=== PATIENT | female | born 1970 | race Caucasian/White ===

== ENCOUNTER 2018-04-26 10:42 | Inpatient (IN) | payer SELFPAY ==
[2018-04-26] VITALS (17 sets, daily range): BP systolic 90–139; BP diastolic 57–85; PULSE 86–127; RESP 12–32; TEMP 99.8–100.6; O2SAT 88–100
[~2018-04-26] VITALS: Ht 162.6 cm; Wt 76.2 kg
[2018-04-26] MEDS ORDERED: ETOMIDATE 40 MG/20 ML VIAL ONE (10:45)
[2018-04-26] MEDS ORDERED: SUCCINYLCHOLINE CHLORIDE 200 MG/10 ML VIAL ONE (10:45)
[2018-04-26] MEDS ORDERED: ETOMIDATE 20 MG/10 ML VIAL IV PUSH ONE (11:00)
[2018-04-26] MEDS ORDERED: ROCURONIUM INJ 50 MG/5 ML VIAL IV ONE (11:00)
--- NOTE | 2018-04-26 11:12 | PD ---
HPI Chief Complaint: OD/ Ingestion Time Seen by Provider: 10:56 Travel History International Travel<30 days: No (unknown) Contact w/Intl Traveler<30days: No (unknown) History of Present Illness HPI 48yo F with unknown PMH was brought in by [facility] for possible overdose. Pt was in a hotel in [place] and pt did not check out so [facility] was called and found pt on the floor, mumbling and not responding appropriately. There were many drug paraphernalia on the floor. Pt was in respiratory distress and O2 sat was in the 70s on room air. Pt placed on 100% nonrebreather mask and saturating in the 80s. Pt is moving all extremities but not oriented or answering questions. Pt is tachypneic with diffuse coarse breath sounds in bilateral lungs. Pt was emergently intubated. Unable to obtain further history. PFSH Past Medical History Medical History: Unable to Obtain Diminished Hearing: No Tetanus Vaccination: Unknown ?: Unknown Past Surgical History Surgical History: Unable to Obtain Social History Tobacco Use: No Substance Use: Yes Allergies-Medications (Allergen,Severity, Reaction): Coded Allergies: No Allergy Information Available (Unverified , 04/26/18) Reported Meds & Prescriptions Reported Meds & Active Scripts Active Active Prescriptions or Reported Medications Unobtainable Review of Systems ROS Limitations: Clinical Condition Physical Exam Narrative GENERAL: 48yo F in severe distress. SKIN: Focused skin assessment warm/dry. HEAD: Atraumatic. Normocephalic. EYES: Pupils equal and round at 3mm bilaterally. ENT: No nasal bleeding or discharge. Mucous membranes pink and moist. NECK: Trachea midline. No JVD. CARDIOVASCULAR: Tachycardic in the 110s. No murmur appreciated. RESPIRATORY: + accessory muscle use. Coarse breath sounds bilaterally. GASTROINTESTINAL: Abdomen soft, non-tender, nondistended. Hepatic and splenic margins not palpable. MUSCULOSKELETAL: No obvious deformities. No clubbing. No cyanosis. No edema. NEUROLOGICAL: Opens eyes, moves all extremities but mumbling and not answer questions. GCS 12. Data Data Last Documented VS Vital Signs Date Time Temp Pulse Resp B/P (MAP) Pulse Ox O2 Delivery O2 Flow Rate FiO2 04/26/18 11:57 99.8 127 18 139/85 (103) 95 Ventilator 100 04/26/18 10:50 15.00 Orders Orders Succinylcholine Inj (Quelicin Inj) (04/26/18 10:45) Etomidate Inj (Amidate Inj) (04/26/18 10:45) Rocuronium Inj (Zemuron Inj) (04/26/18 11:00) Etomidate Inj (Amidate Inj) (04/26/18 11:00) Complete Blood Count With Diff (04/26/18 10:56) Comprehensive Metabolic Panel (04/26/18 10:56) Prothrombin Time / Inr (Pt) (04/26/18 10:56) Act Partial Throm Time (Ptt) (04/26/18 10:56) Osmolality,Serum (04/26/18 10:56) Urinalysis - C+S If Indicated (04/26/18 10:56) Chest, Single Ap (04/26/18 10:56) Ct Brain W/O Iv Contrast(Rout) (04/26/18 10:56) Drug Screen, Random Urine (04/26/18 10:56) Alcohol (Ethanol) (04/26/18 10:56) Salicylates (Aspirin) (04/26/18 10:56) Tylenol (Acetaminophen) (04/26/18 10:56) Ed Urine Pregnancytest Poc (04/26/18 10:56) Urinary Catheter Insert/Apply (04/26/18 10:56) Restraints Non-Violent ARACELIS.Q3H (04/26/18 10:56) Arterial Blood Gas (Abg) (04/26/18 ) Propofol 1000 Mg/100 Ml Inj (Diprivan 10 (04/26/18 11:00) ^ Infusion (04/26/18 11:00) Troponin I (04/26/18 11:04) Electrocardiogram (04/26/18 11:06) Electrocardiogram (04/26/18 10:47) Piperacil-Tazo 4.5 Gm Premix (Zosyn 4.5 (04/26/18 11:45) Sodium Chlor 0.9% 1000 Ml Inj (Ns 1000 M (04/26/18 11:45) Vancomycin Inj (Vancomycin Inj) (04/26/18 11:45) Blood Culture (04/26/18 11:41) Lactic Acid Sepsis Protocol (04/26/18 12:00) Admit Order (Ed Use Only) (04/26/18 12:01) Sodium Chlor 0.9% 1000 Ml Inj (Ns 1000 M (04/26/18 12:15) Labs Laboratory Tests Test 04/26/18 10:55 04/26/18 10:58 04/26/18 11:31 04/26/18 12:00 White Blood Count 16.9 TH/MM3 Red Blood Count 4.56 MIL/MM3 Hemoglobin 13.8 GM/DL Hematocrit 42.0 % Mean Corpuscular Volume 92.2 FL Mean Corpuscular Hemoglobin 30.3 PG Mean Corpuscular Hemoglobin Concent 32.8 % Red Cell Distribution Width 14.6 % Platelet Count 315 TH/MM3 Mean Platelet Volume 8.6 FL Neutrophils (%) (Auto) 93.8 % Lymphocytes (%) (Auto) 3.8 % Monocytes (%) (Auto) 2.3 % Eosinophils (%) (Auto) 0.0 % Basophils (%) (Auto) 0.1 % Neutrophils # (Auto) 15.9 TH/MM3 Lymphocytes # (Auto) 0.6 TH/MM3 Monocytes # (Auto) 0.4 TH/MM3 Eosinophils # (Auto) 0.0 TH/MM3 Basophils # (Auto) 0.0 TH/MM3 CBC Comment DIFF FINAL Differential Comment Prothrombin Time 10.3 SEC Prothromb Time International Ratio 1.0 RATIO Activated Partial Thromboplast Time 21.9 SEC Blood Urea Nitrogen 19 MG/DL Creatinine 1.47 MG/DL Random Glucose 177 MG/DL Total Protein 7.6 GM/DL Albumin 3.8 GM/DL Calcium Level 8.3 MG/DL Alkaline Phosphatase 189 U/L Aspartate Amino Transf (AST/SGOT) 68 U/L Alanine Aminotransferase (ALT/SGPT) 39 U/L Total Bilirubin 0.8 MG/DL Sodium Level 141 MEQ/L Potassium Level 3.8 MEQ/L Chloride Level 106 MEQ/L Carbon Dioxide Level 23.4 MEQ/L Anion Gap 12 MEQ/L Estimat Glomerular Filtration Rate 38 ML/MIN Serum Osmolality 304 MOSM/KG Troponin I 0.02 NG/ML Random Cortisol 60.0 MCG/DL Salicylates Level LESS THAN 1.7 MG/DL Acetaminophen Level LESS THAN 2.0 MCG/ML Ethyl Alcohol Level LESS THAN 3 MG/DL Urine Color YELLOW Urine Turbidity CLEAR Urine pH 6.0 Urine Specific [place] 1.021 Urine Protein TRACE mg/dL Urine Glucose (UA) 300 mg/dL Urine Ketones NEG mg/dL Urine Occult Blood SMALL Urine Nitrite NEG Urine Bilirubin NEG Urine Urobilinogen LESS THAN 2.0 MG/DL Urine Leukocyte Esterase NEG Urine RBC 1 /hpf Urine WBC 1 /hpf Urine Squamous Epithelial Cells 1 /hpf Urine Mucus FEW /lpf Microscopic Urinalysis Comment CULT NOT INDICATED Urine Opiates Screen NEG Urine Barbiturates Screen NEG Urine Amphetamines Screen POS Urine Benzodiazepines Screen NEG Urine Cocaine Screen NEG Urine Cannabinoids Screen NEG Blood Gas Puncture Site LT RADIAL Blood Gas Patient Temperature 98.6 Blood Gas HCO3 21 mmol/L Blood Gas Base Excess -6.6 mmol/L Blood Gas Oxygen Saturation 93 % Arterial Blood pH 7.16 Arterial Blood Partial Pressure CO2 61 mmHg Arterial Blood Partial Pressure O2 90 mmHG Arterial Blood Oxygen Content 18.0 Vol % Arterial Blood Carboxyhemoglobin 0.6 % Arterial Blood Methemoglobin 0.7 % Blood Gas Hemoglobin 13.8 G/DL Oxygen Delivery Device VENTILATOR Blood Gas Ventilator Setting Blood Gas Inspired Oxygen 100 % Lactic Acid Level 2.3 mmol/L MDM Medical Decision Making Medical Screen Exam Complete: Yes Emergency Medical Condition: Yes Interpretation(s) EKG: Sinus tachycardia at 114bpm. LAD. Incomplete LBBB. Differential Diagnosis Pulmonary edema vs. aspiration pneumonia vs. AMS secondary to drug use vs. ICH Narrative Course 48yo F was brought in respiratory distress after being found on hotel room floor with drug paraphernalia around her. Pt was saturating in the 70s on room air and 80s with 100% nonrebreather with coarse breath sounds bilaterally so she was emergently intubated in the ED. There was blood and pink frothy sputum seen in airway during intubation. Labs reviewed, leukocytosis at 16.9. H/H normal. BUN/creatinine elevated at 19/1.47. Serum osmolality mildly elevated at 304. Osmolal gap is 5.38 which is normal. AST elevated at 68, pt may be chronic alcoholic. Utox positive for amphetamine. Alcohol negative. Acetaminophen negative. CXR showed diffuse interstitial and airspace disease predominantly throughout right lung. ET and NG tube in good position. No pneumothorax. CT brain negative. ABG showed respiratory acidosis with pH of 7.161, pCO2 of 60.4. HCO3 20.8. Will increase RR. Pt given NS IVFx2 and empirically covered with vancomycin and zosyn. Pt has good peripheral IV access with 18 gauge in left AC and 20 gauge in right AC. Troponin pending. Discussed with floor steward/stewardess Dr. Hayden and accepted to her service. Critical Care Narrative Aggregate critical care time was 45 minutes. Time to perform other separately billable procedures was not included in the critical care time. My time did not include minutes spent treating any other patients simultaneously or on activities that did not directly contribute to the patient's treatment. The services I provided to this patient were to treat and/or prevent clinically significant deterioration that could result in: cardiovascular collapse or . I provided critical care services requiring my management, as noted below: Chart data review, documentation time, medication orders and management, vital sign assessments/reviewing monitor data, ordering and reviewing lab tests, ordering and interpreting/reviewing x-rays and diagnostic studies, care of the patient and discussion of the patient with the admitting physicians. Procedures Procedure Narrative The patient was put in optimal position for the procedure. Rapid sequence intubation was initiated by me using 20 milligrams of etomidate IV and 50 milligrams of rocuronium IV. The patient was intubated with a 7.5 cuffed endotracheal tube. Tube placement was confirmed by visualization of the tube and balloon passing through the cords, capnometry and subsequent chest x-ray. Breath sounds were equal and well aerated bilaterally postintubation. No breath sounds over stomach. Patient tolerated procedure well. Diagnosis Primary Impression: Acute respiratory failure with hypoxia and hypercapnia Admitting Information Admitting Physician Requests: Admit Scripts Unable to Obtain Active Prescriptions or Reported Meds Devorah Valera DO April 26, 2018 11:12
[2018-04-26 11:18] LABS: AUTOMATED NEUTROPHIL # 15.9 TH/MM3 (1.8-7.7); BASOPHIL % 0.1 % (0.0-2.0); HEMOGLOBIN 13.8 GM/DL (11.6-15.3); LYMPH % 3.8 % (9.0-44.0); LYMPHOCYTE # 0.6 TH/MM3 (1.0-4.8); MEAN CELL VOLUME 92.2 FL (80.0-100.0); MEAN CORPUSCULAR HEMOGLOBIN 30.3 PG (27.0-34.0); MEAN CORPUSCULAR HGB CONC 32.8 % (32.0-36.0); MEAN PLATELET VOLUME 8.6 FL (7.0-11.0); MONO % 2.3 % (0.0-8.0); MONOCYTE # 0.4 TH/MM3 (0-0.9); NEUT % 93.8 % (16.0-70.0); PLATELET COUNT 315 TH/MM3 (150-450); RED BLOOD COUNT 4.56 MIL/MM3 (4.00-5.30); RED CELL DISTRIBUTION WIDTH 14.6 % (11.6-17.2); WHITE BLOOD COUNT 16.9 TH/MM3 (4.0-11.0)
--- NOTE | 2018-04-26 11:24 | RADRPT ---
EXAM DATE: 04/26/2018 11:18 AM EDT AGE/SEX: 48 years / Female INDICATIONS: Shortness of breath and hypoxemia. CLINICAL DATA: This is the patient's initial encounter. Patient reports that signs and symptoms have been present for 1 day and indicates a pain score of Nonresponsive. MEDICAL/SURGICAL HISTORY: Non-responsive. Non-responsive. COMPARISON: No prior [place] exams available for comparison. FINDINGS: Patient is status post placement of an endotracheal tube and NG tube which appear to be in good posit ion. There is no pneumothorax. There is diffuse interstitial and airspace disease throughout the rig ht lung. Left lung is grossly clear. The bony structures are grossly intact. The heart size is upper limits of normal. No significant pleural effusions are demonstrated. CONCLUSION: 1. Diffuse interstitial and airspace disease is seen predominantly throughout the right lung. 2. The endotracheal tube and NG tube appear to be in good position. 3. No evidence of pneumothorax. Electronically signed by: Paco Mora MD 04/26/2018 11:22 AM EDT
[2018-04-26 11:30] LABS: PROTHROMBIN TIME - PATIENT 10.3 SEC (9.8-11.6)
[2018-04-26 11:34] LABS: ALBUMIN 3.8 GM/DL (3.4-5.0); ALT (GPT) 39 U/L (10-53); AST (GOT) 68 U/L (15-37); BICARBONATE 23.4 MEQ/L (21.0-32.0); BLOOD UREA NITROGEN 19 MG/DL (7-18); CALCIUM 8.3 MG/DL (8.5-10.1); CHLORIDE 106 MEQ/L (98-107); CREATININE 1.47 MG/DL (0.50-1.00); GLOMERULAR FILTRATION RATE 38 ML/MIN (>89); GLUCOSE,RANDOM 177 MG/DL (74-106); SODIUM (NA) 141 MEQ/L (136-145)
[2018-04-26 11:36] LABS: ALKALINE PHOSPHATASE 189 U/L (45-117); TOTAL BILIRUBIN ADULT 0.8 MG/DL (0.2-1.0); TOTAL PROTEIN 7.6 GM/DL (6.4-8.2)
[2018-04-26 11:39] LABS: ACETAMINOPHEN LESS THAN 2.0 MCG/ML (10.0-30.0)
[2018-04-26] MEDS: PROPOFOL 1000 MG/100 ML INJ 100 ML IV PRN ×2 (11:42→18:09)
[2018-04-26] MEDS ORDERED: PIPERACIL-TAZO 4.5 GM PREMIX 100 ML IV ONE (11:45)
[2018-04-26] MEDS ORDERED: SODIUM CHLOR 0.9% 1000 ML INJ 1,000 ML IV ONE ×2 (11:45→12:15)
[2018-04-26] MEDS ORDERED: VANCOMYCIN INJ 1,050 MG in SODIUM CHLOR 0.9% 250 ML INJ 250 ML IV ONE (11:45)
--- NOTE | 2018-04-26 11:47 | RADRPT ---
EXAM DATE: 04/26/2018 11:34 AM EDT AGE/SEX: 48 years / Female INDICATIONS: Found in hotel room, possible overdose. CLINICAL DATA: This is the patient's initial encounter. Patient reports that signs and symptoms have been present for 1 day and indicates a pain score of 0/10. MEDICAL/SURGICAL HISTORY: Non-responsive. Non-responsive. RADIATION DOSE: 56.35 CTDI (mGy) COMPARISON: No prior [facility] exams available for comparison. TECHNIQUE: CT of the head without contrast. Using automated exposure control and adjustment of the mA and/or kV according to patient size, radiation dose was kept as low as reasonably achievable to ob tain optimal diagnostic quality images. FINDINGS: Cerebrum: The ventricles are normal for age. No evidence of midline shift, mass lesion, hemorrhage or acute infarction. No extraaxial fluid collections are seen. Posterior Fossa: The cerebellum and brainstem are intact. The 4th ventricle is midline. The cerebe llopontine angle is unremarkable. Extracranial: The visualized portion of the orbits is intact. Skull: The calvaria is intact. No evidence of skull fracture. CONCLUSION: 1. Unremarkable CT scan of the brain. Electronically signed by: Paco Mora MD 04/26/2018 11:45 AM EDT
[2018-04-26 11:55] LABS: BILIRUBIN, URINE NEG (NEG); BLOOD, URINE SMALL (NEG); GLUCOSE,URINE 300 mg/dL (NEG); KETONE, URINE NEG (NEG); MUCUS URINE FEW /lpf (OCC); NITRITE,URINE NEG (NEG); SQUAMOUS EPITHELIAL CELL URINE 1 /hpf (0-5); URINE COLOR YELLOW (YELLW/STRAW); URINE LEUKOCYTE ESTERASE NEG (NEG)
[2018-04-26] MEDS ORDERED: MAGNESIUM OXIDE 400 MG TAB PO PRN (12:00)
[2018-04-26] MEDS ORDERED: NURSING INFORMATION XX SCH (12:00)
[2018-04-26] MEDS ORDERED: SODIUM PHOSPHATE INJ 30 MMOL in SODIUM CHLOR 0.9% 250 ML INJ 240 ML IV PRN (12:00)
[2018-04-26] MEDS: PIPERACIL-TAZO 4.5 GM PREMIX 100 ML IV SCH ×3 (12:00→23:42)
[2018-04-26] MEDS ORDERED: POTASSIUM CHLOR 40 MEQ PREMIX 100 ML IV PRN ×2 (12:00)
[2018-04-26] MEDS ORDERED: ACETAMINOPHEN 325 MG TAB PO PRN (12:00)
[2018-04-26] MEDS ORDERED: MAGNESIUM SULFATE INJ 2 GM in SODIUM CHLORIDE 0.9% INJ 96 ML IV PRN (12:00)
[2018-04-26] MEDS ORDERED: PROPOFOL 1000 MG/100 ML INJ 100 ML IV PRN (12:00)
[2018-04-26] MEDS ORDERED: CHLORHEXIDINE GLUCONATE 2 % 1 PACK (2 CLOTHS) TOP PRN (12:00)
[2018-04-26] MEDS ORDERED: POTASSIUM PHOSPHATE INJ 30 MMOL in SODIUM CHLOR 0.9% 250 ML INJ 250 ML IV PRN (12:00)
[2018-04-26] MEDS ORDERED: LACTULOSE SYRUP 20 GM/30 ML CUP PO PRN (12:00)
[2018-04-26] MEDS ORDERED: BISACODYL 10 MG SUPP RECTAL PRN (12:00)
[2018-04-26] MEDS ORDERED: SODIUM CHLORIDE 0.9% FLUSH 10 ML FLUSH IV FLUSH PRN (12:00)
[2018-04-26] MEDS ORDERED: SENNOSIDES 8.6 MG TAB PO PRN (12:00)
[2018-04-26] MEDS ORDERED: POTASSIUM PHOSPHATE MONOBASIC 500 MG TAB PO/TUBE PRN (12:00)
[2018-04-26] MEDS ORDERED: POTASSIUM PHOSPHATE MONOBASIC 500 MG TAB PO PRN (12:00)
[2018-04-26] MEDS ORDERED: MAGNESIUM SULFATE INJ 4 GM in SODIUM CHLORIDE 0.9% INJ 92 ML IV PRN (12:00)
[2018-04-26] MEDS ORDERED: MAGNESIUM HYDROXIDE SUSP 30 ML CUP PO PRN (12:00)
[2018-04-26 12:34] LABS: LACTIC ACID SEPSIS PROTOCOL 2.3 mmol/L (0.4-2.0)
[2018-04-26] MEDS: AZITHROMYCIN INJ 500 MG in SODIUM CHLOR 0.9% 250 ML INJ 250 ML IV SCH (12:39)
[2018-04-26] MEDS: SODIUM CHLOR 0.9% 1000 ML INJ 1,000 ML IV SCH ×2 (12:41→20:42)
[2018-04-26] MEDS: HEPARIN SODIUM - SQ 10,000 UNITS/ML VIAL SQ SCH ×2 (12:41→23:41)
[2018-04-26] MEDS: ARTIFICIAL TEARS OPTH SOLN 15 ML BTL EACH EYE SCH ×2 (13:00→18:00)
[2018-04-26 14:38] LABS: PHOSPHORUS 1.3 MG/DL (2.5-4.9)
[2018-04-26] MEDS: RESP: ALBUTEROL 2.5 MG/IPRATROPIUM 0.5 MG NEB (SCH) INH ×2 (15:26→20:52)
--- NOTE | 2018-04-26 16:00 | HHI.HP ---
HPI Service Critical Care Medicine Primary Care Physician Unknown Admission Diagnosis Acute hypoxic, hypercapnic respiratory failure Diagnosis: Travel History International Travel<30 Days: No Contact w/Intl Traveler <30 Da: No Traveled to Known Affected Are: No History of Present Illness HPI This is a 48yo female with unknown PMH that was transferred to [facility] ED for possible overdose. Per report the patient was in a hotel and pt was scheduled to check out of the hotel, and upon evaluation [facility] was called . The patient was found pt on the floor, mumbling and not responding appropriately. Per report there was drug paraphernalia on the floor in the hotel around the patient. The patient was noted to be in respiratory distress and O2 sat was in the 70s on room air. Pt placed on 100% nonrebreather mask and the O2 saturation increased to the 80s. In the ED , the patient was moving all extremities but was not oriented or answering questions. Pt was tachypneic with diffuse coarse breath sounds in bilateral lungs. Pt was emergently intubated. Imaging and laboratory studies reveal urine toxicity positive for amphetamines unable to obtain further history. Critical care medicine was consulted Allergies-Medications (Allergen,Severity, Reaction): Coded Allergies: No Allergy Information Available (Unverified , 04/26/18) Reported Meds & Prescriptions Reported Meds & Active Scripts Active Active Prescriptions or Reported Medications Unobtainable Review of Systems ROS Limitations: Clinical Condition, Intubated Past Family Social History Allergies: Coded Allergies: No Allergy Information Available (Unverified , 04/26/18) Past Medical History Unable to obtain secondary to clinical condition Past Surgical History Unable to obtain secondary to clinical condition Reported Medications Unable to obtain secondary to clinical condition/unknown Active Ordered Medications see MAR Family History Unable to obtain secondary to clinical condition Social History Positive for amphetamine use, unable to obtain social history secondary to clinical condition Physical Exam Vital Signs Vital Signs Date Time Temp Pulse Resp B/P (MAP) Pulse Ox O2 Delivery O2 Flow Rate FiO2 04/26/18 15:35 92 04/26/18 15:28 04/26/18 14:22 100 60 04/26/18 14:00 96 24 103/70 (81) 99 Ventilator 04/26/18 13:23 96 29 90/60 (70) 98 Ventilator 60 04/26/18 12:51 102 31 108/65 (79) 97 Ventilator 60 04/26/18 12:37 60 5/26/18 12:08 120 125/77 (93) 04/26/18 11:57 99.8 127 18 139/85 (103) 95 Ventilator 100 04/26/18 11:29 92 100 04/26/18 10:59 100 12 120/70 (87) 96 Ventilator 04/26/18 10:50 100 04/26/18 10:50 92 100 04/26/18 10:50 33 87 Non-Rebreather 15.00 04/26/18 10:43 126 32 139/75 (96) 88 Physical Exam GENERAL: This is a well-developed well-nourished female currently intubated and sedated SKIN: Warm and dry. HEAD: Atraumatic. Normocephalic. EYES: Pupils equal and round. No scleral icterus. No injection or drainage. ENT: No nasal bleeding or discharge. Mucous membranes pink and moist. NECK: Trachea midline. No JVD. CARDIOVASCULAR: Normal rate, regular rhythm. RESPIRATORY: No accessory muscle use. Coarse breath sounds right greater than left. Breath sounds equal bilaterally. GASTROINTESTINAL: Abdomen soft, non-tender, nondistended. No guarding. MUSCULOSKELETAL: Extremities without clubbing, cyanosis, or edema. No obvious deformities. NEUROLOGICAL: GCS 3 T. Currently on propofol infusion . No gross focal/sensory deficits. Spontaneous movement of all 4 extremities. Laboratory Laboratory Tests Test 04/26/18 10:55 04/26/18 10:58 04/26/18 11:31 04/26/18 12:00 White Blood Count 16.9 Red Blood Count 4.56 Hemoglobin 13.8 Hematocrit 42.0 Mean Corpuscular Volume 92.2 Mean Corpuscular Hemoglobin 30.3 Mean Corpuscular Hemoglobin Concent 32.8 Red Cell Distribution Width 14.6 Platelet Count 315 Mean Platelet Volume 8.6 Neutrophils (%) (Auto) 93.8 Lymphocytes (%) (Auto) 3.8 Monocytes (%) (Auto) 2.3 Eosinophils (%) (Auto) 0.0 Basophils (%) (Auto) 0.1 Neutrophils # (Auto) 15.9 Lymphocytes # (Auto) 0.6 Monocytes # (Auto) 0.4 Eosinophils # (Auto) 0.0 Basophils # (Auto) 0.0 CBC Comment DIFF FINAL Differential Comment Prothrombin Time 10.3 Prothromb Time International Ratio 1.0 Activated Partial Thromboplast Time 21.9 Blood Urea Nitrogen 19 Creatinine 1.47 Random Glucose 177 Total Protein 7.6 Albumin 3.8 Calcium Level 8.3 Alkaline Phosphatase 189 Aspartate Amino Transf (AST/SGOT) 68 Alanine Aminotransferase (ALT/SGPT) 39 Total Bilirubin 0.8 Sodium Level 141 Potassium Level 3.8 Chloride Level 106 Carbon Dioxide Level 23.4 Anion Gap 12 Estimat Glomerular Filtration Rate 38 Serum Osmolality 304 Troponin I 0.02 Salicylates Level LESS THAN 1.7 Acetaminophen Level LESS THAN 2.0 Ethyl Alcohol Level LESS THAN 3 Urine Color YELLOW Urine Turbidity CLEAR Urine pH 6.0 Urine Specific [place] 1.021 Urine Protein TRACE Urine Glucose (UA) 300 Urine Ketones NEG Urine Occult Blood SMALL Urine Nitrite NEG Urine Bilirubin NEG Urine Urobilinogen LESS THAN 2.0 Urine Leukocyte Esterase NEG Urine RBC 1 Urine WBC 1 Urine Squamous Epithelial Cells 1 Urine Mucus FEW Microscopic Urinalysis Comment CULT NOT INDICATED Urine Opiates Screen NEG Urine Barbiturates Screen NEG Urine Amphetamines Screen POS Urine Benzodiazepines Screen NEG Urine Cocaine Screen NEG Urine Cannabinoids Screen NEG Blood Gas Puncture Site LT RADIAL Blood Gas Patient Temperature 98.6 Blood Gas HCO3 21 Blood Gas Base Excess -6.6 Blood Gas Oxygen Saturation 93 Arterial Blood pH 7.16 Arterial Blood Partial Pressure CO2 61 Arterial Blood Partial Pressure O2 90 Arterial Blood Oxygen Content 18.0 Arterial Blood Carboxyhemoglobin 0.6 Arterial Blood Methemoglobin 0.7 Blood Gas Hemoglobin 13.8 Oxygen Delivery Device VENTILATOR Blood Gas Ventilator Setting Blood Gas Inspired Oxygen 100 Lactic Acid Level 2.3 Test 04/26/18 13:57 04/26/18 15:02 Phosphorus Level 1.3 Ammonia 35 Total Creatine Kinase 1459 Creatine Kinase MB 17.8 Creatine Kinase MB % 1.2 Lactic Acid Level 2.3 Date/Time Source Procedure Growth Status 04/26/18 11:50 Blood Peripheral Aerobic Blood Culture Pending Received 04/26/18 11:50 Blood Peripheral Anaerobic Blood Culture Pending Received Result Diagram: 04/26/18 1055 04/26/18 1055 Imaging Last Impressions Head CT 04/26/18 1056 Signed Impressions: CONCLUSION: 1. Unremarkable CT scan of the brain. Chest X-Ray 04/26/18 1056 Signed Impressions: CONCLUSION: 1. Diffuse interstitial and airspace disease is seen predominantly throughout the right lung. 2. The endotracheal tube and NG tube appear to be in good position. 3. No evidence of pneumothorax. Septic Shock Reassessment Septic shock perfusion: reassessment completed Caprini VTE Risk Assessment Caprini VTE Risk Assessment: Mod/High Risk (score >= 2) Caprini Risk Assessment Model Point Value = 1 Point Value = 2 Point Value = 3 Point Value = 5 Age 41-60 Minor surgery BMI > 25 kg/m2 Swollen legs Varicose veins or History of unexplained or recurrent spontaneous Oral contraceptives or hormone replacement Sepsis (< 1 month) Serious lung disease, including pneumonia (< 1 month) Abnormal pulmonary function Acute myocardial infarction Congestive heart failure (< 1 month) History of inflammatory bowel disease Medical patient at bed rest Age 61-74 Arthroscopic surgery Major open surgery (> 45 min) Laparoscopic surgery (> 45 min) Malignancy Confined to bed (> 72 hours) Immobilizing plaster cast Central venous access Age >= 75 History of VTE Family history of VTE Factor V Leiden Prothrombin [id number] Lupus anticoagulant Anticardiolipin antibodies Elevated serum homocysteine Heparin-induced thrombocytopenia Other congenital or acquired thrombophilia Stroke (< 1 month) Elective arthroplasty Hip, pelvis, or leg fracture Acute spinal cord injury (< 1 month) Prophylaxis Regimen Total Risk Factor Score Risk Level Prophylaxis Regimen 0-1 Low Early ambulation 2 Moderate Order ONE of the following: *Sequential Compression Device (SCD) *Heparin 5000 units SQ BID 3-4 Higher Order ONE of the following medications: *Heparin 5000 units SQ TID *Enoxaparin/Lovenox 40 mg SQ daily (WT < 150 kg, CrCl > 30 mL/min) *Enoxaparin/Lovenox 30 mg SQ daily (WT < 150 kg, CrCl > 10-29 mL/min) *Enoxaparin/Lovenox 30 mg SQ BID (WT < 150 kg, CrCl > 30 mL/min) AND/OR *Sequential Compression Device (SCD) 5 or more Highest Order ONE of the following medications: *Heparin 5000 units SQ TID (Preferred with Epidurals) *Enoxaparin/Lovenox 40 mg SQ daily (WT < 150 kg, CrCl > 30 mL/min) *Enoxaparin/Lovenox 30 mg SQ daily (WT < 150 kg, CrCl > 10-29 mL/min) *Enoxaparin/Lovenox 30 mg SQ BID (WT < 150 kg, CrCl > 30 mL/min) AND *Sequential Compression Device (SCD) Assessment and Plan Problem List: (1) Rhabdomyolysis ICD Code: M62.82 - Rhabdomyolysis Status: Acute (2) DAVIE (acute kidney injury) ICD Code: N17.9 - Acute kidney failure, unspecified Status: Acute (3) Hyperammonemia ICD Code: E72.20 - Disorder of urea cycle metabolism, unspecified Status: Acute (4) Substance abuse ICD Code: F19.10 - Other psychoactive substance abuse, uncomplicated Status: Acute (5) Acute respiratory failure with hypoxia and hypercapnia ICD Code: J96.01 - Acute respiratory failure with hypoxia; J96.02 - Acute respiratory failure with hypercapnia Status: Acute Assessment and Plan Assessment This is a 48-year-old female found down with altered mental status, unable to protect airway and hypercapnic and hypoxemic respiratory failure. Patient currently with rhabdomyolysis, leukocytosis hyperammonemia. The patient is critically ill admit to ICU. Plan by systems: Neurologic: Encephalopathy Substance use disorder 04/26-CT brain negative Propofol infusion to maintain ventilator synchrony, will add fentanyl Daily sedation vacation Monitor for signs of withdrawal Obtain EEG Daily sedation vacation Obtain TSH level Obtain cortisol level Respiratory: Acute hypoxic and hypercapnic respiratory failure Probable aspiration Maintain O2 saturation greater than 92% 04/26-intubated for airway protection Chest x-ray Diffuse interstitial airspace disease-predominantly right lobe wean FiO2 to 50%. Repeat ABG Ventilator bundle Duo nebs every 6 hours scheduled and every 2 hours as needed Begin CPAP trials Cardiovascular: Sinus tachycardia Initial troponin 0 0.02, continue to monitor Maintain MAP greater than 65mmHg Obtain echo rule out endocarditis Renal: Maintain [place] -- Strict I/Os FEN/GI: Rhabdomyolysis AK I Hyperammonemia Increase normal saline to 125 cc/an hour. The patient received 2 L normal saline in the ED. Trend CK MD, and creatinine kinase Creatinine 1.4, continue to trend Lactulose 30ml/day Trend ammonia level Heme/ID: Leukocytosis Obtain blood , sputum cultures Monitor CBC Continue azithromycin and Zosyn Endocrine: Glucose monitoring per ICU protocol, low-dose regimen -- SSI Prophylaxis: GI Prophylaxis Famotidine twice daily DVT Prophylaxis -- SCDs Heparin every 12 hours Lines: Peripheral IVs 2. Central line if indicated Dispo: my billing statement This patient remains critically ill with one or more organ systems which are or may become a threat to life. I have spent in excess of 53 minutes discontinuously in the care and management of this patient. This time is exclusive of procedures, and includes, but is not limited to, evaluation of the patient, review of the medical record, discussions with family, consultants, nursing staff, or respiratory therapy, and documentation in the medical record. Code Status Full Discussed Condition With Dr. Moraima lakhani at bedside Taty Hayden MD April 26, 2018 16:00
[2018-04-26] MEDS: LACTULOSE SYRUP 20 GM/30 ML CUP PO SCH (16:13)
[2018-04-26] MEDS ORDERED: fentaNYL DRIP 250 ML IV PRN (16:30)
[2018-04-26] MEDS: SODIUM CHLORIDE 0.9% FLUSH 10 ML FLUSH IV FLUSH SCH (20:42)
[2018-04-26] MEDS: DOCUSATE SODIUM 50 MG/SENNA 8.6 MG TAB PO SCH (20:42)
[2018-04-26] MEDS: CHLORHEXIDINE 0.12% (ORAL KIT) 15 ML CUP MT SCH (20:42)
[2018-04-26] MEDS: FAMOTIDINE 20 MG/2 ML VIAL IV PUSH SCH (20:42)
[2018-04-26] MEDS ORDERED: FAMOTIDINE 20 MG/2 ML VIAL IV PUSH SCH (21:00)
[2018-04-27] VITALS (17 sets, daily range): BP systolic 80–107; BP diastolic 52–69; PULSE 62–104; RESP 18–34; TEMP 97.8–99; O2SAT 95–100
[2018-04-27] MEDS ORDERED: SODIUM CHLOR 0.9% 1000 ML INJ 3,000 ML IV STA (02:15)
[2018-04-27] MEDS: DEXMEDETOMIDINE 200 MCG in NS 48 ML IV PRN ×2 (02:35→07:45)
[2018-04-27] MEDS: CHLORHEXIDINE GLUCONATE 2 % 1 PACK (2 CLOTHS) TOP SCH (03:14)
[2018-04-27] MEDS: RESP: ALBUTEROL 2.5 MG/IPRATROPIUM 0.5 MG NEB (SCH) INH ×4 (03:58→22:13)
[2018-04-27 04:18] LABS: AUTOMATED NEUTROPHIL # 5.6 TH/MM3 (1.8-7.7); BASOPHIL % 0.1 % (0.0-2.0); EOSINOPHIL % 0.1 % (0.0-4.0); HEMATOCRIT 29.5 % (35.0-46.0); HEMOGLOBIN 10.1 GM/DL (11.6-15.3); LYMPH % 17.8 % (9.0-44.0); LYMPHOCYTE # 1.3 TH/MM3 (1.0-4.8); MEAN CELL VOLUME 92.1 FL (80.0-100.0); MEAN CORPUSCULAR HEMOGLOBIN 31.4 PG (27.0-34.0); MEAN CORPUSCULAR HGB CONC 34.1 % (32.0-36.0); MEAN PLATELET VOLUME 8.7 FL (7.0-11.0); MONO % 4.1 % (0.0-8.0); MONOCYTE # 0.3 TH/MM3 (0-0.9); NEUT % 77.9 % (16.0-70.0); PLATELET COUNT 121 TH/MM3 (150-450); RED BLOOD COUNT 3.21 MIL/MM3 (4.00-5.30); RED CELL DISTRIBUTION WIDTH 14.6 % (11.6-17.2); WHITE BLOOD COUNT 7.2 TH/MM3 (4.0-11.0)
[2018-04-27] MEDS: PIPERACIL-TAZO 4.5 GM PREMIX 100 ML IV SCH ×3 (04:18→18:00)
[2018-04-27 04:45] LABS: INTERNATIONAL NORMALIZED RATIO 1.2 RATIO; PROTHROMBIN TIME - PATIENT 12.2 SEC (9.8-11.6)
[2018-04-27 05:18] LABS: ALBUMIN 2.3 GM/DL (3.4-5.0); BICARBONATE 21.3 MEQ/L (21.0-32.0); CALCIUM 6.4 MG/DL (8.5-10.1); CALCIUM-PROTEIN CORRECTED 7.5 MG/DL (8.5-10.1); CREATININE 1.05 MG/DL (0.50-1.00); MAGNESIUM 1.6 MG/DL (1.5-2.5); PHOSPHORUS 2.8 MG/DL (2.5-4.9); TOTAL BILIRUBIN ADULT 1.8 MG/DL (0.2-1.0); TOTAL PROTEIN 4.9 GM/DL (6.4-8.2); TROPONIN I 0.05 NG/ML (0.02-0.05)
[2018-04-27] MEDS: SODIUM CHLOR 0.9% 1000 ML INJ 1,000 ML IV SCH ×2 (06:04→14:53)
--- NOTE | 2018-04-27 06:21 | RADRPT ---
EXAM DATE: 04/27/2018 6:18 AM EDT AGE/SEX: 48 years / Female INDICATIONS: Shortness of breath, possible pulmonary disease. CLINICAL DATA: This is the patient's subsequent encounter. Patient reports that signs and symptoms h ave been present for 2 days and indicates a pain score of Nonresponsive. MEDICAL/SURGICAL HISTORY: Non-responsive. Non-responsive. COMPARISON: [facility] [place], CHEST SINGLE AP, 04/26/2018. . FINDINGS: Right greater than left airspace opacities are modestly improved in the interim. No pleural effusion seen. No pneumothorax. Heart size stable, upper limits of normal. Endotracheal tube tip is approximately 2.4 cm above the sue. Nasogastric tube courses into the sto mach. CONCLUSION: Slightly improved bilateral airspace opacities. Electronically signed by: Pawan Atkins MD 04/27/2018 6:20 AM EDT
[2018-04-27 07:21] LABS: BANDS 27 % (0-6); BASOPHILS 1 % (0-2); LYMPHOCYTES 12 % (9-44); MONOCYTES 4 % (0-8); POLYS (SEG NEUTROPHILS) 56 % (16-70)
[2018-04-27 07:22] LABS: DOHLE BODIES PRESENT (NONE SEEN)
[2018-04-27 07:23] LABS: OVALOCYTES 1+ (NORMAL)
[2018-04-27] MEDS: CHLORHEXIDINE 0.12% (ORAL KIT) 15 ML CUP MT SCH ×2 (08:00→20:00)
[2018-04-27] MEDS: FAMOTIDINE 20 MG/2 ML VIAL IV PUSH SCH ×2 (08:30→21:19)
[2018-04-27] MEDS: LACTULOSE SYRUP 20 GM/30 ML CUP PO SCH (08:34)
[2018-04-27] MEDS: ARTIFICIAL TEARS OPTH SOLN 15 ML BTL EACH EYE SCH ×3 (09:00→18:00)
[2018-04-27] MEDS: DOCUSATE SODIUM 50 MG/SENNA 8.6 MG TAB PO SCH ×2 (09:00→21:00)
[2018-04-27] MEDS: SODIUM CHLORIDE 0.9% FLUSH 10 ML FLUSH IV FLUSH SCH (09:00)
--- NOTE | 2018-04-27 09:35 | HHI.CCPN ---
Subjective Remarks/Hospital Course This is a 48yo female with unknown PMH that was transferred to [facility] ED for possible overdose. Per report the patient was in a hotel and pt was scheduled to check out of the hotel, and upon evaluation EVAC was called . The patient was found pt on the floor, mumbling and not responding appropriately. Per report there was drug paraphernalia on the floor in the hotel around the patient. The patient was noted to be in respiratory distress and O2 sat was in the 70s on room air. Pt placed on 100% nonrebreather mask and the O2 saturation increased to the 80s. In the ED , the patient was moving all extremities but was not oriented or answering questions. Pt was tachypneic with diffuse coarse breath sounds in bilateral lungs. Pt was emergently intubated. Imaging and laboratory studies reveal urine toxicity positive for amphetamines unable to obtain further history. Critical care medicine was consulted Subjective: 04/27: No acute events overnight. Leukocytosis resolved. Patient continues on antibiotics. EEG obtained. patient alert awake oriented following commands this a.m.. Currently on CPAP trials greater than 2 hours plan for SBT and possible extubation this a.m. Objective Vital Signs Date Time Temp Pulse Resp B/P (MAP) Pulse Ox O2 Delivery O2 Flow Rate FiO2 04/27/18 08:14 100 40 04/27/18 08:00 68 04/27/18 08:00 97.8 18 80/53 (62) 04/26/18 14:00 Ventilator 04/26/18 10:50 15.00 Intake and Output 04/27/18 04/27/18 04/28/18 08:00 16:00 00:00 Intake Total 2200 ml Output Total 600 ml Balance 1600 ml Result Diagram: 04/27/18 0400 04/27/18 0400 Other Results Laboratory Tests Test 04/26/18 11:31 04/26/18 16:25 Blood Gas Puncture Site LT RADIAL RT RADIAL Blood Gas Patient Temperature 98.6 98.6 Blood Gas HCO3 21 mmol/L (22-26) 20 mmol/L (22-26) Blood Gas Base Excess -6.6 mmol/L (-2-2) -4.6 mmol/L (-2-2) Blood Gas Oxygen Saturation 93 % (90-100) 97 % (90-100) Arterial Blood pH 7.16 (7.380-7.420) 7.38 (7.380-7.420) Arterial Blood Partial Pressure CO2 61 mmHg (38-42) 34 mmHg (38-42) Arterial Blood Partial Pressure O2 90 mmHG (61-120) 112 mmHg (61-120) Arterial Blood Oxygen Content 18.0 Vol % (12.0-20.0) 15.2 Vol % (12.0-20.0) Arterial Blood Carboxyhemoglobin 0.6 % (0-4) 0.7 % (0-4) Arterial Blood Methemoglobin 0.7 % (0-2) 0.6 % (0-2) Blood Gas Hemoglobin 13.8 G/DL (12.0-16.0) 11.0 G/DL (12.0-16.0) Oxygen Delivery Device VENTILATOR VENTILATOR Blood Gas Ventilator Setting PRVC/AC 18/600 Blood Gas Inspired Oxygen 100 % 40 % Imaging Last Impressions Chest X-Ray 04/27/18 0000 Signed Impressions: CONCLUSION: Slightly improved bilateral airspace opacities. Head CT 04/26/18 105 Signed Impressions: CONCLUSION: 1. Unremarkable CT scan of the brain. Last Impressions Head CT 04/26/18 105 Signed Impressions: CONCLUSION: 1. Unremarkable CT scan of the brain. Chest X-Ray 04/26/18 105 Signed Impressions: CONCLUSION: 1. Diffuse interstitial and airspace disease is seen predominantly throughout the right lung. 2. The endotracheal tube and NG tube appear to be in good position. 3. No evidence of pneumothorax. Objective Remarks GENERAL: This is a well-developed well-nourished female intubated, following commands, response SKIN: Warm and dry. HEAD: Atraumatic. Normocephalic. EYES: Pupils equal and round. No scleral icterus. No injection or drainage. ENT: No nasal bleeding or discharge. Mucous membranes pink and moist. NECK: Trachea midline. No JVD. CARDIOVASCULAR: Normal rate, regular rhythm. RESPIRATORY: No accessory muscle use. Mild expiratory wheeze bilateral bases. Breath sounds equal bilaterally. GASTROINTESTINAL: Abdomen soft, non-tender, nondistended. No guarding. MUSCULOSKELETAL: Extremities without clubbing, cyanosis, or edema. No obvious deformities. NEUROLOGICAL: GCS11T. Currently on Precedex infusion . No gross focal/sensory deficits. Following commands x 4 extremities. A/P Problem List: (1) Rhabdomyolysis ICD Code: M62.82 - Rhabdomyolysis Status: Acute (2) DAVIE (acute kidney injury) ICD Code: N17.9 - Acute kidney failure, unspecified Status: Acute (3) Hyperammonemia ICD Code: E72.20 - Disorder of urea cycle metabolism, unspecified Status: Acute (4) Substance abuse ICD Code: F19.10 - Other psychoactive substance abuse, uncomplicated Status: Acute (5) Acute respiratory failure with hypoxia and hypercapnia ICD Code: J96.01 - Acute respiratory failure with hypoxia; J96.02 - Acute respiratory failure with hypercapnia Status: Acute Assessment and Plan Assessment Plan by systems: Neurologic: Encephalopathy Substance use disorder 04/26-CT brain-negative Precedex infusion to maintain ventilator synchrony, and anticipation of ventilator weaning process. Will follow fentanyl discontinue Daily sedation vacation Monitor for signs of withdrawal 04/27 EEG-results pending Daily sedation vacation TSH level-0.7 WNL cortisol level-60.0 Respiratory: Acute hypoxic and hypercapnic respiratory failure Probable aspiration Maintain O2 saturation greater than 92% 04/26-intubated for airway protection CPAP trials this a.m., initiate SBT 04/27 chest [id number] improved bilateral airspace opacities Ventilator bundle Duo nebs every 6 hours scheduled and every 2 hours as needed Begin CPAP trials Cardiovascular: Sinus tachycardia-resolved Initial troponin 0 0.02, continue to monitor Maintain MAP greater than 65mmHg Obtain echo rule out endocarditis Renal: Maintain Banegas -- Strict I/Os FEN/GI: Rhabdomyolysis AK I Hyperammonemia Increase normal saline to 125 cc/an hour. The patient received 2 L normal saline in the ED. Trend CK MB, and creatinine kinase, now downtrending Creatinine 1.4, continue to trend Lactulose 30ml/day Trend ammonia level Heme/ID: Leukocytosis Bandemia F/U blood , sputum cultures Monitor CBC Continue azithromycin and Zosyn Bands 27% Endocrine: Glucose monitoring per ICU protocol, low-dose regimen -- SSI Prophylaxis: GI Prophylaxis Famotidine twice daily DVT Prophylaxis -- SCDs Heparin every 12 hours Lines: Peripheral IVs 2. Central line if indicated Dispo: my billing statement This patient remains critically ill with one or more organ systems which are or may become a threat to life. I have spent in excess of 39 minutes discontinuously in the care and management of this patient. This time is exclusive of procedures, and includes, but is not limited to, evaluation of the patient, review of the medical record, discussions with family, consultants, nursing staff, or respiratory therapy, and documentation in the medical record. Physician Taty Zamudio MD April 27, 2018 09:35
--- NOTE | 2018-04-27 10:24 | MG ---
cc: Alvarez Self MD [facility] [id number]. INDICATION: Intubated. Hyperventilation not performed. CT normal. Found on floor of a hotel, possible overdose. DESCRIPTION: Diffuse alpha, beta and theta waves are seen. The patient appears to be in some stage II sleep early on, which is synchronous and symmetric. Hyperventilation is not performed. Photic stimulation is performed at the end of the recording, significant posterior driving. No epileptiform or seizure activity seen. IMPRESSION: Normal stage II sleep electroencephalogram. No evidence for focal or diffuse abnormality. Alvarez Self MD DJM/TL , 09:53 AM , 10:22 AM
--- NOTE | 2018-04-27 12:17 | ECHRPT ---
Indication: SEPSIS CONCLUSIONS The left ventricular systolic function is severely reduced with an estimated ejection fraction in th e range of 30-35%. Normal left ventricular size. Wall thickness is normal. No regional wall motion abnormalities are present. Trace mitral valve regurgitation. Aortic valve sclerosis is present. There is trace tricuspid valve regurgitation. The estimated pulmonary arterial pressure is 26 mmHg. BP: 82 / 52 HR: 62 Rhythm: Sinus MEASUREMENTS (Male / Female) Normal Values Technical Quality:Fair 2D ECHO LV Diastolic Diameter PLAX 4.6 cm 4.2 - 5.9 / 3.9 - 5.3 cm LV Systolic Diameter PLAX 4.1 cm IVS Diastolic Thickness 1.1 cm 0.6 - 1.0 / 0.6 - 0.9 cm LVPW Diastolic Thickness 1.1 cm 0.6 - 1.0 / 0.6 - 0.9 cm LV Relative Wall Thickness 0.5 LVOT Diameter 1.7 cm LA Systolic Diameter LX 4.0 cm 3.0 - 4.0 / 2.7 - 3.8 cm LV Ejection Fraction MOD 4C 34.9 % LV Cardiac Index MOD 4C 2007.2 cm/minm LV Ejection Fraction 4C AL 38.0 % LV Cardiac Index 4C AL 2274.4 cm/minm M-MODE Aortic Root Diameter MM 2.0 cm LA Systolic Diameter MM 4.0 cm LA Ao Ratio MM 2.0 AV Cusp Separation MM 1.9 cm DOPPLER AV Peak Velocity 114.0 cm/s AV Peak Gradient 5.2 mmHg LVOT Peak Velocity 80.9 cm/s LVOT Peak Gradient 2.6 mmHg AV Area Cont Eq pk 1.6 cm MV Area PHT 5.8 cm Mitral E Point Velocity 107.0 cm/s Mitral A Point Velocity 37.0 cm/s Mitral E to A Ratio 2.9 LV E' Lateral Velocity 8.3 cm/s Mitral E to LV E' Lateral Ratio 12.9 LV E' Septal Velocity 6.2 cm/s Mitral E to LV E' Septal Ratio 17.1 TR Peak Velocity 200.0 cm/s TR Peak Gradient 16.0 mmHg Right Atrial Pressure 10.0 mmHg Pulmonary Artery Systolic Pressu 26.0 mmHg Right Ventricular Systolic Press 26.0 mmHg PV Peak Velocity 70.6 cm/s PV Peak Gradient 2.0 mmHg FINDINGS LEFT VENTRICLE The left ventricular systolic function is severely reduced with an estimated ejection fraction in th e range of 30-35%. Normal left ventricular size. Wall thickness is normal. No regional wall motion abnormalities are present. RIGHT VENTRICLE Normal right ventricular size and systolic function. LEFT ATRIUM The left atrial size is normal. RIGHT ATRIUM The right atrial size is normal. ATRIAL SEPTUM Normal atrial septal thickness without atrial level shunting by limited color doppler interrogation. AORTA The aortic root and proximal ascending aorta are normal in size on limited imaging. MITRAL VALVE Structurally normal mitral valve. Trace mitral valve regurgitation. AORTIC VALVE Trileaflet aortic valve. Aortic valve sclerosis is present. TRICUSPID VALVE Structurally normal tricuspid valve. There is trace tricuspid valve regurgitation. The estimated pulmonary arterial pressure is 26 mmHg. PULMONARY VALVE No pulmonary valve regurgitation or stenosis. VESSELS The inferior vena cava is normal in size. PERICARDIUM No pericardial effusion. David Cannon MD, FACC (Electronically Signed) Final Date:27 Apr 2018 12:16
[2018-04-27] MEDS: HEPARIN SODIUM - SQ 10,000 UNITS/ML VIAL SQ SCH (12:43)
--- NOTE | 2018-04-27 12:44 | EKG ---
Date Performed: 04/26/2018 Time Performed: 10:47:26 PTAGE: 48 years EKG: SINUS TACHYCARDIA NONSPECIFIC T-WAVE ABNORMALITY ABNORMAL RHYTHM ECG NO PREVIOUS TRACING DOCTOR: El Pantoja Interpretating Date/Time 04/27/2018 12:42:18
--- NOTE | 2018-04-27 12:45 | EKG ---
Date Performed: 04/26/2018 Time Performed: 11:06:35 PTAGE: 48 years EKG: SINUS TACHYCARDIA WITH OCCASIONAL PACs BORDERLINE ATRIAL ABNORMALITY POOR INITIAL ANTERIOR FORCES WHICH MAY BE NORMAL VARIANT BORDERLINE LEFT AXIS DEVIATION NONSPECIFIC T-WAVE CHANGE ABNORMAL ECG Compared to PREVIOUS TRACING , PACs are new, otherwise no change. PREVIOUS TRACIN04/26/2018 10.47 DOCTOR: El Pantoja Interpretating Date/Time 04/27/2018 12:45:06
[2018-04-27 13:26] LABS: HEMOGLOBIN A1C 5.4 % (4.3-6.0)
[2018-04-27] MEDS: AZITHROMYCIN INJ 500 MG in SODIUM CHLOR 0.9% 250 ML INJ 250 ML IV SCH (15:00)
[2018-04-28] VITALS (33 sets, daily range): BP systolic 83–168; BP diastolic 57–118; PULSE 89–133; RESP 16–64; TEMP 98–99.5; O2SAT 92–100
[2018-04-28] MEDS: HEPARIN SODIUM - SQ 10,000 UNITS/ML VIAL SQ SCH ×2 (00:29→12:55)
[2018-04-28] MEDS: PIPERACIL-TAZO 4.5 GM PREMIX 100 ML IV SCH ×4 (00:29→16:26)
[2018-04-28 04:22] LABS: AUTOMATED NEUTROPHIL # 6.5 TH/MM3 (1.8-7.7); BASOPHIL % 0.3 % (0.0-2.0); EOSINOPHIL % 0.3 % (0.0-4.0); HEMATOCRIT 28.2 % (35.0-46.0); HEMOGLOBIN 9.6 GM/DL (11.6-15.3); LYMPH % 9.9 % (9.0-44.0); LYMPHOCYTE # 0.8 TH/MM3 (1.0-4.8); MEAN CELL VOLUME 91.8 FL (80.0-100.0); MEAN CORPUSCULAR HEMOGLOBIN 31.2 PG (27.0-34.0); MEAN CORPUSCULAR HGB CONC 33.9 % (32.0-36.0); MEAN PLATELET VOLUME 8.8 FL (7.0-11.0); MONO % 4.1 % (0.0-8.0); MONOCYTE # 0.3 TH/MM3 (0-0.9); NEUT % 85.4 % (16.0-70.0); PLATELET COUNT 118 TH/MM3 (150-450); RED BLOOD COUNT 3.07 MIL/MM3 (4.00-5.30); RED CELL DISTRIBUTION WIDTH 14.8 % (11.6-17.2); WHITE BLOOD COUNT 7.6 TH/MM3 (4.0-11.0)
[2018-04-28] MEDS: RESP: ALBUTEROL 2.5 MG/IPRATROPIUM 0.5 MG NEB (SCH) INH ×4 (04:45→20:46)
[2018-04-28 04:49] LABS: BICARBONATE 22.6 MEQ/L (21.0-32.0); CALCIUM 7.2 MG/DL (8.5-10.1); CREATININE 0.81 MG/DL (0.50-1.00)
[2018-04-28] MEDS: SODIUM CHLOR 0.9% 1000 ML INJ 1,000 ML IV SCH (05:13)
[2018-04-28 05:50] LABS: CALCIUM-PROTEIN CORRECTED 8.1 MG/DL (8.5-10.1); TOTAL PROTEIN 5.4 GM/DL (6.4-8.2)
--- NOTE | 2018-04-28 06:24 | RADRPT ---
EXAM DATE: 04/28/2018 6:11 AM EDT AGE/SEX: 48 years / Female INDICATIONS: Shortness of breath, possible pulmonary disease. CLINICAL DATA: This is the patient's subsequent encounter. Patient reports that signs and symptoms h ave been present for 3 days and indicates a pain score of Nonresponsive. MEDICAL/SURGICAL HISTORY: Non-responsive. Non-responsive. COMPARISON: [facility] [place], CHEST SINGLE AP, 04/27/2018. . FINDINGS: There is worsening bilateral parenchymal process most likely worsening pulmonary edema. Slight cardio megaly has not changed. Previously seen ET tube and NG tube have been removed. CONCLUSION: Worsening pulmonary edema. Electronically signed by: Adonay Culver MD 04/28/2018 6:23 AM EDT
[2018-04-28] MEDS: CHLORHEXIDINE 0.12% (ORAL KIT) 15 ML CUP MT SCH ×2 (08:00→19:36)
[2018-04-28] MEDS: DOCUSATE SODIUM 50 MG/SENNA 8.6 MG TAB PO SCH ×2 (08:25→19:36)
[2018-04-28] MEDS: LACTULOSE SYRUP 20 GM/30 ML CUP PO SCH (08:25)
[2018-04-28] MEDS: FAMOTIDINE 20 MG/2 ML VIAL IV PUSH SCH ×2 (08:25→20:05)
[2018-04-28] MEDS: SODIUM CHLORIDE 0.9% FLUSH 10 ML FLUSH IV FLUSH SCH ×3 (08:26→19:36)
[2018-04-28] MEDS ORDERED: FUROSEMIDE 40 MG/4 ML VIAL IV PUSH ONE (08:45)
[2018-04-28] MEDS ORDERED: CALCIUM GLUCONATE INJ 2 GM in SODIUM CHLORIDE 0.9% INJ 100 ML IV ONE (08:45)
--- NOTE | 2018-04-28 08:57 | HHI.CCPN ---
Subjective Remarks/Hospital Course This is a 48yo female with unknown PMH that was transferred to [facility] ED for possible overdose. Per report the patient was in a hotel and pt was scheduled to check out of the hotel, and upon evaluation EVAC was called . The patient was found pt on the floor, mumbling and not responding appropriately. Per report there was drug paraphernalia on the floor in the hotel around the patient. The patient was noted to be in respiratory distress and O2 sat was in the 70s on room air. Pt placed on 100% nonrebreather mask and the O2 saturation increased to the 80s. In the ED , the patient was moving all extremities but was not oriented or answering questions. Pt was tachypneic with diffuse coarse breath sounds in bilateral lungs. Pt was emergently intubated. Imaging and laboratory studies reveal urine toxicity positive for amphetamines unable to obtain further history. Critical care medicine was consulted Subjective: 04/27: No acute events overnight. Leukocytosis resolved. Patient continues on antibiotics. EEG obtained. patient alert awake oriented following commands this a.m.. Currently on CPAP trials greater than 2 hours plan for SBT and possible extubation this a.m. 04/28: No acute events overnight . The patient was successfully extubated yesterday afternoon. The patient was placed on a clear liquid diet will advance to regular diet . Discussion with family patient has had multiple attempts at suicide. Psychiatry consulted, await recommendations. Objective Vital Signs Date Time Temp Pulse Resp B/P (MAP) Pulse Ox O2 Delivery O2 Flow Rate FiO2 04/28/18 06:00 99 04/28/18 04:00 98.4 16 106/65 (79) 96 04/27/18 22:13 Nasal Cannula 3.00 04/27/18 12:00 40 Intake and Output 04/28/18 04/28/18 04/29/18 08:00 16:00 00:00 Intake Total 1707 ml Output Total 650 ml Balance 1057 ml Result Diagram: 04/28/18 0355 04/28/18 0355 Imaging Last Impressions Chest X-Ray 04/28/18 0600 Signed Impressions: CONCLUSION: Worsening pulmonary edema. Head CT 04/26/18 1056 Signed Impressions: CONCLUSION: 1. Unremarkable CT scan of the brain. Last Impressions Chest X-Ray 04/27/18 0000 Signed Impressions: CONCLUSION: Slightly improved bilateral airspace opacities. Head CT 04/26/181055 Signed Impressions: CONCLUSION: 1. Unremarkable CT scan of the brain. Last Impressions Head CT 04/26/181055 Signed Impressions: CONCLUSION: 1. Unremarkable CT scan of the brain. Chest X-Ray 04/26/181055 Signed Impressions: CONCLUSION: 1. Diffuse interstitial and airspace disease is seen predominantly throughout the right lung. 2. The endotracheal tube and NG tube appear to be in good position. 3. No evidence of pneumothorax. Objective Remarks GENERAL: This is a well-developed well-nourished female alert and oriented responding appropriately SKIN: Warm and dry. HEAD: Atraumatic. Normocephalic. EYES: Pupils equal and round. No scleral icterus. No injection or drainage. ENT: No nasal bleeding or discharge. Mucous membranes pink and moist. NECK: Trachea midline. No JVD. CARDIOVASCULAR: Normal rate, regular rhythm. RESPIRATORY: No accessory muscle use. Breath sounds equal bilaterally. GASTROINTESTINAL: Abdomen soft, non-tender, nondistended. No guarding. MUSCULOSKELETAL: Extremities without clubbing, cyanosis, or edema. No obvious deformities. NEUROLOGICAL: GCS15. No gross focal/sensory deficits. Following commands x 4 extremities. A/P Problem List: (1) Rhabdomyolysis ICD Code: M62.82 - Rhabdomyolysis Status: Acute (2) DAVIE (acute kidney injury) ICD Code: N17.9 - Acute kidney failure, unspecified Status: Acute (3) Hyperammonemia ICD Code: E72.20 - Disorder of urea cycle metabolism, unspecified Status: Acute (4) Substance abuse ICD Code: F19.10 - Other psychoactive substance abuse, uncomplicated Status: Acute (5) Acute respiratory failure with hypoxia and hypercapnia ICD Code: J96.01 - Acute respiratory failure with hypoxia; J96.02 - Acute respiratory failure with hypercapnia Status: Acute Assessment and Plan Assessment Plan by systems: Neurologic: Encephalopathy Substance use disorder Agitation/anxiety 04/26-CT brain-negative Monitor for signs of withdrawal Ativan 1 mg every 4 hours as needed for anxiety and agitation 04/27 EEG-results pending Obtain psychiatry consult TSH level-0.7 WNL cortisol level-60.0 Respiratory: Acute hypoxic and hypercapnic respiratory failure Probable aspiration Maintain O2 saturation greater than 92% 04/26-intubated for airway protection 04/27-extubated 04/28 pulmonary edema-Lasix 40 mg IV 1 dose Duo nebs every 6 hours scheduled and every 2 hours as needed Cardiovascular: Sinus tachycardia-resolved Cardiomyopathy Initial troponin 0 0.02, continue to monitor Maintain MAP greater than 65mmHg 04/27 echo -EF 3035%, trace TR, no RWMA Renal: Maintain Banegas -- Strict I/Os FEN/GI: Rhabdomyolysis AK I Hyperammonemia 04/28-IV fluids discontinued Basic regular diet initiated Trend CK MB, and creatinine kinase, now downtrending Creatinine 1.4, continue to trend Lactulose 30ml/day Trend ammonia level Heme/ID: Leukocytosis Bandemia F/U blood , sputum cultures Monitor CBC Continue azithromycin and Zosyn Bands 27% Endocrine: Glucose monitoring per ICU protocol, low-dose regimen -- SSI Prophylaxis: GI Prophylaxis Famotidine twice daily DVT Prophylaxis -- SCDs Heparin SQ every 12 hours Lines: Peripheral IVs 2. Central line if indicated Dispo: Level 2 [facility]. [facility] Physician Taty Zamudio MD April 28, 2018 08:57
[2018-04-28] MEDS: ARTIFICIAL TEARS OPTH SOLN 15 ML BTL EACH EYE SCH ×3 (09:00→18:00)
[2018-04-28] MEDS: LORazepam 2 MG/ML VIAL IV PUSH PRN ×8 (09:11→22:11)
[2018-04-28] MEDS: POTASSIUM CHLORIDE 25 MEQ EFFERVESCENT TAB PO PRN (09:11)
[2018-04-28] MEDS ORDERED: LORazepam 2 MG/ML VIAL IV PUSH PRN (10:45)
[2018-04-28] MEDS ORDERED: LORazepam 1 MG TAB PO PRN (10:45)
[2018-04-28] MEDS ORDERED: FLUMAZENIL 0.5 MG/5 ML VIAL IV PUSH PRN (10:45)
--- NOTE | 2018-04-28 11:05 | PD.PSY.CON ---
Provisional Diagnosis Admission Date April 26, 2018 at 12:02 [place] I. 1. Adjustment disorder with mixed disturbance of emotions and conduct Rule out some degree of underlying delirium 2. Amphetamine abuse [place] II. Deferred History of Present Illness Service Psychiatry Consult Requested By Dr. Hayden Reason for Consult Attempted suicide Primary Care Physician Unknown HPI Ms. Mckeon is a 48-year-old female of uncertain past psychiatric history who presented to the emergency department initially on 04/26 by EVAC after she was found with altered mental status at a hotel surrounded by drug paraphernalia. She has been admitted to the [facility] for further management of her altered mental status. Reviewing the electronic medical record, I note this is patient's first visit to [place]. Patient seen and examined with nurse. Chart reviewed. Case discussed with nursing staff and with Dr. Hayden. Dr. Hayden reports that patient's was on the unit yesterday and relayed that he had concerns that presenting AMS was related to suicidal overdose. Dr. Hayden further reports that patient admitted to overdose. Nurse reports patient's behavior has been oppositional and negativistic, but there are no reports of aggression or assaultiveness. On my examination today, the patient presents as emotionally dysregulated. Affect is quite labile. She speaks clearly at one moment and mumbles incoherently at another. In context, this rapid change in communication style seems behavioral and volitional, although this cannot be concluded with certainty. In any event , patient is a fairly poor historian. She does admit to overdose on OTC hypnotics, but she cannot say why she took these. She is noncommittal regarding SI or HI now. She denies any audiovisual hallucinations. Psychiatric interview is limited as patient is a poor historian. Past psychiatric history: Diagnosis unclear. Unclear if patient is currently under care of psychiatrist. She denies a history of psychiatric admissions. When asked about a history of suicide attempts she says "not really" and does not provide any further details when asked. Family history: Patient reports that her mother may have some sort of mental illness. Chemical dependency history: Patient admits to recent abuse of methamphetamine. Social history: Patient is homeless. She is . She tells me that she has no children but told the nurse earlier that she had 6 children. History is quite limited as patient is a poor historian. Patient does provide 2 numbers for possible collateral sources: Hua () [phone]. I called this number and there was no answer, nor was I given an opportunity to leave a voicemail. Ed (relation unclear) [phone]. This was a wrong number. Review of Systems ROS Limitations: Uncooperative, Poor Historian Except as stated in HPI: all other systems reviewed are Neg Past Family Social History Coded Allergies: No Allergy Information Available (Unverified , 04/26/18) Past Medical History See EMR Unable to Obtain Active Prescriptions or Reported Meds Current Medications Medications (Trade) Dose Ordered Sig/Alfa Route Start Time Stop Time Status Last Admin (NS Flush) 2 ml UNSCH PRN IV FLUSH 04/26/18 12:00 (NS Flush) 2 ml BID IV FLUSH 04/26/18 21:00 04/28/18 09:12 (Tylenol) 650 mg Q6H PRN PO 04/26/18 12:00 (Tears Naturale Opth Soln) 1 drop TID EACH EYE 04/26/18 13:00 (Duoneb Neb) 1 ampule Q6HR NEB INH 04/26/18 16:00 04/28/18 04:45 (Duoneb Neb) 1 ampule Q2HR NEB PRN INH 04/26/18 12:00 (Heparin Inj) 5,000 units Q12H SQ 04/26/18 12:00 04/28/18 00:29 ([facility] [place] Nursing Information) 1 Q361D XX 04/26/18 12:00 (Chlorhexidine 2% Cloth) 3 pack Taper DAILY@04 TOP 04/27/18 04:00 04/23/19 03:59 04/27/18 03:14 (Chlorhexidine 2% Cloth) 3 pack UNSCH PRN TOP 04/26/18 12:00 (Evelin-Colace) 1 tab BID PO 04/26/18 21:00 04/28/18 08:25 (Milk Of Magnesia Liq) 30 ml Q12H PRN PO 04/26/18 12:00 (Senokot) 17.2 mg Q12H PRN PO 04/26/18 12:00 (Dulcolax Supp) 10 mg DAILY PRN RECTAL 04/26/18 12:00 (Lactulose Liq) 30 ml DAILY PRN PO 04/26/18 12:00 Piperacillin Sod/ Tazobactam Sod 100 ml @ 200 mls/hr Q6H IV 04/26/18 12:00 04/28/18 06:36 Azithromycin 500 mg/Sodium Chloride 250 ml @ 250 mls/hr Q24H IV 04/26/18 12:00 04/27/18 15:00 Potassium Chloride 100 ml @ 50 mls/hr Q2H PRN IV 04/26/18 12:00 Potassium Chloride 100 ml @ 50 mls/hr Q2H PRN IV 04/26/18 12:00 (K-Lyte Cl Eff) 50 meq UNSCH PRN PO 04/26/18 12:00 04/28/18 09:11 Potassium Chloride 100 ml @ 25 mls/hr UNSCH PRN IV 04/26/18 12:00 Potassium Chloride 100 ml @ 50 mls/hr Q2H PRN IV 04/26/18 12:00 Magnesium Sulfate 4 gm/Sodium Chloride 100 ml @ 50 mls/hr UNSCH PRN IV 04/26/18 12:00 (Mag-Ox) 800 mg UNSCH PRN PO 04/26/18 12:00 Magnesium Sulfate 2 gm/Sodium Chloride 100 ml @ 50 mls/hr UNSCH PRN IV 04/26/18 12:00 (K-Phos) 2,000 mg Q4H PRN PO 04/26/18 12:00 Sodium Phosphate 30 mmol/Sodium Chloride 250 ml @ 42 mls/hr UNSCH PRN IV 04/26/18 12:00 04/26/18 16:34 (K-Phos) 2,000 mg UNSCH PRN PO/TUBE 04/26/18 12:00 Potassium Phosphate 30 mmol/ Sodium Chloride 260 ml @ 42 mls/hr UNSCH PRN IV 04/26/18 12:00 (Peridex 0.12% Liq) 15 ml BID@08,20 MT 04/26/18 20:00 04/26/18 20:42 (Pepcid Inj) 10 mg Q12HR IV PUSH 04/26/18 21:00 04/28/18 08:25 (Lactulose Liq) 30 ml DAILY PO 04/26/18 16:00 04/28/18 08:25 (Ativan Inj) 1 mg Q4H PRN IV PUSH 04/28/18 09:00 04/28/18 09:11 (NS Flush) 2 ml BID IV FLUSH 04/28/18 21:00 Multivitamins 10 ml/Folic Acid 1 mg/Sodium Chloride 510.2 ml @ 125 mls/hr Q24H IV 04/28/18 12:00 05/03/18 11:59 Thiamine HCl 100 mg/Sodium Chloride 101 ml @ 100 mls/hr Q24H IV 04/28/18 12:00 05/01/18 11:59 (Romazicon Inj) 0.2 mg Q1M PRN IV PUSH 04/28/18 10:45 (Ativan) 1 mg Q4H PRN PO 04/28/18 10:45 (Ativan Inj) 1 mg Q4H PRN IV PUSH 04/28/18 10:45 (Ativan) 2 mg Q2H PRN PO 04/28/18 10:45 (Ativan Inj) 2 mg Q2H PRN IV PUSH 04/28/18 10:45 (Ativan Inj) 2 mg Q1H PRN IV PUSH 04/28/18 10:45 (Ativan Inj) 2 mg Q15M PRN IV PUSH 04/28/18 10:45 Patient's Strengths (min. 2) In a monitored setting. Retains some verbal fluency. Physical Exam Physical exam completed by primary team. On my examination today, the patient appears to be in no acute physical distress. No motor abnormalities noted. No signs of intoxication or withdrawal noted. Labs and vitals reviewed: Vital Signs Vital Signs Date Time Temp Pulse Resp B/P (MAP) Pulse Ox O2 Delivery O2 Flow Rate FiO2 04/28/18 10:40 97 3.00 04/28/18 06:00 99 04/28/18 04:00 98.4 16 106/65 (79) 04/27/18 22:13 Nasal Cannula 04/27/18 12:00 40 I/O 04/28/18 04/28/18 04/29/18 08:00 16:00 00:00 Intake Total 1707 ml Output Total 650 ml Balance 1057 ml Lab Results Test 04/28/18 03:55 White Blood Count 7.6 TH/MM3 Red Blood Count 3.07 MIL/MM3 Hemoglobin 9.6 GM/DL Hematocrit 28.2 % Mean Corpuscular Volume 91.8 FL Mean Corpuscular Hemoglobin 31.2 PG Mean Corpuscular Hemoglobin Concent 33.9 % Red Cell Distribution Width 14.8 % Platelet Count 118 TH/MM3 Mean Platelet Volume 8.8 FL Neutrophils (%) (Auto) 85.4 % Lymphocytes (%) (Auto) 9.9 % Monocytes (%) (Auto) 4.1 % Eosinophils (%) (Auto) 0.3 % Basophils (%) (Auto) 0.3 % Neutrophils # (Auto) 6.5 TH/MM3 Lymphocytes # (Auto) 0.8 TH/MM3 Monocytes # (Auto) 0.3 TH/MM3 Eosinophils # (Auto) 0.0 TH/MM3 Basophils # (Auto) 0.0 TH/MM3 CBC Comment DIFF FINAL Differential Comment Blood Urea Nitrogen 11 MG/DL Creatinine 0.81 MG/DL Random Glucose 81 MG/DL Total Protein 5.4 GM/DL Calcium Level 7.2 MG/DL Sodium Level 143 MEQ/L Potassium Level 3.4 MEQ/L Chloride Level 112 MEQ/L Carbon Dioxide Level 22.6 MEQ/L Anion Gap 8 MEQ/L Estimat Glomerular Filtration Rate 75 ML/MIN Protein Corrected Calcium 8.1 MG/DL Ammonia 16 MCMOL/L Total Creatine Kinase 552 U/L Creatine Kinase MB 2.7 NG/ML Creatine Kinase MB % 0.5 % Date/Time Source Procedure Growth Status 04/26/18 11:50 Blood Peripheral Aerobic Blood Culture - Preliminary NO GROWTH IN 1 DAY Resulted 04/26/18 11:50 Blood Peripheral Anaerobic Blood Culture - Preliminary NO GROWTH IN 1 DAY Resulted 04/26/18 16:40 Sputum Endotracheal Gram Stain - Final Complete 04/26/18 16:40 Sputum Endotracheal Sputum Culture - Final NO GROWTH IN 48 HOURS. Complete Last Impressions Chest X-Ray 04/28/18 0600 Signed Impressions: CONCLUSION: Worsening pulmonary edema. Head CT 04/26/18 1056 Signed Impressions: CONCLUSION: 1. Unremarkable CT scan of the brain. Discussed chest x-ray findings of worsening pulmonary edema with Dr. Hayden. She reports that she has diuresed the patient and does not have concerns for patient's respiratory status. Mental Status Examination Appearance: Disheveled Consciousness: Alert Orientation: Person (At least. Patient uncooperative with my attempts at mental status testing.) Motor Activity: Other (Motor exam as above) Speech: Other (Alternates between inappropriately loud and mumbling) Language: Adequate Fund of Knowledge: Inadequate Attention and Concentration: Easily Distracted Memory: Impaired Mood: Other (Dysphoric) Affect: Irritable, Labile Thought Process & Associations: Tangential Thought Content: Appropriate Hallucination Type: None Delusion Type: None Insight: Poor Judgment: Poor Mental Status Exam Remarks Patient noncommittal regarding SI/HI. Assessment & Plan Problem List: (1) Adjustment disorder with mixed disturbance of emotions and conduct ICD Codes: F43.25 - Adjustment disorder with mixed disturbance of emotions and conduct (2) Amphetamine abuse ICD Codes: F15.10 - Other stimulant abuse, uncomplicated Assessment & Plan 48-year-old female with unclear past psychiatric history who is presently admitted to the [facility] following episode of altered mental status. Patient admits to ingestion of [id number] hypnotics, intent unclear. Primary team attending reports to me that patient's presented to the unit and had concern for suicidal overdose. Collateral otherwise is wanting. Patient is presently fairly emotionally dysregulated and a poor historian. Looking at the totality of the case, I think it is most prudent at this juncture to initiate a [place] act with plans for transfer to inpatient psychiatric unit once medically clear or to medical psychiatric unit once appropriate for that unit. I have placed BA on chart. I would continue to monitor the patient closely while in the [facility] and would send to the regular nursing floor with a sitter for safety. Defer initiation of psychotropics to inpatient psychiatric team. Case d/w Dr. Hayden and RN. I have also apprised psych cupola charger of possible admission. Thank you very much for this consultation. Please call or page [phone] during daylight hours with questions. Alvarez Valenzuela MD April 28, 2018 11:05
[2018-04-28] MEDS: MULTIVITAMIN INJ 10 ML, FOLIC ACID INJ 1 MG in SODIUM CHLORID 0.9% 500 ML INJ 500 ML IV SCH (11:20)
[2018-04-28] MEDS: THIAMINE INJ 100 MG in SODIUM CHLORIDE 0.9% INJ 100 ML IV SCH (11:21)
[2018-04-28] MEDS: AZITHROMYCIN INJ 500 MG in SODIUM CHLOR 0.9% 250 ML INJ 250 ML IV SCH (12:56)
--- NOTE | 2018-04-28 13:25 | MG ---
cc: Alvarez Self MD EEG #[id number] INDICATION: Found on floor of a hotel. Lactulose, antibiotics. DESCRIPTION: Recording shows diffuse alpha rhythms. The patient is in stage II sleep throughout the recording. Photic stimulation was performed without significant posterior driving. No hemisphere asymmetries are noted. No epileptiform or seizure activity is seen. IMPRESSION: Normal stage II sleep electroencephalogram. No evidence of a focal or diffuse abnormality. Alvarez Self MD DJM/TL , 01:15 PM , 01:24 PM
[2018-04-28] MEDS: LORazepam 2 MG TAB PO PRN ×2 (15:13→17:11)
[2018-04-28] MEDS: POTASSIUM CHLOR 20 MEQ PREMIX 100 ML IV PRN ×2 (20:05→20:06)
[2018-04-29] VITALS (20 sets, daily range): BP systolic 121–152; BP diastolic 76–104; PULSE 90–121; RESP 35–58; TEMP 98.5–99.7; O2SAT 95–100
[2018-04-29] MEDS: PIPERACIL-TAZO 4.5 GM PREMIX 100 ML IV SCH ×3 (00:13→10:37)
[2018-04-29] MEDS: HEPARIN SODIUM - SQ 10,000 UNITS/ML VIAL SQ SCH ×2 (00:13→10:39)
[2018-04-29] MEDS: LORazepam 2 MG/ML VIAL IV PUSH PRN ×9 (00:46→17:13)
[2018-04-29] MEDS: CHLORHEXIDINE GLUCONATE 2 % 1 PACK (2 CLOTHS) TOP SCH ×2 (03:50→21:00)
[2018-04-29 03:58] LABS: AUTOMATED NEUTROPHIL # 8.6 TH/MM3 (1.8-7.7); BASOPHIL % 0.3 % (0.0-2.0); EOSINOPHIL % 0.3 % (0.0-4.0); HEMATOCRIT 31.3 % (35.0-46.0); HEMOGLOBIN 10.7 GM/DL (11.6-15.3); LYMPH % 8.5 % (9.0-44.0); LYMPHOCYTE # 0.8 TH/MM3 (1.0-4.8); MEAN CELL VOLUME 91.4 FL (80.0-100.0); MEAN CORPUSCULAR HEMOGLOBIN 31.3 PG (27.0-34.0); MEAN CORPUSCULAR HGB CONC 34.2 % (32.0-36.0); MONO % 4.2 % (0.0-8.0); MONOCYTE # 0.4 TH/MM3 (0-0.9); NEUT % 86.7 % (16.0-70.0); PLATELET COUNT 186 TH/MM3 (150-450); RED BLOOD COUNT 3.43 MIL/MM3 (4.00-5.30); RED CELL DISTRIBUTION WIDTH 14.6 % (11.6-17.2); WHITE BLOOD COUNT 9.9 TH/MM3 (4.0-11.0)
[2018-04-29] MEDS: RESP: ALBUTEROL 2.5 MG/IPRATROPIUM 0.5 MG NEB (SCH) INH ×4 (04:00→22:01)
[2018-04-29 04:31] LABS: BICARBONATE 25.9 MEQ/L (21.0-32.0); CALCIUM 8.5 MG/DL (8.5-10.1); CREATININE 0.75 MG/DL (0.50-1.00)
[2018-04-29] MEDS: RESP: ALBUTEROL 2.5 MG/IPRATROPIUM 0.5 MG NEB (PRN) INH (05:06)
[2018-04-29] MEDS: CHLORHEXIDINE 0.12% (ORAL KIT) 15 ML CUP MT SCH ×2 (08:00→19:22)
[2018-04-29] MEDS: DOCUSATE SODIUM 50 MG/SENNA 8.6 MG TAB PO SCH ×2 (09:00→19:22)
[2018-04-29] MEDS: ARTIFICIAL TEARS OPTH SOLN 15 ML BTL EACH EYE SCH ×3 (09:00→18:00)
[2018-04-29] MEDS: LACTULOSE SYRUP 20 GM/30 ML CUP PO SCH (09:00)
[2018-04-29] MEDS: SODIUM CHLORIDE 0.9% FLUSH 10 ML FLUSH IV FLUSH SCH ×4 (09:52→19:22)
[2018-04-29] MEDS: FAMOTIDINE 20 MG/2 ML VIAL IV PUSH SCH ×2 (09:53→20:17)
[2018-04-29] MEDS: AZITHROMYCIN INJ 500 MG in SODIUM CHLOR 0.9% 250 ML INJ 250 ML IV SCH (10:37)
[2018-04-29] MEDS: MULTIVITAMIN INJ 10 ML, FOLIC ACID INJ 1 MG in SODIUM CHLORID 0.9% 500 ML INJ 500 ML IV SCH (10:38)
[2018-04-29] MEDS: THIAMINE INJ 100 MG in SODIUM CHLORIDE 0.9% INJ 100 ML IV SCH (12:14)
[2018-04-29] MEDS ORDERED: SODIUM BICARBONATE 8.4% INJ 100 MEQ in DEXTROSE 5% IN WATE 1000ML INJ 1,000 ML IV SCH ×2 (16:00)
--- NOTE | 2018-04-29 16:12 | HHI.PR ---
Subjective Remarks This is a 48yo female with unknown PMH that was transferred to [facility] ED for possible overdose. Per report the patient was in a hotel and pt was scheduled to check out of the hotel, and upon evaluation EVAC was called . The patient was found pt on the floor, mumbling and not responding appropriately. Per report there was drug paraphernalia on the floor in the hotel around the patient. The patient was noted to be in respiratory distress and O2 sat was in the 70s on room air. Pt placed on 100% nonrebreather mask and the O2 saturation increased to the 80s. In the ED , the patient was moving all extremities but was not oriented or answering questions. Pt was tachypneic with diffuse coarse breath sounds in bilateral lungs. Pt was emergently intubated. Imaging and laboratory studies reveal urine toxicity positive for amphetamines unable to obtain further history. Critical care medicine was consulted Subjective: 04/27: No acute events overnight. Leukocytosis resolved. Patient continues on antibiotics. EEG obtained. patient alert awake oriented following commands this a.m.. Currently on CPAP trials greater than 2 hours plan for SBT and possible extubation this a.m. 04/28: No acute events overnight . The patient was successfully extubated yesterday afternoon. The patient was placed on a clear liquid diet will advance to regular diet . Discussion with family patient has had multiple attempts at suicide. Psychiatry consulted, await recommendations. 04/29. Patient wakes up for exam, appears to tell me to get out of the room. Denies any pain. Nursing reports that patient has been violent, has tried to kick the nurse. Objective Vital Signs Date Time Temp Pulse Resp B/P (MAP) Pulse Ox O2 Delivery O2 Flow Rate FiO2 04/29/18 12:00 115 51 147/93 (111) 95 04/29/18 12:00 115 04/29/18 11:00 101 04/29/18 10:00 96 04/29/18 09:00 90 04/29/18 08:00 98.7 90 41 121/76 (91) 100 04/29/18 08:00 90 04/29/18 07:00 100 Nasal Cannula 3.00 04/29/18 07:00 91 04/29/18 06:00 107 04/29/18 05:06 100 Nasal Cannula 3.00 04/29/18 04:00 99.7 108 37 152/104 (120) 95 04/29/18 04:00 108 04/29/18 02:00 108 04/29/18 00:00 94 04/29/18 00:00 99.0 94 35 144/85 (104) 99 04/28/18 22:00 123 04/28/18 20:46 100 Nasal Cannula 3.00 04/28/18 20:00 99.5 89 41 123/70 (87) 100 04/28/18 20:00 89 04/28/18 19:13 97 Nasal Cannula 3.00 04/28/18 17:06 125 04/28/18 17:00 128 04/28/18 16:52 99 04/28/18 16:30 115 I/O 04/28/18 04/28/18 04/28/18 04/29/18 04/29/18 04/29/18 07:00 15:00 23:00 07:00 15:00 23:00 Intake Total 1707 ml 200 ml 1020 ml 450 ml Output Total 650 ml 3200 ml Balance 1057 ml 200 ml -2180 ml 450 ml Intake Oral 250 ml 420 ml 50 ml IV Total 1457 ml 200 ml 600 ml 400 ml Output Urine Total 650 ml 3200 ml # Voids 5 # Bowel Movements 2 Result Diagram: 04/29/18 03404/29/18341 Objective Remarks GENERAL: Patient lying in bed in restraints. Appears comfortable. Sleeping, arousable for exam. SKIN: Warm and dry. HEAD: Normocephalic. EYES: No scleral icterus. No injection or drainage. NECK: Supple, trachea midline. No JVD. CARDIOVASCULAR: Regular rate and rhythm without murmurs, gallops, or rubs. RESPIRATORY: Breath sounds equal bilaterally. No accessory muscle use. GASTROINTESTINAL: Abdomen soft, non-tender, nondistended. MUSCULOSKELETAL: No cyanosis, or edema. BACK: Nontender without obvious deformity. No CVA tenderness. A/P Assessment and Plan Plan by systems: Neurologic: //Encephalopathy //Substance use disorder //Agitation/anxiety 04/26-CT brain-negative Monitor for signs of withdrawal Ativan 1 mg every 4 hours as needed for anxiety and agitation 04/27 EEG-stage II sleep normal. Obtain psychiatry consult TSH level-0.7 WNL cortisol level-60.0 = Continue CIWA protocol. Psychiatry following. appreciate assistance. Respiratory: //Acute hypoxic and hypercapnic respiratory failure //Probable aspiration //Maintain O2 saturation greater than 92% 04/26-intubated for airway protection 04/27-extubated 04/28 pulmonary edema-Lasix 40 mg IV 1 dose Duo nebs every 6 hours scheduled and every 2 hours as needed = 04/28 with bilateral pulmonary infiltrates.. ABG reviewed, appears acceptable , however patient breathing 40 times a minute. Will check BNP. Check d-dimer. Cardiovascular: //Sinus tachycardia. //Cardiomyopathy Initial troponin 0 0.02, continue to monitor Maintain MAP greater than 65mmHg 04/27 echo -EF 30-35%, trace TR, no RWMA = Consult cardiology. Renal: //Kalemia. Replaced and monitor FEN/GI: //Rhabdomyolysis ///AK I //Hyperammonemia Basic regular diet initiated Trend CK MB, and creatinine kinase, now downtrending Creatinine 1.4, continue to trend = Ammonia mildly elevated on admission. Lactulose 30ml/day =Start bicarb for rhabdomyolysis. Pending BNP Heme/ID: //Leukocytosis //Bandemia F/U blood , sputum cultures Monitor CBC Continue azithromycin and Zosyn = Status is improved. Still with bilateral infiltrates. Likely had aspiration event in the hotel room. Continue antibiotics for aspiration. //Prophylaxis: //GI Prophylaxis=Famotidine twice daily //DVT Prophylaxis:-- SCDs, Heparin SQ every 12 hours Discharge Planning Pending improvement. Patient is self-pay. Appreciate case management assistance. Jairo Philippe MD April 29, 2018 16:12
[2018-04-29] MEDS: POTASSIUM CHLOR 10 MEQ PREMIX 100 ML IV SCH ×2 (18:59→20:17)
[2018-04-29] MEDS: LORazepam 2 MG TAB PO PRN (21:28)
[2018-04-29 21:49] LABS: BILIRUBIN, URINE NEG (NEG); BLOOD, URINE NEG (NEG); GLUCOSE,URINE NEG (NEG); KETONE, URINE 40 mg/dL (NEG); MUCUS URINE FEW /lpf (OCC); NITRITE,URINE NEG (NEG); SQUAMOUS EPITHELIAL CELL URINE 1 /hpf (0-5); URINE COLOR YELLOW (YELLW/STRAW); URINE LEUKOCYTE ESTERASE NEG (NEG)
[2018-04-29] MEDS ORDERED: IOHEXOL 350 MG/ML 10 ML VIAL (for RAD DIAG) IVCONTRAST ONE (22:35)
--- NOTE | 2018-04-29 22:46 | RADRPT ---
EXAM DATE: 04/29/2018 10:39 PM EDT AGE/SEX: 48 years / Female INDICATIONS: Shortness of breath. CLINICAL DATA: This is the patient's initial encounter. Patient reports that signs and symptoms have been present for 3 days and indicates a pain score of Nonresponsive. MEDICAL/SURGICAL HISTORY: None. None. RADIATION DOSE: 10.20 CTDI (mGy) COMPARISON: No prior [place] exams available for comparison. TECHNIQUE: Volumetric scanning was performed using a multi-row detector CT scanner during bolus infu marva of 75 ml Omnipaque 350 (iohexol) nonionic water-soluble contrast as a single exam dose. The anya a was post processed with a variety of visualization algorithms including full volume maximum intensi ty projection and sliding thin slab reformation. Using automated exposure control and adjustment of the mA and/or kV according to patient size, radiation dose was kept as low as reasonably achievable t o obtain optimal diagnostic quality images. FINDINGS: Pulmonary Arteries: No filling defects are seen in the pulmonary arteries out to the subsegmental ve ssels. The left and right pulmonary arteries are normal in diameter. Lung: There is diffuse scattered pulmonary infiltrates throughout both lung garcia. Effusion: Small bilateral effusions. Mediastinum: No evidence of mediastinal or hilar adenopathy. Heart size is mildly enlarged. Other: The axilla is unremarkable. CONCLUSION: 1. No evidence of pulmonary embolism. 2. Diffuse scattered bilateral pulmonary infiltrates. 3. Small bilateral effusions. 4. Cardiomegaly. Electronically signed by: Paco Mora MD 04/29/2018 10:45 PM EDT
[2018-04-30] VITALS (14 sets, daily range): BP systolic 117–190; BP diastolic 64–98; PULSE 79–119; RESP 30–40; TEMP 97.4–98.9; O2SAT 95–100
[2018-04-30] MEDS: PIPERACIL-TAZO 4.5 GM PREMIX 100 ML IV SCH ×5 (00:34→18:42)
[2018-04-30] MEDS: HEPARIN SODIUM - SQ 10,000 UNITS/ML VIAL SQ SCH ×2 (00:34→15:18)
--- NOTE | 2018-04-30 00:55 | MB ---
cc: Veto Mendez DO DATE: 04/29/2018 REASON FOR CONSULTATION: Cardiomyopathy. HISTORY OF PRESENT ILLNESS: Cheryl Mckeon is a 48-year-old female who presented to [facility] Emergency Room for possible overdose. The patient is an unreliable historian, as she is currently not talking and does not appear that she has talked to anyone much. She is also not oriented. Per the report, the patient was in a hotel and was scheduled to check out of the hotel and upon evaluation, EVAC was called. She was found on the floor mumbling and not responding appropriately. Apparently, there was drug paraphernalia on the floor in the hotel around the patient. The patient was in respiratory distress and intubated. Since then, she has been extubated and is currently in 4-point restraints. PAST MEDICAL HISTORY: Unable to obtain due to the patient's current state. PAST SURGICAL HISTORY: Unable to obtain due to the patient's state. ALLERGIES: UNABLE TO OBTAIN DUE TO THE PATIENT'S CURRENT STATE. MEDICATIONS: Unable to obtain secondary to the patient's current state. FAMILY HISTORY: Unable to obtain due to the patient's current state. SOCIAL HISTORY: Unable to obtain due to the patient's current state. She was positive for amphetamines on drug screen. REVIEW OF SYSTEMS: Unable to obtain due to the patient's current state. PHYSICAL EXAMINATION: VITAL SIGNS: Temperature 98.7, heart rate 114, blood pressure 145/100, respirations 35, pulse oximetry 99% on 3 liters. GENERAL: The patient is lying in bed in restraints. She appears overall comfortable, in no acute distress. She is not oriented. When asked questions, she mumbles answers at the most, but in general, nothing is obtained. HEENT: Pupils are equal and round. Head is normocephalic. NECK: Supple. No JVD at 45 degrees. No carotid bruits heard bilaterally. Carotid upstroke is brisk in nature. HEART: Regular rate and rhythm. Positive first and second heart sounds, without any murmurs, gallops or rubs. LUNGS: Clear to auscultation bilaterally, although the patient is not cooperative with exam. ABDOMEN: Soft, nontender, nondistended. No organomegaly noted. EXTREMITIES: Show no clubbing, cyanosis or edema. Femoral pulses intact bilaterally. NEUROLOGIC: The patient appears to be moving all 4 extremities. SKIN: Warm, dry and intact. OSTEOPATHIC: No kyphoscoliosis, lordosis or paraspinal tender points. LABORATORY DATA: Hemoglobin 10.7, hematocrit 31.3, platelets 186. Potassium 3.4, BUN 7, creatinine 0.75. Troponin negative x 2. BNP 956. Electrocardiogram (04/26/2018 at 11:06), sinus tachycardia, occasional PAC, poor R-wave progression, nonspecific ST-T wave changes. IMPRESSION: 1. Amphetamine use/overdose. 2. Acute respiratory failure requiring intubation, with subsequent extubation. 3. Encephalopathy secondary to drug abuse. 4. Sinus tachycardia. 5. Cardiomyopathy with an ejection fraction of 30-35% from unknown cause. 6. Acute kidney injury, resolved. RECOMMENDATIONS: 1. Ms. Mckeon presented as amphetamine use, with acute respiratory failure, requiring intubation. 2. An echocardiogram was done showing an ejection fraction of 30-35%, with no wall motion abnormalities. At this time, this is most likely due to her amphetamine use. 3. She is not a candidate for an ischemic evaluation due to her overall presentation, as well as amphetamine use. Would plan to continue to treat her medically. 4. Most likely would not place her on beta ele therapy due to her amphetamine use and concern for overall total alpha stimulation. 5. We will consider placing her on WILBERT inhibitor therapy for cardiomyopathy. 6. Her biggest amphetamine cessation. Thank you for allowing me to see Cheryl Mckeon. If you have any questions, please do not hesitate to call. DO ELIZABETH Narvaez/NIKKI , 12:15 AM , 12:54 AM
[2018-04-30] MEDS: LORazepam 2 MG/ML VIAL IV PUSH PRN ×2 (01:44→02:23)
[2018-04-30] MEDS: RESP: ALBUTEROL 2.5 MG/IPRATROPIUM 0.5 MG NEB (SCH) INH ×2 (04:34→08:02)
[2018-04-30 05:29] LABS: BASOPHIL % 0.5 % (0.0-2.0); EOSINOPHIL # 0.1 TH/MM3 (0-0.4); EOSINOPHIL % 2.1 % (0.0-4.0); HEMATOCRIT 28.5 % (35.0-46.0); HEMOGLOBIN 9.7 GM/DL (11.6-15.3); LYMPHOCYTE # 0.9 TH/MM3 (1.0-4.8); MEAN CELL VOLUME 91.2 FL (80.0-100.0); MEAN CORPUSCULAR HEMOGLOBIN 31.1 PG (27.0-34.0); MEAN CORPUSCULAR HGB CONC 34.1 % (32.0-36.0); MEAN PLATELET VOLUME 8.8 FL (7.0-11.0); MONO % 6.8 % (0.0-8.0); MONOCYTE # 0.4 TH/MM3 (0-0.9); NEUT % 74.6 % (16.0-70.0); PLATELET COUNT 196 TH/MM3 (150-450); RED BLOOD COUNT 3.12 MIL/MM3 (4.00-5.30); RED CELL DISTRIBUTION WIDTH 14.6 % (11.6-17.2); WHITE BLOOD COUNT 5.4 TH/MM3 (4.0-11.0)
[2018-04-30 05:56] LABS: ALBUMIN 2.2 GM/DL (3.4-5.0); BICARBONATE 28.5 MEQ/L (21.0-32.0); CALCIUM 8.7 MG/DL (8.5-10.1); CREATININE 0.63 MG/DL (0.50-1.00); DIRECT BILIRUBIN ADULT 0.9 MG/DL (0.0-0.2); INDIRECT BILIRUBIN 0.5 MG/DL (0.0-0.8); MAGNESIUM 2.2 MG/DL (1.5-2.5); PHOSPHORUS 1.7 MG/DL (2.5-4.9); TOTAL BILIRUBIN ADULT 1.4 MG/DL (0.2-1.0); TOTAL PROTEIN 6.1 GM/DL (6.4-8.2)
[2018-04-30] MEDS ORDERED: POTASSIUM PHOSPHATE INJ 15 MMOL in SODIUM CHLORIDE 0.9% INJ 150 ML IV ONE (07:15)
[2018-04-30] MEDS: CHLORHEXIDINE 0.12% (ORAL KIT) 15 ML CUP MT SCH ×2 (08:00→20:00)
[2018-04-30] MEDS: ARTIFICIAL TEARS OPTH SOLN 15 ML BTL EACH EYE SCH ×2 (09:00→18:00)
[2018-04-30] MEDS: LACTULOSE SYRUP 20 GM/30 ML CUP PO SCH (09:57)
[2018-04-30] MEDS: FAMOTIDINE 20 MG/2 ML VIAL IV PUSH SCH ×2 (09:58→19:57)
[2018-04-30] MEDS: SODIUM CHLORIDE 0.9% FLUSH 10 ML FLUSH IV FLUSH SCH ×4 (09:58→20:14)
[2018-04-30] MEDS: DOCUSATE SODIUM 50 MG/SENNA 8.6 MG TAB PO SCH ×2 (09:58→19:41)
--- NOTE | 2018-04-30 14:26 | RADRPT ---
EXAM DATE: 04/30/2018 2:18 PM EDT AGE/SEX: 48 years / Female INDICATIONS: Right arm swelling. CLINICAL DATA: This is the patient's initial encounter. Patient reports that signs and symptoms have been present for 1 day and indicates a pain score of Nonresponsive. MEDICAL/SURGICAL HISTORY: . Substance use. Unable to obtain further. . Unable to obtain. COMPARISON: No prior [facility] exams available for comparison. FINDINGS: This study is suboptimal due to patient motion. There is spontaneous flow documented in the brachial, basilic, cephalic, axillary, and subclavian vei ns. The vessels are compressible and augmentation response is documented. No filling defects are se en. The flow is phasic with respiration. Direction of flow in the jugular vein is caudal. CONCLUSION: 1. No evidence of deep venous thrombosis. 2. Mildly suboptimal exam. Electronically signed by: Marcus Mckeon MD 04/30/2018 2:25 PM EDT
[2018-04-30] MEDS: MULTIVITAMIN INJ 10 ML, FOLIC ACID INJ 1 MG in SODIUM CHLORID 0.9% 500 ML INJ 500 ML IV SCH (15:17)
[2018-04-30] MEDS: THIAMINE INJ 100 MG in SODIUM CHLORIDE 0.9% INJ 100 ML IV SCH (15:17)
[2018-04-30] MEDS: AZITHROMYCIN INJ 500 MG in SODIUM CHLOR 0.9% 250 ML INJ 250 ML IV SCH (15:18)
--- NOTE | 2018-04-30 15:20 | PD.CARD.PN ---
Subjective Subjective Remarks No events overnight Still in restraints More talkative today and answering questions No chest pain/SOB Objective Medications Current Medications Medications (Trade) Dose Ordered Sig/Alfa Route Start Time Stop Time Status Last Admin (NS Flush) 2 ml UNSCH PRN IV FLUSH 04/26/18 12:00 (NS Flush) 2 ml BID IV FLUSH 04/26/18 21:00 04/30/18 09:58 (Tylenol) 650 mg Q6H PRN PO 04/26/18 12:00 (Tears Naturale Opth Soln) 1 drop TID EACH EYE 04/26/18 13:00 04/29/18 18:00 (Duoneb Neb) 1 ampule Q6HR NEB INH 04/26/18 16:00 04/30/18 08:02 (Duoneb Neb) 1 ampule Q2HR NEB PRN INH 04/26/18 12:00 04/29/18 05:06 (Heparin Inj) 5,000 units Q12H SQ 04/26/18 12:00 04/30/18 00:34 ([facility] Nursing Information) 1 Q361D XX 04/26/18 12:00 (Chlorhexidine 2% Cloth) 3 pack Taper DAILY@04 TOP 04/27/18 04:00 04/23/19 03:59 04/29/18 21:00 (Chlorhexidine 2% Cloth) 3 pack UNSCH PRN TOP 04/26/18 12:00 (Evelin-Colace) 1 tab BID PO 04/26/18 21:00 04/30/18 09:58 (Milk Of Magnesia Liq) 30 ml Q12H PRN PO 04/26/18 12:00 (Senokot) 17.2 mg Q12H PRN PO 04/26/18 12:00 (Dulcolax Supp) 10 mg DAILY PRN RECTAL 04/26/18 12:00 (Lactulose Liq) 30 ml DAILY PRN PO 04/26/18 12:00 Piperacillin Sod/ Tazobactam Sod 100 ml @ 200 mls/hr Q6H IV 04/26/18 12:00 04/30/18 04:44 Azithromycin 500 mg/Sodium Chloride 250 ml @ 250 mls/hr Q24H IV 04/26/18 12:00 04/29/18 10:37 Potassium Chloride 100 ml @ 50 mls/hr Q2H PRN IV 04/26/18 12:00 Potassium Chloride 100 ml @ 50 mls/hr Q2H PRN IV 04/26/18 12:00 (K-Lyte Cl Eff) 50 meq UNSCH PRN PO 04/26/18 12:00 04/28/18 09:11 Potassium Chloride 100 ml @ 25 mls/hr UNSCH PRN IV 04/26/18 12:00 Potassium Chloride 100 ml @ 50 mls/hr Q2H PRN IV 04/26/18 12:00 04/28/18 20:06 Magnesium Sulfate 4 gm/Sodium Chloride 100 ml @ 50 mls/hr UNSCH PRN IV 04/26/18 12:00 (Mag-Ox) 800 mg UNSCH PRN PO 04/26/18 12:00 Magnesium Sulfate 2 gm/Sodium Chloride 100 ml @ 50 mls/hr UNSCH PRN IV 04/26/18 12:00 (K-Phos) 2,000 mg Q4H PRN PO 04/26/18 12:00 Sodium Phosphate 30 mmol/Sodium Chloride 250 ml @ 42 mls/hr UNSCH PRN IV 04/26/18 12:00 04/26/18 16:34 (K-Phos) 2,000 mg UNSCH PRN PO/TUBE 04/26/18 12:00 Potassium Phosphate 30 mmol/ Sodium Chloride 260 ml @ 42 mls/hr UNSCH PRN IV 04/26/18 12:00 04/30/18 10:00 (Peridex 0.12% Liq) 15 ml BID@08,20 MT 04/26/18 20:00 04/26/18 20:42 (Lactulose Liq) 30 ml DAILY PO 04/26/18 16:00 04/30/18 09:57 (Ativan Inj) 1 mg Q4H PRN IV PUSH 04/28/18 09:00 04/30/18 02:23 (NS Flush) 2 ml BID IV FLUSH 04/28/18 21:00 04/30/18 09:59 Multivitamins 10 ml/Folic Acid 1 mg/Sodium Chloride 510.2 ml @ 125 mls/hr Q24H IV 04/28/18 12:00 05/03/18 11:59 04/29/18 10:38 Thiamine HCl 100 mg/Sodium Chloride 101 ml @ 100 mls/hr Q24H IV 04/28/18 12:00 05/01/18 11:59 04/29/18 12:14 (Romazicon Inj) 0.2 mg Q1M PRN IV PUSH 04/28/18 10:45 (Ativan) 1 mg Q4H PRN PO 04/28/18 10:45 (Ativan Inj) 1 mg Q4H PRN IV PUSH 04/28/18 10:45 (Ativan) 2 mg Q2H PRN PO 04/28/18 10:45 04/29/18 21:28 (Ativan Inj) 2 mg Q2H PRN IV PUSH 04/28/18 10:45 04/30/18 01:44 (Ativan Inj) 2 mg Q1H PRN IV PUSH 04/28/18 10:45 04/29/18 10:39 (Ativan Inj) 2 mg Q15M PRN IV PUSH 04/28/18 10:45 04/29/18 12:33 (Pepcid Inj) 20 mg Q12HR IV PUSH 04/30/18 21:00 Vital Signs / I&O Vital Signs Date Time Temp Pulse Resp B/P (MAP) Pulse Ox O2 Delivery O2 Flow Rate FiO2 04/30/18 08:01 100 Nasal Cannula 2.50 04/30/18 08:00 79 04/30/18 07:00 100 Nasal Cannula 3.00 04/30/18 06:00 79 04/30/18 04:00 81 04/30/18 04:00 98.2 81 40 149/67 (94) 100 04/30/18 02:00 89 04/30/18 00:00 97.4 103 36 149/64 (92) 100 04/30/18 00:00 103 04/29/18 22:03 100 Nasal Cannula 3.00 04/29/18 22:00 108 04/29/18 20:00 120 04/29/18 20:00 98.5 120 49 151/97 (115) 97 04/29/18 19:00 96 Nasal Cannula 3.00 04/29/18 18:00 112 04/29/18 17:00 94 04/29/18 16:00 98.7 114 58 145/100 (115) 99 04/29/18 16:00 114 I/O 5/29/04/29/18 04/29/18 04/30/18 04/30/18 04/30/18 07:00 15:00 23:00 07:00 15:00 23:00 Intake Total 450 ml 961.2 ml 475 ml 200 ml Output Total 2500 ml Balance 450 ml 961.2 ml 475 ml -2300 ml Intake Oral 50 ml IV Total 400 ml 961.2 ml 475 ml 200 ml Output Urine Total 2500 ml # Voids 5 2 1 Physical Exam GENERAL: NAD, resting comfortably SKIN: Warm and dry. HEAD: Atraumatic. Normocephalic. EYES: Pupils equal and round. No scleral icterus. No injection or drainage. ENT: No nasal bleeding or discharge. Mucous membranes pink and moist. NECK: Trachea midline. No JVD. CARDIOVASCULAR: Regular rate and rhythm. RESPIRATORY: No accessory muscle use. Clear to auscultation. Breath sounds equal bilaterally. GASTROINTESTINAL: Abdomen soft, non-tender, nondistended. Hepatic and splenic margins not palpable. MUSCULOSKELETAL: Extremities without clubbing, cyanosis, or edema. No obvious deformities. NEUROLOGICAL: Awake and alert. No obvious cranial nerve deficits. Motor grossly within normal limits. Five out of 5 muscle strength in the arms and legs. Normal speech. PSYCHIATRIC: Appropriate mood and affect; insight and judgment normal. Laboratory Laboratory Tests Test 04/29/18 17:23 04/29/18 20:35 04/30/18 04:50 D-Dimer Quantitative (PE/DVT) 7.09 MG/L FEU Urine Color YELLOW Urine Turbidity CLEAR Urine pH 6.0 Urine Specific [place] 1.016 Urine Protein 30 mg/dL Urine Glucose (UA) NEG mg/dL Urine Ketones 40 mg/dL Urine Occult Blood NEG Urine Nitrite NEG Urine Bilirubin NEG Urine Urobilinogen 4.0 MG/DL Urine Leukocyte Esterase NEG Urine RBC 1 /hpf Urine WBC 1 /hpf Urine Squamous Epithelial Cells 1 /hpf Urine Mucus FEW /lpf Microscopic Urinalysis Comment CULT NOT INDICATED White Blood Count 5.4 TH/MM3 Red Blood Count 3.12 MIL/MM3 Hemoglobin 9.7 GM/DL Hematocrit 28.5 % Mean Corpuscular Volume 91.2 FL Mean Corpuscular Hemoglobin 31.1 PG Mean Corpuscular Hemoglobin Concent 34.1 % Red Cell Distribution Width 14.6 % Platelet Count 196 TH/MM3 Mean Platelet Volume 8.8 FL Neutrophils (%) (Auto) 74.6 % Lymphocytes (%) (Auto) 16.0 % Monocytes (%) (Auto) 6.8 % Eosinophils (%) (Auto) 2.1 % Basophils (%) (Auto) 0.5 % Neutrophils # (Auto) 4.0 TH/MM3 Lymphocytes # (Auto) 0.9 TH/MM3 Monocytes # (Auto) 0.4 TH/MM3 Eosinophils # (Auto) 0.1 TH/MM3 Basophils # (Auto) 0.0 TH/MM3 CBC Comment DIFF FINAL Differential Comment Blood Urea Nitrogen 8 MG/DL Creatinine 0.63 MG/DL Random Glucose 70 MG/DL Total Protein 6.1 GM/DL Albumin 2.2 GM/DL Calcium Level 8.7 MG/DL Phosphorus Level 1.7 MG/DL Magnesium Level 2.2 MG/DL Alkaline Phosphatase 175 U/L Aspartate Amino Transf (AST/SGOT) 31 U/L Alanine Aminotransferase (ALT/SGPT) 35 U/L Total Bilirubin 1.4 MG/DL Direct Bilirubin 0.9 MG/DL Sodium Level 144 MEQ/L Potassium Level 3.2 MEQ/L Chloride Level 108 MEQ/L Carbon Dioxide Level 28.5 MEQ/L Anion Gap 8 MEQ/L Estimat Glomerular Filtration Rate 101 ML/MIN Indirect Bilirubin 0.5 MG/DL Total Creatine Kinase 173 U/L Imaging Last 24 hours Impressions Upper Extremity Ultrasound 04/30/18 0000 Signed Impressions: CONCLUSION: 1. No evidence of deep venous thrombosis. 2. Mildly suboptimal exam. Assessment and Plan Problem List: (1) HTN (hypertension) ICD Codes: I10 - Essential (primary) hypertension (2) Cardiomyopathy ICD Codes: I42.9 - Cardiomyopathy, unspecified (3) Amphetamine abuse ICD Codes: F15.10 - Other stimulant abuse, uncomplicated (4) Adjustment disorder with mixed disturbance of emotions and conduct ICD Codes: F43.25 - Adjustment disorder with mixed disturbance of emotions and conduct (5) DAVIE (acute kidney injury) ICD Codes: N17.9 - Acute kidney failure, unspecified Status: Acute (6) Rhabdomyolysis ICD Codes: M62.82 - Rhabdomyolysis Status: Acute (7) Substance abuse ICD Codes: F19.10 - Other psychoactive substance abuse, uncomplicated Status: Acute (8) Acute respiratory failure with hypoxia and hypercapnia ICD Codes: J96.01 - Acute respiratory failure with hypoxia; J96.02 - Acute respiratory failure with hypercapnia Status: Acute Assessment and Plan 1) Amphetamine use/overdose Cessation 2) Acute respiratory failure s/p extubation 3) Cardiomyopathy, EF 30-35% Overall not a candidate for ischemic evaluation Con't medical management No BB due to amphetamine abuse Start on WILBERT-I Most likely due to amphetamine use 4) HTN Most likely due to withdrawal/encephalopathy Veto Mendez DO April 30, 2018 15:20
--- NOTE | 2018-04-30 19:17 | HHI.PR ---
Subjective Remarks This is a 48yo female with unknown PMH that was transferred to [facility] ED for possible overdose. Per report the patient was in a hotel and pt was scheduled to check out of the hotel, and upon evaluation EVAC was called . The patient was found pt on the floor, mumbling and not responding appropriately. Per report there was drug paraphernalia on the floor in the hotel around the patient. The patient was noted to be in respiratory distress and O2 sat was in the 70s on room air. Pt placed on 100% nonrebreather mask and the O2 saturation increased to the 80s. In the ED , the patient was moving all extremities but was not oriented or answering questions. Pt was tachypneic with diffuse coarse breath sounds in bilateral lungs. Pt was emergently intubated. Imaging and laboratory studies reveal urine toxicity positive for amphetamines unable to obtain further history. Critical care medicine was consulted Subjective: 04/27: No acute events overnight. Leukocytosis resolved. Patient continues on antibiotics. EEG obtained. patient alert awake oriented following commands this a.m.. Currently on CPAP trials greater than 2 hours plan for SBT and possible extubation this a.m. 04/28: No acute events overnight . The patient was successfully extubated yesterday afternoon. The patient was placed on a clear liquid diet will advance to regular diet . Discussion with family patient has had multiple attempts at suicide. Psychiatry consulted, await recommendations. 04/29. Patient wakes up for exam, appears to tell me to get out of the room. Denies any pain. Nursing reports that patient has been violent, has tried to kick the nurse. 04/30. Patient more alert today. patient reports pain all over. Denies any chest pain or shortness of breath. some mild swelling in right arm noted by nursing. Objective Vital Signs Date Time Temp Pulse Resp B/P (MAP) Pulse Ox O2 Delivery O2 Flow Rate FiO2 04/30/18 08:01 100 Nasal Cannula 2.50 04/30/18 08:00 79 04/30/18 07:00 100 Nasal Cannula 3.00 04/30/18 06:00 79 04/30/18 04:00 81 04/30/18 04:00 98.2 81 40 149/67 (94) 100 04/30/18 02:00 89 04/30/18 00:00 97.4 103 36 149/64 (92) 100 04/30/18 00:00 103 04/29/18 22:03 100 Nasal Cannula 3.00 04/29/18 22:00 108 04/29/18 20:00 120 04/29/18 20:00 98.5 120 49 151/97 (115) 97 I/O 04/29/18 04/29/18 04/29/18 04/30/18 04/30/18 04/30/18 07:00 15:00 23:00 07:00 15:00 23:00 Intake Total 450 ml 961.2 ml 475 ml 200 ml Output Total 2500 ml Balance 450 ml 961.2 ml 475 ml -2300 ml Intake Oral 50 ml IV Total 400 ml 961.2 ml 475 ml 200 ml Output Urine Total 2500 ml # Voids 5 2 1 Result Diagram: 04/30/18 0450 04/30/18 0450 Objective Remarks GENERAL: Patient lying in bed in restraints. Appears comfortable. awake, alert. Still disoriented. SKIN: Warm and dry. HEAD: Normocephalic. EYES: No scleral icterus. No injection or drainage. NECK: Supple, trachea midline. No JVD. CARDIOVASCULAR: Regular rate and rhythm without murmurs, gallops, or rubs. RESPIRATORY: Breath sounds equal bilaterally. No accessory muscle use. GASTROINTESTINAL: Abdomen soft, non-tender, nondistended. MUSCULOSKELETAL: No cyanosis, or edema. BACK: Nontender without obvious deformity. No CVA tenderness. A/P Assessment and Plan Plan by systems: Neurologic: //Encephalopathy //Substance use disorder //Agitation/anxiety 04/26-CT brain-negative Monitor for signs of withdrawal Ativan 1 mg every 4 hours as needed for anxiety and agitation 04/27 EEG-stage II sleep normal. Obtain psychiatry consult TSH level-0.7 WNL cortisol level-60.0 = Continue [facility] protocol. Psychiatry following. appreciate assistance. Respiratory: //Acute hypoxic and hypercapnic respiratory failure //Probable aspiration //Maintain O2 saturation greater than 92% 04/26-intubated for airway protection 04/27-extubated 04/28 pulmonary edema-Lasix 40 mg IV 1 dose Duo nebs every 6 hours scheduled and every 2 hours as needed = 04/28 with bilateral pulmonary infiltrates.. ABG reviewed, appears acceptable , however patient breathing 40 times a minute. Will check BNP. Check d-dimer. =04/30. No signs of pulmonary embolism. Cardiovascular: //Sinus tachycardia. //Cardiomyopathy Initial troponin 0 0.02, continue to monitor Maintain MAP greater than 65mmHg 04/27 echo -EF 30-35%, trace TR, no RWMA = Consult cardiology.appreciate cardiology assistance. Renal: //hypokalemia. Replaced and monitor //hypophosphatemia. Replace and monitor. FEN/GI: //Rhabdomyolysis ///AK I //Hyperammonemia Basic regular diet initiated Trend CK MB, and creatinine kinase, now downtrending Creatinine 1.4, continue to trend = Ammonia mildly elevated on admission. Lactulose 30ml/day =Start bicarb for rhabdomyolysis. Pending BNP Heme/ID: //Leukocytosis //Bandemia F/U blood , sputum cultures Monitor CBC Continue azithromycin and Zosyn =04/30 Status is improved. Still with bilateral infiltrates. Likely had aspiration event in the hotel room. Continue antibiotics for aspiration. //Prophylaxis: //GI Prophylaxis=Famotidine twice daily //DVT Prophylaxis:-- SCDs, Heparin SQ every 12 hours Discharge Planning slow improvement. Patient is self-pay. Appreciate case management assistance. Jairo Philippe MD April 30, 2018 19:17
[2018-05-01] VITALS (21 sets, daily range): BP systolic 132–149; BP diastolic 66–101; PULSE 79–117; RESP 19–61; TEMP 97.7–98.6; O2SAT 94–100
[2018-05-01] MEDS: PIPERACIL-TAZO 4.5 GM PREMIX 100 ML IV SCH ×4 (00:20→18:16)
[2018-05-01] MEDS: HEPARIN SODIUM - SQ 10,000 UNITS/ML VIAL SQ SCH ×2 (00:20→13:34)
[2018-05-01] MEDS: CHLORHEXIDINE GLUCONATE 2 % 1 PACK (2 CLOTHS) TOP SCH (03:36)
[2018-05-01 07:23] LABS: AUTOMATED NEUTROPHIL # 3.6 TH/MM3 (1.8-7.7); BASOPHIL % 0.5 % (0.0-2.0); EOSINOPHIL # 0.1 TH/MM3 (0-0.4); EOSINOPHIL % 2.2 % (0.0-4.0); HEMATOCRIT 30.4 % (35.0-46.0); HEMOGLOBIN 10.2 GM/DL (11.6-15.3); LYMPH % 16.1 % (9.0-44.0); LYMPHOCYTE # 0.8 TH/MM3 (1.0-4.8); MEAN CELL VOLUME 90.5 FL (80.0-100.0); MEAN CORPUSCULAR HEMOGLOBIN 30.3 PG (27.0-34.0); MEAN CORPUSCULAR HGB CONC 33.5 % (32.0-36.0); MEAN PLATELET VOLUME 8.6 FL (7.0-11.0); MONO % 9.3 % (0.0-8.0); MONOCYTE # 0.5 TH/MM3 (0-0.9); NEUT % 71.9 % (16.0-70.0); PLATELET COUNT 208 TH/MM3 (150-450); RED BLOOD COUNT 3.36 MIL/MM3 (4.00-5.30); RED CELL DISTRIBUTION WIDTH 14.4 % (11.6-17.2)
[2018-05-01 07:42] LABS: BICARBONATE 27.5 MEQ/L (21.0-32.0); CALCIUM 8.6 MG/DL (8.5-10.1); CREATININE 0.52 MG/DL (0.50-1.00); DIRECT BILIRUBIN ADULT 0.7 MG/DL (0.0-0.2); INDIRECT BILIRUBIN 0.5 MG/DL (0.0-0.8); PHOSPHORUS 2.3 MG/DL (2.5-4.9); TOTAL BILIRUBIN ADULT 1.2 MG/DL (0.2-1.0)
[2018-05-01] MEDS: CHLORHEXIDINE 0.12% (ORAL KIT) 15 ML CUP MT SCH ×2 (08:00→19:24)
[2018-05-01] MEDS: LACTULOSE SYRUP 20 GM/30 ML CUP PO SCH (09:00)
[2018-05-01] MEDS: DOCUSATE SODIUM 50 MG/SENNA 8.6 MG TAB PO SCH ×2 (09:00→19:29)
[2018-05-01] MEDS: ARTIFICIAL TEARS OPTH SOLN 15 ML BTL EACH EYE SCH ×3 (09:00→18:00)
[2018-05-01] MEDS: FAMOTIDINE 20 MG/2 ML VIAL IV PUSH SCH ×2 (09:29→19:26)
[2018-05-01] MEDS: POTASSIUM CHLOR 20 MEQ PREMIX 100 ML IV PRN ×4 (09:29→18:16)
[2018-05-01] MEDS: SODIUM CHLORIDE 0.9% FLUSH 10 ML FLUSH IV FLUSH SCH ×4 (09:30→19:29)
--- NOTE | 2018-05-01 11:48 | RADRPT ---
EXAM DATE: 05/01/2018 10:51 AM EDT AGE/SEX: 48 years / Female INDICATIONS: Increased lab values. CLINICAL DATA: This is the patient's initial encounter. Patient reports that signs and symptoms have been present for 1 day and indicates a pain score of Nonresponsive. MEDICAL/SURGICAL HISTORY: . Unknown. . Unknown. COMPARISON: No prior [place] exams available for comparison. MEASUREMENTS (cm x cm x cm): Liver:__ 18.2 cm length Common Bile Duct:__ 6mm Right Kidney:__ 10.8 x 5.2 x 4.6 cm FINDINGS: Liver: Normal echotexture without focal lesion or ductal dilatation. Portal Vein: Hepatopedal flow seen in portal vein. Common Duct: No intralumincal mass or stone visualized. Gallbladder: Surgically Absent. Pancreas: The visualized portions are within normal limits Right Kidney: No mass or hydronephrosis Other: Bilateral pleural effusions. CONCLUSION: 1. Liver borderline prominent. 2. Bilateral pleural effusions. 3. Status post cholecystectomy. Electronically signed by: Ricardo Bennett MD 05/01/2018 11:46 AM EDT
[2018-05-01] MEDS ORDERED: POTASSIUM PHOSPHATE INJ 15 MMOL in SODIUM CHLORIDE 0.9% INJ 150 ML IV ONE (12:30)
[2018-05-01] MEDS ORDERED: POTASSIUM CHLORIDE 10 MEQ CONTROLLED RELEASE TAB PO ONE (12:30)
--- NOTE | 2018-05-01 13:16 | PD.CARD.PN ---
Subjective Subjective Remarks No events overnight Still in restraints More talkative today and answering questions, comfortable and calm No chest pain/SOB Objective Medications Current Medications Medications (Trade) Dose Ordered Sig/Alfa Route Start Time Stop Time Status Last Admin (NS Flush) 2 ml UNSCH PRN IV FLUSH 04/26/18 12:00 (NS Flush) 2 ml BID IV FLUSH 04/26/18 21:00 05/01/18 09:30 (Tylenol) 650 mg Q6H PRN PO 04/26/18 12:00 (Tears Naturale Opth Soln) 1 drop TID EACH EYE 04/26/18 13:00 04/29/18 18:00 (Duoneb Neb) 1 ampule Q2HR NEB PRN INH 04/26/18 12:00 04/29/18 05:06 (Heparin Inj) 5,000 units Q12H SQ 04/26/18 12:00 05/01/18 00:20 ([facility] Nursing Information) 1 Q361D XX 04/26/18 12:00 04/26/18 12:00 (Chlorhexidine 2% Cloth) 3 pack Taper DAILY@04 TOP 04/27/18 04:00 04/23/19 03:59 05/01/18 03:36 (Chlorhexidine 2% Cloth) 3 pack UNSCH PRN TOP 04/26/18 12:00 (Evelin-Colace) 1 tab BID PO 04/26/18 21:00 04/30/18 09:58 (Milk Of Magnesia Liq) 30 ml Q12H PRN PO 04/26/18 12:00 (Senokot) 17.2 mg Q12H PRN PO 04/26/18 12:00 (Dulcolax Supp) 10 mg DAILY PRN RECTAL 04/26/18 12:00 (Lactulose Liq) 30 ml DAILY PRN PO 04/26/18 12:00 Piperacillin Sod/ Tazobactam Sod 100 ml @ 200 mls/hr Q6H IV 04/26/18 12:00 05/01/18 05:29 Azithromycin 500 mg/Sodium Chloride 250 ml @ 250 mls/hr Q24H IV 04/26/18 12:00 04/30/18 15:18 Potassium Chloride 100 ml @ 50 mls/hr Q2H PRN IV 04/26/18 12:00 Potassium Chloride 100 ml @ 50 mls/hr Q2H PRN IV 04/26/18 12:00 05/01/18 11:39 (K-Lyte Cl Eff) 50 meq UNSCH PRN PO 04/26/18 12:00 04/28/18 09:11 Potassium Chloride 100 ml @ 25 mls/hr UNSCH PRN IV 04/26/18 12:00 Potassium Chloride 100 ml @ 50 mls/hr Q2H PRN IV 04/26/18 12:00 04/28/18 20:06 Magnesium Sulfate 4 gm/Sodium Chloride 100 ml @ 50 mls/hr UNSCH PRN IV 04/26/18 12:00 (Mag-Ox) 800 mg UNSCH PRN PO 04/26/18 12:00 Magnesium Sulfate 2 gm/Sodium Chloride 100 ml @ 50 mls/hr UNSCH PRN IV 04/26/18 12:00 (K-Phos) 2,000 mg Q4H PRN PO 04/26/18 12:00 Sodium Phosphate 30 mmol/Sodium Chloride 250 ml @ 42 mls/hr UNSCH PRN IV 04/26/18 12:00 04/26/18 16:34 (K-Phos) 2,000 mg UNSCH PRN PO/TUBE 04/26/18 12:00 Potassium Phosphate 30 mmol/ Sodium Chloride 260 ml @ 42 mls/hr UNSCH PRN IV 04/26/18 12:00 04/30/18 10:00 (Peridex 0.12% Liq) 15 ml BID@08,20 MT 04/26/18 20:00 04/30/18 20:00 (Lactulose Liq) 30 ml DAILY PO 04/26/18 16:00 04/30/18 09:57 (Ativan Inj) 1 mg Q4H PRN IV PUSH 04/28/18 09:00 04/30/18 02:23 (NS Flush) 2 ml BID IV FLUSH 04/28/18 21:00 05/01/18 09:30 Multivitamins 10 ml/Folic Acid 1 mg/Sodium Chloride 510.2 ml @ 125 mls/hr Q24H IV 04/28/18 12:00 05/03/18 11:59 04/30/18 15:17 (Romazicon Inj) 0.2 mg Q1M PRN IV PUSH 04/28/18 10:45 (Ativan) 1 mg Q4H PRN PO 04/28/18 10:45 (Ativan Inj) 1 mg Q4H PRN IV PUSH 04/28/18 10:45 (Ativan) 2 mg Q2H PRN PO 04/28/18 10:45 04/29/18 21:28 (Ativan Inj) 2 mg Q2H PRN IV PUSH 04/28/18 10:45 04/30/18 01:44 (Ativan Inj) 2 mg Q1H PRN IV PUSH 04/28/18 10:45 04/29/18 10:39 (Ativan Inj) 2 mg Q15M PRN IV PUSH 04/28/18 10:45 04/29/18 12:33 (Pepcid Inj) 20 mg Q12HR IV PUSH 04/30/18 21:00 05/01/18 09:29 Potassium Phosphate 15 mmol/ Sodium Chloride 155 ml @ 38.75 mls/ hr ONCE ONCE IV 05/01/18 12:30 05/01/18 16:29 Vital Signs / I&O Vital Signs Date Time Temp Pulse Resp B/P (MAP) Pulse Ox O2 Delivery O2 Flow Rate FiO2 05/01/18 09:08 98 Nasal Cannula 2.00 05/01/18 06:00 82 05/01/18 04:16 95 Nasal Cannula 2.00 05/01/18 04:00 79 05/01/18 04:00 98.2 79 40 132/81 (98) 95 05/01/18 02:00 101 05/01/18 00:00 97.7 84 42 134/66 (88) 98 05/01/18 00:00 84 04/30/18 23:58 99 Nasal Cannula 2.00 04/30/18 20:00 119 04/30/18 19:37 95 Nasal Cannula 2.00 04/30/18 19:00 99 Nasal Cannula 2.00 04/30/18 18:00 95 04/30/18 16:00 113 04/30/18 16:00 98.5 113 30 117/98 (104) 98 04/30/18 14:00 90 I/O 04/30/18 04/30/18 04/30/18 05/01/18 05/01/18 05/01/18 07:00 15:00 23:00 07:00 15:00 23:00 Intake Total 200 ml 601 ml 260 ml Output Total 2500 ml 1800 ml 1750 ml Balance -2300 ml -1199 ml -1490 ml Intake Oral 500 ml 60 ml IV Total 200 ml 101 ml 200 ml Output Urine Total 2500 ml 1800 ml 1750 ml # Voids 1 # Bowel Movements 1 0 Physical Exam GENERAL: NAD, resting comfortably SKIN: Warm and dry. HEAD: Atraumatic. Normocephalic. EYES: Pupils equal and round. No scleral icterus. No injection or drainage. ENT: No nasal bleeding or discharge. Mucous membranes pink and moist. NECK: Trachea midline. No JVD. CARDIOVASCULAR: Regular rate and rhythm. RESPIRATORY: No accessory muscle use. Clear to auscultation. Breath sounds equal bilaterally. GASTROINTESTINAL: Abdomen soft, non-tender, nondistended. Hepatic and splenic margins not palpable. MUSCULOSKELETAL: Extremities without clubbing, cyanosis, or edema. No obvious deformities. NEUROLOGICAL: Awake and alert. No obvious cranial nerve deficits. Motor grossly within normal limits. Five out of 5 muscle strength in the arms and legs. Normal speech. PSYCHIATRIC: Appropriate mood and affect; insight and judgment normal. Laboratory Laboratory Tests Test 04/30/18 20:30 05/01/18 05:41 Hepatitis A IgM Antibody NONREACTIVE Hepatitis B Surface Antigen NONREACTIVE Hepatitis B Core IgM Antibody NONREACTIVE Hepatitis C IgG Antibody NONREACTIVE White Blood Count 5.0 TH/MM3 Red Blood Count 3.36 MIL/MM3 Hemoglobin 10.2 GM/DL Hematocrit 30.4 % Mean Corpuscular Volume 90.5 FL Mean Corpuscular Hemoglobin 30.3 PG Mean Corpuscular Hemoglobin Concent 33.5 % Red Cell Distribution Width 14.4 % Platelet Count 208 TH/MM3 Mean Platelet Volume 8.6 FL Neutrophils (%) (Auto) 71.9 % Lymphocytes (%) (Auto) 16.1 % Monocytes (%) (Auto) 9.3 % Eosinophils (%) (Auto) 2.2 % Basophils (%) (Auto) 0.5 % Neutrophils # (Auto) 3.6 TH/MM3 Lymphocytes # (Auto) 0.8 TH/MM3 Monocytes # (Auto) 0.5 TH/MM3 Eosinophils # (Auto) 0.1 TH/MM3 Basophils # (Auto) 0.0 TH/MM3 CBC Comment DIFF FINAL Differential Comment Blood Urea Nitrogen 7 MG/DL Creatinine 0.52 MG/DL Random Glucose 58 MG/DL Total Protein 6.0 GM/DL Albumin 2.0 GM/DL Calcium Level 8.6 MG/DL Phosphorus Level 2.3 MG/DL Magnesium Level 2.0 MG/DL Alkaline Phosphatase 185 U/L Aspartate Amino Transf (AST/SGOT) 22 U/L Alanine Aminotransferase (ALT/SGPT) 29 U/L Total Bilirubin 1.2 MG/DL Direct Bilirubin 0.7 MG/DL Sodium Level 143 MEQ/L Potassium Level 2.9 MEQ/L Chloride Level 104 MEQ/L Carbon Dioxide Level 27.5 MEQ/L Anion Gap 12 MEQ/L Estimat Glomerular Filtration Rate 126 ML/MIN Indirect Bilirubin 0.5 MG/DL Imaging Last 24 hours Impressions Liver Ultrasound 05/01/18 0000 Signed Impressions: CONCLUSION: 1. Liver borderline prominent. 2. Bilateral pleural effusions. 3. Status post cholecystectomy. Assessment and Plan Problem List: (1) HTN (hypertension) ICD Codes: I10 - Essential (primary) hypertension (2) Cardiomyopathy ICD Codes: I42.9 - Cardiomyopathy, unspecified (3) Amphetamine abuse ICD Codes: F15.10 - Other stimulant abuse, uncomplicated (4) Adjustment disorder with mixed disturbance of emotions and conduct ICD Codes: F43.25 - Adjustment disorder with mixed disturbance of emotions and conduct (5) DAVIE (acute kidney injury) ICD Codes: N17.9 - Acute kidney failure, unspecified Status: Acute (6) Rhabdomyolysis ICD Codes: M62.82 - Rhabdomyolysis Status: Acute (7) Substance abuse ICD Codes: F19.10 - Other psychoactive substance abuse, uncomplicated Status: Acute (8) Acute respiratory failure with hypoxia and hypercapnia ICD Codes: J96.01 - Acute respiratory failure with hypoxia; J96.02 - Acute respiratory failure with hypercapnia Status: Acute Assessment and Plan 1) Amphetamine use/overdose Cessation 2) Acute respiratory failure s/p extubation 3) Cardiomyopathy, EF 30-35% Overall not a candidate for ischemic evaluation Con't medical management No BB due to amphetamine abuse WILBERT-I Most likely due to amphetamine use Diuresing well 4) HTN Most likely due to withdrawal/encephalopathy Better on WILBERT-I Veto Mendez DO May 01, 2018 13:16
[2018-05-01] MEDS: AZITHROMYCIN INJ 500 MG in SODIUM CHLOR 0.9% 250 ML INJ 250 ML IV SCH (13:33)
[2018-05-01] MEDS: MULTIVITAMIN INJ 10 ML, FOLIC ACID INJ 1 MG in SODIUM CHLORID 0.9% 500 ML INJ 500 ML IV SCH (13:33)
--- NOTE | 2018-05-01 14:32 | HHI.PR ---
Subjective Remarks This is a 48yo female with unknown PMH that was transferred to [facility] ED for possible overdose. Per report the patient was in a hotel and pt was scheduled to check out of the hotel, and upon evaluation EVAC was called . The patient was found pt on the floor, mumbling and not responding appropriately. Per report there was drug paraphernalia on the floor in the hotel around the patient. The patient was noted to be in respiratory distress and O2 sat was in the 70s on room air. Pt placed on 100% nonrebreather mask and the O2 saturation increased to the 80s. In the ED , the patient was moving all extremities but was not oriented or answering questions. Pt was tachypneic with diffuse coarse breath sounds in bilateral lungs. Pt was emergently intubated. Imaging and laboratory studies reveal urine toxicity positive for amphetamines unable to obtain further history. Critical care medicine was consulted Subjective: 04/27: No acute events overnight. Leukocytosis resolved. Patient continues on antibiotics. EEG obtained. patient alert awake oriented following commands this a.m.. Currently on CPAP trials greater than 2 hours plan for SBT and possible extubation this a.m. 04/28: No acute events overnight . The patient was successfully extubated yesterday afternoon. The patient was placed on a clear liquid diet will advance to regular diet . Discussion with family patient has had multiple attempts at suicide. Psychiatry consulted, await recommendations. 04/29. Patient wakes up for exam, appears to tell me to get out of the room. Denies any pain. Nursing reports that patient has been violent, has tried to kick the nurse. 04/30. Patient more alert today. patient reports pain all over. Denies any chest pain or shortness of breath. some mild swelling in right arm noted by nursing. 05/01. Patient more alert than yesterday. He reports pain has resolved. Denies any chest pain or shortness of breath. She says that she took 3 boxes of Sudafed, as well as a bottle of sleeping pills [id number] in an attempt to commit suicide. Objective Vital Signs Date Time Temp Pulse Resp B/P (MAP) Pulse Ox O2 Delivery O2 Flow Rate FiO2 05/01/18 09:08 98 Nasal Cannula 2.00 05/01/18 06:00 82 05/01/18 04:16 95 Nasal Cannula 2.00 05/01/18 04:00 79 05/01/18 04:00 98.2 79 40 132/81 (98) 95 05/01/18 02:00 101 05/01/18 00:00 97.7 84 42 134/66 (88) 98 05/01/18 00:00 84 04/30/18 23:58 99 Nasal Cannula 2.00 04/30/18 20:00 119 04/30/18 19:37 95 Nasal Cannula 2.00 04/30/18 19:00 99 Nasal Cannula 2.00 04/30/18 18:00 95 04/30/18 16:00 113 04/30/18 16:00 98.5 113 30 117/98 (104) 98 I/O 04/30/18 04/30/18 04/30/18 05/01/18 05/01/18 05/01/18 06:59 14:59 22:59 06:59 14:59 22:59 Intake Total 200 ml 601 ml 260 ml Output Total 2500 ml 1800 ml 1750 ml Balance -2300 ml -1199 ml -1490 ml Intake Oral 500 ml 60 ml IV Total 200 ml 101 ml 200 ml Output Urine Total 2500 ml 1800 ml 1750 ml # Voids 1 # Bowel Movements 1 0 Result Diagram: 05/01/18 0541 05/01/18 0541 Objective Remarks GENERAL: Patient lying in bed in restraints. Appears comfortable. awake, alert. Oriented to year, not to place, seems generally confused, however improving. SKIN: Warm and dry. HEAD: Normocephalic. EYES: No scleral icterus. No injection or drainage. NECK: Supple, trachea midline. No JVD. CARDIOVASCULAR: Regular rate and rhythm without murmurs, gallops, or rubs. RESPIRATORY: Breath sounds equal bilaterally. No accessory muscle use. GASTROINTESTINAL: Abdomen soft, non-tender, nondistended. MUSCULOSKELETAL: No cyanosis, or edema. BACK: Nontender without obvious deformity. No CVA tenderness. A/P Assessment and Plan Plan by systems: Neurologic: //Encephalopathy //Substance use disorder //Agitation/anxiety //Suicide attempt -overdose on his Sudafed and sleeping tablets 04/26-CT brain-negative Monitor for signs of withdrawal Ativan 1 mg every 4 hours as needed for anxiety and agitation 04/27 EEG-stage II sleep normal. Obtain psychiatry consult TSH level-0.7 WNL cortisol level-60.0 = Continue [facility] protocol. Psychiatry following. appreciate assistance. = -31. Improving. Advanced to regular diet. Patient says she overdosed on Sudafed and sleeping tablets Respiratory: //Acute hypoxic and hypercapnic respiratory failure //Probable aspiration //Maintain O2 saturation greater than 92% 04/26-intubated for airway protection 04/27-extubated 04/28 pulmonary edema-Lasix 40 mg IV 1 dose Duo nebs every 6 hours scheduled and every 2 hours as needed = 04/28 with bilateral pulmonary infiltrates.. ABG reviewed, appears acceptable , however patient breathing 40 times a minute. Will check BNP. Check d-dimer. =04/30. No signs of pulmonary embolism. Cardiovascular: //Sinus tachycardia. //Cardiomyopathy Initial troponin 0 0.02, continue to monitor Maintain MAP greater than 65mmHg 04/27 echo -EF 30-35%, trace TR, no RWMA = Discussed with cardiology. Appreciate assistance. Monitor fluid status closely. Renal: //hypokalemia. Replaced and monitor //hypophosphatemia. Replace and monitor. FEN/GI: //Rhabdomyolysis ///AK I //Hyperammonemia Basic regular diet initiated Trend CK MB, and creatinine kinase, now downtrending Creatinine 1.4, continue to trend = Ammonia mildly elevated on admission. Lactulose 30ml/day Improved Heme/ID: //Leukocytosis //Bandemia F/U blood , sputum cultures Monitor CBC Continue azithromycin and Zosyn = Improving. Continue antibiotics for aspiration. //Prophylaxis: //GI Prophylaxis=Famotidine twice daily //DVT Prophylaxis:-- SCDs, Heparin SQ every 12 hours Discharge Planning slow improvement. Still on Rondon act for suicide attempt Patient is self-pay. Appreciate case management assistance. Jairo Philippe MD May 01, 2018 14:31
--- NOTE | 2018-05-01 14:34 | HHI.PYPN ---
Subjective Remarks I have seen and examined this patient for reevaluation today in the ICU. The patient is a little bit sedated and is sleepy, but cooperative. She says that she feels much better today. Patient reports that she made a mistake by overdosing, was overwhelmed and high in drugs, not thinking right. The patient states that she wants to leave the hospital as soon as possible she does not want to be admitted in psychiatry. She says that her father is very sick and she has 6 kids that she has to take her of, he says that her kids are with a very good friend. At this moment the patient denies depression, denies suicidal and homicidal ideation, she denies visual and auditory hallucinations. Patient states that she has no previous psychiatric history, other than a suicidal attempt in the past. I try to get collateral information from Hua ( ) [phone] and also Ed, who is a friend, , both neither of them answered the phone. Mental Status Examination Appearance: Disheveled Consciousness: Alert Orientation: Person (At least. Patient uncooperative with my attempts at mental status testing.) Motor Activity: Other (Motor exam as above) Speech: Other (Alternates between inappropriately loud and mumbling) Language: Adequate Fund of Knowledge: Inadequate Attention and Concentration: Easily Distracted Memory: Impaired Mood: Other (Dysphoric) Affect: Irritable, Labile Thought Process & Associations: Tangential Thought Content: Appropriate Hallucination Type: None Delusion Type: None Suicidal Ideation: No Suicidal Plan: No Suicidal Intention: No Homicidal Ideation: No Homicidal Plan: No Homicidal Intention: No Insight: Poor Judgment: Poor Results Labs Test 04/30/18 20:30 05/01/18 05:41 Hepatitis A IgM Antibody NONREACTIVE Hepatitis B Surface Antigen NONREACTIVE Hepatitis B Core IgM Antibody NONREACTIVE Hepatitis C IgG Antibody NONREACTIVE White Blood Count 5.0 TH/MM3 Red Blood Count 3.36 MIL/MM3 Hemoglobin 10.2 GM/DL Hematocrit 30.4 % Mean Corpuscular Volume 90.5 FL Mean Corpuscular Hemoglobin 30.3 PG Mean Corpuscular Hemoglobin Concent 33.5 % Red Cell Distribution Width 14.4 % Platelet Count 208 TH/MM3 Mean Platelet Volume 8.6 FL Neutrophils (%) (Auto) 71.9 % Lymphocytes (%) (Auto) 16.1 % Monocytes (%) (Auto) 9.3 % Eosinophils (%) (Auto) 2.2 % Basophils (%) (Auto) 0.5 % Neutrophils # (Auto) 3.6 TH/MM3 Lymphocytes # (Auto) 0.8 TH/MM3 Monocytes # (Auto) 0.5 TH/MM3 Eosinophils # (Auto) 0.1 TH/MM3 Basophils # (Auto) 0.0 TH/MM3 CBC Comment DIFF FINAL Differential Comment Blood Urea Nitrogen 7 MG/DL Creatinine 0.52 MG/DL Random Glucose 58 MG/DL Total Protein 6.0 GM/DL Albumin 2.0 GM/DL Calcium Level 8.6 MG/DL Phosphorus Level 2.3 MG/DL Magnesium Level 2.0 MG/DL Alkaline Phosphatase 185 U/L Aspartate Amino Transf (AST/SGOT) 22 U/L Alanine Aminotransferase (ALT/SGPT) 29 U/L Total Bilirubin 1.2 MG/DL Direct Bilirubin 0.7 MG/DL Sodium Level 143 MEQ/L Potassium Level 2.9 MEQ/L Chloride Level 104 MEQ/L Carbon Dioxide Level 27.5 MEQ/L Anion Gap 12 MEQ/L Estimat Glomerular Filtration Rate 126 ML/MIN Indirect Bilirubin 0.5 MG/DL Date/Time Source Procedure Growth Status 04/26/18 11:50 Blood Peripheral Aerobic Blood Culture - Final NO GROWTH IN 5 DAYS Complete 04/26/18 11:50 Blood Peripheral Anaerobic Blood Culture - Final NO GROWTH IN 5 DAYS Complete 04/26/18 16:40 Sputum Endotracheal Gram Stain - Final Complete 04/26/18 16:40 Sputum Endotracheal Sputum Culture - Final NO GROWTH IN 48 HOURS. Complete Vitals/IOs Vital Signs Date Time Temp Pulse Resp B/P (MAP) Pulse Ox O2 Delivery O2 Flow Rate FiO2 05/01/18 09:08 98 Nasal Cannula 2.00 05/01/18 06:00 82 05/01/18 04:00 98.2 40 132/81 (98) 04/27/18 12:00 40 Intake and Output 05/01/18 05/01/18 05/02/18 08:00 16:00 00:00 Intake Total 260 ml Output Total 1750 ml Balance -1490 ml Assessment & Plan Problem List: (1) Adjustment disorder with mixed disturbance of emotions and conduct ICD Codes: F43.25 - Adjustment disorder with mixed disturbance of emotions and conduct Assessment & Plan: Today the patient seems to be superficially minimizing symptoms of depression and recent suicidal attempt. Patient also made some contradictory statements regarding her father and her kids. No collateral information could be reached. Patient will continue on the Rondon act him for psychiatric admission for stabilization and safety. No psychotropics recommended at the moment. I will follow-up. (2) Amphetamine abuse ICD Codes: F15.10 - Other stimulant abuse, uncomplicated Assessment & Plan Estimated LOS: days Justification for Cont. Inpt. Patient would be admitted in psychiatry once medically stable. Arturo Black MD May 01, 2018 14:34
[2018-05-02] VITALS (20 sets, daily range): BP systolic 119–138; BP diastolic 74–89; PULSE 78–104; RESP 30–45; TEMP 98.1–98.5; O2SAT 91–100
[2018-05-02] MEDS: PIPERACIL-TAZO 4.5 GM PREMIX 100 ML IV SCH ×4 (00:23→18:00)
[2018-05-02] MEDS: HEPARIN SODIUM - SQ 10,000 UNITS/ML VIAL SQ SCH ×2 (00:24→11:58)
[2018-05-02] MEDS: CHLORHEXIDINE GLUCONATE 2 % 1 PACK (2 CLOTHS) TOP SCH (04:00)
[2018-05-02] MEDS: CHLORHEXIDINE 0.12% (ORAL KIT) 15 ML CUP MT SCH ×2 (08:00→19:40)
[2018-05-02 08:02] LABS: AUTOMATED NEUTROPHIL # 4.1 TH/MM3 (1.8-7.7); BASOPHIL % 0.7 % (0.0-2.0); EOSINOPHIL # 0.1 TH/MM3 (0-0.4); EOSINOPHIL % 1.3 % (0.0-4.0); HEMOGLOBIN 10.9 GM/DL (11.6-15.3); LYMPH % 16.4 % (9.0-44.0); LYMPHOCYTE # 0.9 TH/MM3 (1.0-4.8); MEAN CELL VOLUME 88.6 FL (80.0-100.0); MEAN CORPUSCULAR HEMOGLOBIN 30.1 PG (27.0-34.0); MEAN PLATELET VOLUME 8.5 FL (7.0-11.0); MONO % 9.3 % (0.0-8.0); MONOCYTE # 0.5 TH/MM3 (0-0.9); NEUT % 72.3 % (16.0-70.0); PLATELET COUNT 242 TH/MM3 (150-450); RED BLOOD COUNT 3.61 MIL/MM3 (4.00-5.30); RED CELL DISTRIBUTION WIDTH 14.1 % (11.6-17.2); WHITE BLOOD COUNT 5.6 TH/MM3 (4.0-11.0)
[2018-05-02 08:35] LABS: ALBUMIN 2.1 GM/DL (3.4-5.0); BICARBONATE 27.8 MEQ/L (21.0-32.0); CREATININE 0.66 MG/DL (0.50-1.00); MAGNESIUM 1.8 MG/DL (1.5-2.5); PHOSPHORUS 2.2 MG/DL (2.5-4.9)
[2018-05-02] MEDS: SODIUM CHLORIDE 0.9% FLUSH 10 ML FLUSH IV FLUSH SCH ×4 (09:00→19:34)
[2018-05-02] MEDS: ARTIFICIAL TEARS OPTH SOLN 15 ML BTL EACH EYE SCH ×3 (09:00→18:00)
[2018-05-02] MEDS: DOCUSATE SODIUM 50 MG/SENNA 8.6 MG TAB PO SCH ×2 (09:00→19:40)
[2018-05-02] MEDS: LACTULOSE SYRUP 20 GM/30 ML CUP PO SCH (09:00)
[2018-05-02] MEDS: FAMOTIDINE 20 MG/2 ML VIAL IV PUSH SCH ×2 (09:22→19:34)
[2018-05-02] MEDS: POTASSIUM CHLOR 20 MEQ PREMIX 100 ML IV PRN (09:22)
[2018-05-02] MEDS: RESP: ALBUTEROL 2.5 MG/IPRATROPIUM 0.5 MG NEB (PRN) INH ×2 (10:49→20:02)
[2018-05-02] MEDS: POTASSIUM CHLORIDE 25 MEQ EFFERVESCENT TAB PO PRN (11:03)
[2018-05-02] MEDS ORDERED: POTASSIUM CHLOR 20 MEQ PREMIX 100 ML IV ONE (11:30)
[2018-05-02] MEDS ORDERED: POTASSIUM CHLORIDE 25 MEQ EFFERVESCENT TAB PO ONE (11:30)
--- NOTE | 2018-05-02 11:35 | PD.CARD.PN ---
Subjective Subjective Remarks NSVT episode this morning, patient asymptomatic No chest pain/SOB Objective Medications Current Medications Medications (Trade) Dose Ordered Sig/Alfa Route Start Time Stop Time Status Last Admin (NS Flush) 2 ml UNSCH PRN IV FLUSH 04/26/18 12:00 (NS Flush) 2 ml BID IV FLUSH 04/26/18 21:00 05/02/18 09:22 (Tylenol) 650 mg Q6H PRN PO 04/26/18 12:00 05/02/18 02:39 (Tears Naturale Opth Soln) 1 drop TID EACH EYE 04/26/18 13:00 04/29/18 18:00 (Duoneb Neb) 1 ampule Q2HR NEB PRN INH 04/26/18 12:00 05/02/18 10:49 (Heparin Inj) 5,000 units Q12H SQ 04/26/18 12:00 05/02/18 00:24 ([facility] Nursing Information) 1 Q361D XX 04/26/18 12:00 04/26/18 12:00 (Chlorhexidine 2% Cloth) Taper DAILY@04 TOP 04/27/18 04:00 04/23/19 03:59 05/02/18 04:00 (Chlorhexidine 2% Cloth) 3 pack UNSCH PRN TOP 04/26/18 12:00 (Evelin-Colace) 1 tab BID PO 04/26/18 21:00 04/30/18 09:58 (Milk Of Magnesia Liq) 30 ml Q12H PRN PO 04/26/18 12:00 (Senokot) 17.2 mg Q12H PRN PO 04/26/18 12:00 (Dulcolax Supp) 10 mg DAILY PRN RECTAL 04/26/18 12:00 (Lactulose Liq) 30 ml DAILY PRN PO 04/26/18 12:00 Piperacillin Sod/ Tazobactam Sod 100 ml @ 200 mls/hr Q6H IV 04/26/18 12:00 05/02/18 05:31 Azithromycin 500 mg/Sodium Chloride 250 ml @ 250 mls/hr Q24H IV 04/26/18 12:00 05/01/18 13:33 Potassium Chloride 100 ml @ 50 mls/hr Q2H PRN IV 04/26/18 12:00 Potassium Chloride 100 ml @ 50 mls/hr Q2H PRN IV 04/26/18 12:00 05/02/18 09:22 (K-Lyte Cl Eff) 50 meq UNSCH PRN PO 04/26/18 12:00 05/02/18 11:03 Potassium Chloride 100 ml @ 25 mls/hr UNSCH PRN IV 04/26/18 12:00 Potassium Chloride 100 ml @ 50 mls/hr Q2H PRN IV 04/26/18 12:00 04/28/18 20:06 Magnesium Sulfate 4 gm/Sodium Chloride 100 ml @ 50 mls/hr UNSCH PRN IV 04/26/18 12:00 (Mag-Ox) 800 mg UNSCH PRN PO 04/26/18 12:00 Magnesium Sulfate 2 gm/Sodium Chloride 100 ml @ 50 mls/hr UNSCH PRN IV 04/26/18 12:00 (K-Phos) 2,000 mg Q4H PRN PO 04/26/18 12:00 05/02/18 11:03 Sodium Phosphate 30 mmol/Sodium Chloride 250 ml @ 42 mls/hr UNSCH PRN IV 04/26/18 12:00 04/26/18 16:34 (K-Phos) 2,000 mg UNSCH PRN PO/TUBE 04/26/18 12:00 Potassium Phosphate 30 mmol/ Sodium Chloride 260 ml @ 42 mls/hr UNSCH PRN IV 04/26/18 12:00 04/30/18 10:00 (Peridex 0.12% Liq) 15 ml BID@08,20 MT 04/26/18 20:00 04/30/18 20:00 (Lactulose Liq) 30 ml DAILY PO 04/26/18 16:00 04/30/18 09:57 (Ativan Inj) 1 mg Q4H PRN IV PUSH 04/28/18 09:00 04/30/18 02:23 (NS Flush) 2 ml BID IV FLUSH 04/28/18 21:00 05/01/18 09:30 Multivitamins 10 ml/Folic Acid 1 mg/Sodium Chloride 510.2 ml @ 125 mls/hr Q24H IV 04/28/18 12:00 05/03/18 11:59 05/01/18 13:33 (Romazicon Inj) 0.2 mg Q1M PRN IV PUSH 04/28/18 10:45 (Ativan) 1 mg Q4H PRN PO 04/28/18 10:45 (Ativan Inj) 1 mg Q4H PRN IV PUSH 04/28/18 10:45 (Ativan) 2 mg Q2H PRN PO 04/28/18 10:45 04/29/18 21:28 (Ativan Inj) 2 mg Q2H PRN IV PUSH 04/28/18 10:45 04/30/18 01:44 (Ativan Inj) 2 mg Q1H PRN IV PUSH 04/28/18 10:45 04/29/18 10:39 (Ativan Inj) 2 mg Q15M PRN IV PUSH 04/28/18 10:45 04/29/18 12:33 (Pepcid Inj) 20 mg Q12HR IV PUSH 04/30/18 21:00 05/02/18 09:22 Potassium Chloride 100 ml @ 50 mls/hr ONCE ONCE IV 05/02/18 11:30 05/02/18 13:29 Vital Signs / I&O Vital Signs Date Time Temp Pulse Resp B/P (MAP) Pulse Ox O2 Delivery O2 Flow Rate FiO2 05/02/18 11:00 101 45 138/81 (100) 98 05/02/18 11:00 101 05/02/18 10:00 86 37 134/85 (101) 99 05/02/18 10:00 86 05/02/18 09:00 88 05/02/18 09:00 88 37 136/88 (104) 97 05/02/18 08:00 98.1 82 38 98 05/02/18 08:00 82 05/02/18 07:55 100 Nasal Cannula 2.00 05/02/18 07:00 89 36 132/74 (93) 98 05/02/18 07:00 89 05/02/18 07:00 95 Nasal Cannula 2.00 05/02/18 06:00 86 05/02/18 04:00 85 05/02/18 04:00 98.1 85 30 98 05/02/18 03:39 20 05/02/18 03:00 96 Nasal Cannula 2.00 05/02/18 02:00 98 05/02/18 00:00 86 05/02/18 00:00 98.1 86 43 131/78 (95) 97 05/01/18 22:00 103 05/01/18 20:00 117 05/01/18 20:00 98.6 117 49 139/101 (114) 99 05/01/18 19:00 95 Room Air 21 05/01/18 18:00 108 05/01/18 18:00 98.0 108 61 146/100 (115) 97 05/01/18 17:00 108 19 139/78 (98) 100 05/01/18 17:00 108 05/01/18 16:00 107 37 149/96 (113) 94 05/01/18 16:00 107 05/01/18 15:00 108 05/01/18 14:00 92 05/01/18 13:00 89 05/01/18 12:01 96 05/01/18 12:00 91 I/O 05/01/18 05/01/18 05/01/18 05/02/18 05/02/18 05/02/18 07:00 15:00 23:00 07:00 15:00 23:00 Intake Total 260 ml 600 ml 560 ml Output Total 1750 ml 2800 ml 2350 ml Balance -1490 ml -2200 ml -1790 ml Intake Oral 60 ml 400 ml 360 ml IV Total 200 ml 200 ml 200 ml Output Urine Total 1750 ml 2800 ml 2350 ml # Bowel Movements 0 1 2 Physical Exam GENERAL: NAD, resting comfortably SKIN: Warm and dry. HEAD: Atraumatic. Normocephalic. EYES: Pupils equal and round. No scleral icterus. No injection or drainage. ENT: No nasal bleeding or discharge. Mucous membranes pink and moist. NECK: Trachea midline. No JVD. CARDIOVASCULAR: Regular rate and rhythm. RESPIRATORY: No accessory muscle use. Clear to auscultation. Breath sounds equal bilaterally. GASTROINTESTINAL: Abdomen soft, non-tender, nondistended. Hepatic and splenic margins not palpable. MUSCULOSKELETAL: Extremities without clubbing, cyanosis, or edema. No obvious deformities. NEUROLOGICAL: Awake and alert. No obvious cranial nerve deficits. Motor grossly within normal limits. Five out of 5 muscle strength in the arms and legs. Normal speech. PSYCHIATRIC: Appropriate mood and affect; insight and judgment normal. Laboratory Laboratory Tests Test 05/02/18 06:50 White Blood Count 5.6 TH/MM3 Red Blood Count 3.61 MIL/MM3 Hemoglobin 10.9 GM/DL Hematocrit 32.0 % Mean Corpuscular Volume 88.6 FL Mean Corpuscular Hemoglobin 30.1 PG Mean Corpuscular Hemoglobin Concent 34.0 % Red Cell Distribution Width 14.1 % Platelet Count 242 TH/MM3 Mean Platelet Volume 8.5 FL Neutrophils (%) (Auto) 72.3 % Lymphocytes (%) (Auto) 16.4 % Monocytes (%) (Auto) 9.3 % Eosinophils (%) (Auto) 1.3 % Basophils (%) (Auto) 0.7 % Neutrophils # (Auto) 4.1 TH/MM3 Lymphocytes # (Auto) 0.9 TH/MM3 Monocytes # (Auto) 0.5 TH/MM3 Eosinophils # (Auto) 0.1 TH/MM3 Basophils # (Auto) 0.0 TH/MM3 CBC Comment DIFF FINAL Differential Comment Blood Urea Nitrogen 6 MG/DL Creatinine 0.66 MG/DL Random Glucose 151 MG/DL Albumin 2.1 GM/DL Calcium Level 9.0 MG/DL Phosphorus Level 2.2 MG/DL Magnesium Level 1.8 MG/DL Sodium Level 139 MEQ/L Potassium Level 2.9 MEQ/L Chloride Level 101 MEQ/L Carbon Dioxide Level 27.8 MEQ/L Anion Gap 10 MEQ/L Estimat Glomerular Filtration Rate 96 ML/MIN Assessment and Plan Problem List: (1) HTN (hypertension) ICD Codes: I10 - Essential (primary) hypertension (2) Cardiomyopathy ICD Codes: I42.9 - Cardiomyopathy, unspecified (3) Amphetamine abuse ICD Codes: F15.10 - Other stimulant abuse, uncomplicated (4) Adjustment disorder with mixed disturbance of emotions and conduct ICD Codes: F43.25 - Adjustment disorder with mixed disturbance of emotions and conduct (5) DAVIE (acute kidney injury) ICD Codes: N17.9 - Acute kidney failure, unspecified Status: Acute (6) Rhabdomyolysis ICD Codes: M62.82 - Rhabdomyolysis Status: Acute (7) Substance abuse ICD Codes: F19.10 - Other psychoactive substance abuse, uncomplicated Status: Acute (8) Acute respiratory failure with hypoxia and hypercapnia ICD Codes: J96.01 - Acute respiratory failure with hypoxia; J96.02 - Acute respiratory failure with hypercapnia Status: Acute Assessment and Plan 1) Amphetamine use/overdose Cessation 2) Acute respiratory failure s/p extubation 3) Cardiomyopathy, EF 30-35% Overall not a candidate for ischemic evaluation Most likely due to amphetamine use Con't medical management Started on Coreg due to Cardiomyopathy and NSVT, for alpha/beta blockade WILBERT-I 4) HTN Most likely due to withdrawal/encephalopathy Better on WILBERT-I 5) NSVT Most likely electrolyte induced Replace K+ but need Mag with it Will add BB therapy with Coreg for alpha/beta blockade Veto Mendez DO May 02, 2018 11:35
[2018-05-02] MEDS: MAGNESIUM SULFATE 1 GM PREMIX 100 ML IV SCH ×2 (11:45→12:41)
[2018-05-02] MEDS: AZITHROMYCIN INJ 500 MG in SODIUM CHLOR 0.9% 250 ML INJ 250 ML IV SCH (12:41)
--- NOTE | 2018-05-02 12:54 | HHI.PR ---
Subjective Remarks Nursing denies any deterioration since last night except for a tachyarrhythmia that self resolved. Patient herself has no new complaints. Denies any chest pain or shortness of breath. Objective Vital Signs Date Time Temp Pulse Resp B/P (MAP) Pulse Ox O2 Delivery O2 Flow Rate FiO2 05/02/18 11:00 101 45 138/81 (100) 98 05/02/18 11:00 101 05/02/18 10:00 86 37 134/85 (101) 99 05/02/18 10:00 86 05/02/18 09:00 88 05/02/18 09:00 88 37 136/88 (104) 97 05/02/18 08:00 98.1 82 38 98 05/02/18 08:00 82 05/02/18 07:55 100 Nasal Cannula 2.00 05/02/18 07:00 89 36 132/74 (93) 98 05/02/18 07:00 89 05/02/18 07:00 95 Nasal Cannula 2.00 05/02/18 06:00 86 05/02/18 04:00 85 05/02/18 04:00 98.1 85 30 98 05/02/18 03:39 20 05/02/18 03:00 96 Nasal Cannula 2.00 05/02/18 02:00 98 05/02/18 00:00 86 05/02/18 00:00 98.1 86 43 131/78 (95) 97 05/01/18 22:00 103 05/01/18 20:00 117 05/01/18 20:00 98.6 117 49 139/101 (114) 99 05/01/18 19:00 95 Room Air 21 05/01/18 18:00 108 05/01/18 18:00 98.0 108 61 146/100 (115) 97 05/01/18 17:00 108 19 139/78 (98) 100 05/01/18 17:00 108 05/01/18 16:00 107 37 149/96 (113) 94 05/01/18 16:00 107 05/01/18 15:00 108 05/01/18 14:00 92 05/01/18 13:00 89 I/O 05/01/18 05/01/18 05/01/18 05/02/18 05/02/18 05/02/18 07:00 15:00 23:00 07:00 15:00 23:00 Intake Total 260 ml 600 ml 560 ml Output Total 1750 ml 2800 ml 2350 ml Balance -1490 ml -2200 ml -1790 ml Intake Oral 60 ml 400 ml 360 ml IV Total 200 ml 200 ml 200 ml Output Urine Total 1750 ml 2800 ml 2350 ml # Bowel Movements 0 1 2 Result Diagram: 05/02/18 0650 05/02/18 0650 Objective Remarks Heart sounds are regular rate rhythm, no murmurs Lying in bed, on nasal cannula, unlabored breathing, no acute distress A/P Assessment and Plan New tachyarrhythmia possible NSVT versus aberrancy -Discussed with cardiology, increasing beta-blockers, monitor for another 24 hours on medical floor //Encephalopathy - resolved //Substance use disorder //Agitation/anxiety //Suicide attempt -overdose on his Sudafed and sleeping tablets Ativan prn anxiety TSH level-0.7 WNL = Continue [facility]WA protocol. Psychiatry following. appreciate assistance. //Acute hypoxic and hypercapnic respiratory failure - stabilized, post extubation //Probable aspiration PNA w/ obvious infiltrates on CTA done 2 days ago on my independent review of the film today Continue azithromycin and Zosyn Duo nebs =04/30. No signs of pulmonary embolism. //Systolic cardiomyopathy 04/27 echo -EF 30-35%, trace TR, no RWMA //Rhabdomyolysis - resolved ///AK I - resolved //Hyperammonemia - resolved //Prophylaxis: //GI Prophylaxis=Famotidine twice daily //DVT Prophylaxis:-- SCDs, Heparin SQ every 12 hours Discharge Planning Under Rondon Act per psych, anticipate d/c to psych in next 24 hours Lamont Cain MD May 02, 2018 12:54
[2018-05-02] MEDS: CARVEDILOL 6.25 MG TAB PO SCH ×2 (15:03→19:34)
[2018-05-02] MEDS: MULTIVITAMIN INJ 10 ML, FOLIC ACID INJ 1 MG in SODIUM CHLORID 0.9% 500 ML INJ 500 ML IV SCH (15:03)
[2018-05-02 17:48] LABS: PHOSPHORUS 2.7 MG/DL (2.5-4.9)
[2018-05-03] VITALS (7 sets, daily range): BP systolic 99–130; BP diastolic 63–90; PULSE 78–90; RESP 31–35; TEMP 98.2–99.1; O2SAT 92–95
[2018-05-03] MEDS: HEPARIN SODIUM - SQ 10,000 UNITS/ML VIAL SQ SCH ×2 (00:02→12:20)
[2018-05-03] MEDS: PIPERACIL-TAZO 4.5 GM PREMIX 100 ML IV SCH ×3 (00:02→12:21)
[2018-05-03] MEDS: CHLORHEXIDINE GLUCONATE 2 % 1 PACK (2 CLOTHS) TOP SCH (04:00)
[2018-05-03] MEDS: CHLORHEXIDINE 0.12% (ORAL KIT) 15 ML CUP MT SCH (08:00)
[2018-05-03] MEDS: CARVEDILOL 6.25 MG TAB PO SCH (08:06)
[2018-05-03] MEDS: LACTULOSE SYRUP 20 GM/30 ML CUP PO SCH (08:06)
[2018-05-03] MEDS: FAMOTIDINE 20 MG/2 ML VIAL IV PUSH SCH (08:06)
[2018-05-03] MEDS: ARTIFICIAL TEARS OPTH SOLN 15 ML BTL EACH EYE SCH ×2 (08:06→13:00)
[2018-05-03] MEDS: SODIUM CHLORIDE 0.9% FLUSH 10 ML FLUSH IV FLUSH SCH ×2 (08:07)
[2018-05-03] MEDS: DOCUSATE SODIUM 50 MG/SENNA 8.6 MG TAB PO SCH (08:07)
[2018-05-03] MEDS ORDERED: LEVO750T3 PO (09:36)
[2018-05-03] MEDS ORDERED: KLYTECL PO (09:36)
[2018-05-03] MEDS ORDERED: CARV6.25 PO (09:36)
[2018-05-03] MEDS ORDERED: LISI-519 PO (09:37)
[2018-05-03] MEDS ORDERED: SPIR25TA PO (09:37)
[2018-05-03] MEDS ORDERED: FUROSEMIDE 40 MG/4 ML VIAL IV PUSH ONE (09:45)
--- NOTE | 2018-05-03 10:17 | RADRPT ---
EXAM DATE: 05/03/2018 9:59 AM EDT AGE/SEX: 48 years / Female INDICATIONS: Shortness of breath and cough. CLINICAL DATA: This is the patient's subsequent encounter. Patient reports that signs and symptoms h ave been present for 4 - 6 days and indicates a pain score of 0/10. MEDICAL/SURGICAL HISTORY: None. None. COMPARISON: [facility], CHEST SINGLE AP, 04/28/2018. . FINDINGS: Single semiupright portable view of the chest demonstrate cardiomegaly with diffuse cephalization of pulmonary vasculature. This appearance is improved as compared to the prior exam. The lungs are gross ly clear. Previously noted airspace opacities have resolved. Osseous structures are unremarkable. CONCLUSION: Radiographic findings consistent with congestive heart failure. Overall appearance of the heart size and lungs have improved as compared to the prior exam. Electronically signed by: Michelle Yañez MD 05/03/2018 10:15 AM EDT
--- NOTE | 2018-05-03 11:08 | PD.CARD.PN ---
Subjective Subjective Remarks no CV complaints Objective Medications Current Medications Medications (Trade) Dose Ordered Sig/Alfa Route Start Time Stop Time Status Last Admin (NS Flush) 2 ml UNSCH PRN IV FLUSH 04/26/18 12:00 (NS Flush) 2 ml BID IV FLUSH 04/26/18 21:00 05/03/18 08:07 (Tylenol) 650 mg Q6H PRN PO 04/26/18 12:00 05/02/18 02:39 (Tears Naturale Opth Soln) 1 drop TID EACH EYE 04/26/18 13:00 04/29/18 18:00 (Duoneb Neb) 1 ampule Q2HR NEB PRN INH 04/26/18 12:00 05/02/18 20:02 (Heparin Inj) 5,000 units Q12H SQ 04/26/18 12:00 05/03/18 00:02 ([place] Nursing Information) 1 Q361D XX 04/26/18 12:00 04/26/18 12:00 (Chlorhexidine 2% Cloth) Taper DAILY@04 TOP 04/27/18 04:00 04/23/19 03:59 05/03/18 04:00 (Chlorhexidine 2% Cloth) 3 pack UNSCH PRN TOP 04/26/18 12:00 (Evelin-Colace) 1 tab BID PO 04/26/18 21:00 04/30/18 09:58 (Milk Of Magnesia Liq) 30 ml Q12H PRN PO 04/26/18 12:00 (Senokot) 17.2 mg Q12H PRN PO 04/26/18 12:00 (Dulcolax Supp) 10 mg DAILY PRN RECTAL 04/26/18 12:00 (Lactulose Liq) 30 ml DAILY PRN PO 04/26/18 12:00 Piperacillin Sod/ Tazobactam Sod 100 ml @ 200 mls/hr Q6H IV 04/26/18 12:00 05/03/18 05:53 Potassium Chloride 100 ml @ 50 mls/hr Q2H PRN IV 04/26/18 12:00 Potassium Chloride 100 ml @ 50 mls/hr Q2H PRN IV 04/26/18 12:00 05/02/18 09:22 (K-Lyte Cl Eff) 50 meq UNSCH PRN PO 04/26/18 12:00 05/02/18 11:03 Potassium Chloride 100 ml @ 25 mls/hr UNSCH PRN IV 04/26/18 12:00 Potassium Chloride 100 ml @ 50 mls/hr Q2H PRN IV 04/26/18 12:00 04/28/18 20:06 Magnesium Sulfate 4 gm/Sodium Chloride 100 ml @ 50 mls/hr UNSCH PRN IV 04/26/18 12:00 (Mag-Ox) 800 mg UNSCH PRN PO 04/26/18 12:00 Magnesium Sulfate 2 gm/Sodium Chloride 100 ml @ 50 mls/hr UNSCH PRN IV 04/26/18 12:00 05/02/18 11:54 (K-Phos) 2,000 mg Q4H PRN PO 04/26/18 12:00 05/02/18 11:03 Sodium Phosphate 30 mmol/Sodium Chloride 250 ml @ 42 mls/hr UNSCH PRN IV 04/26/18 12:00 04/26/18 16:34 (K-Phos) 2,000 mg UNSCH PRN PO/TUBE 04/26/18 12:00 Potassium Phosphate 30 mmol/ Sodium Chloride 260 ml @ 42 mls/hr UNSCH PRN IV 04/26/18 12:00 04/30/18 10:00 (Peridex 0.12% Liq) 15 ml BID@08,20 MT 04/26/18 20:00 04/30/18 20:00 (Lactulose Liq) 30 ml DAILY PO 04/26/18 16:00 05/03/18 08:06 (Ativan Inj) 1 mg Q4H PRN IV PUSH 04/28/18 09:00 04/30/18 02:23 (NS Flush) 2 ml BID IV FLUSH 04/28/18 21:00 05/01/18 09:30 Multivitamins 10 ml/Folic Acid 1 mg/Sodium Chloride 510.2 ml @ 125 mls/hr Q24H IV 04/28/18 12:00 05/03/18 11:59 05/02/18 15:03 (Romazicon Inj) 0.2 mg Q1M PRN IV PUSH 04/28/18 10:45 (Ativan) 1 mg Q4H PRN PO 04/28/18 10:45 (Ativan Inj) 1 mg Q4H PRN IV PUSH 04/28/18 10:45 (Ativan) 2 mg Q2H PRN PO 04/28/18 10:45 04/29/18 21:28 (Ativan Inj) 2 mg Q2H PRN IV PUSH 04/28/18 10:45 04/30/18 01:44 (Ativan Inj) 2 mg Q1H PRN IV PUSH 04/28/18 10:45 04/29/18 10:39 (Ativan Inj) 2 mg Q15M PRN IV PUSH 04/28/18 10:45 04/29/18 12:33 (Pepcid Inj) 20 mg Q12HR IV PUSH 04/30/18 21:00 05/03/18 08:06 (Coreg) 6.25 mg Q12HR PO 05/02/18 11:45 05/03/18 08:06 Vital Signs / I&O Vital Signs Date Time Temp Pulse Resp B/P (MAP) Pulse Ox O2 Delivery O2 Flow Rate FiO2 05/03/18 10:59 95 Nasal Cannula 2.50 05/03/18 07:00 95 Nasal Cannula 2.00 05/03/18 06:00 90 05/03/18 04:00 99.1 78 31 99/63 (75) 93 05/03/18 04:00 78 05/03/18 02:30 94 Nasal Cannula 2.00 05/03/18 02:00 87 05/03/18 00:00 98.2 81 31 130/90 (103) 92 05/03/18 00:00 81 05/02/18 22:00 78 05/02/18 20:03 94 05/02/18 20:00 98.5 96 44 131/86 (101) 91 05/02/18 20:00 96 05/02/18 19:00 95 Room Air 21 05/02/18 18:00 84 05/02/18 17:00 86 05/02/18 16:00 96 05/02/18 16:00 98.3 96 36 119/83 (95) 94 05/02/18 15:00 104 36 127/89 (102) 96 05/02/18 15:00 104 05/02/18 14:00 95 44 128/84 (99) 98 05/02/18 14:00 95 05/02/18 13:00 97 05/02/18 13:00 97 34 126/85 (99) 98 05/02/18 12:00 98.4 99 44 135/87 (103) 97 05/02/18 12:00 99 I/O 05/02/18 05/02/18 05/02/18 05/03/18 05/03/18 05/03/18 07:00 15:00 23:00 07:00 15:00 23:00 Intake Total 560 ml 450 ml 2110.2 ml 780 ml Output Total 2350 ml 1850 ml 800 ml Balance -1790 ml 450 ml 260.2 ml -20 ml Intake Oral 360 ml 1500 ml 680 ml IV Total 200 ml 450 ml 610.2 ml 100 ml Output Urine Total 2350 ml 1850 ml 800 ml # Bowel Movements 2 2 0 Physical Exam Alert Chest clear CV S1S2 RRR no edema Tele: no further [place] Laboratory Laboratory Tests Test 05/02/18 16:34 Potassium Level 3.9 MEQ/L Phosphorus Level 2.7 MG/DL Imaging Last 24 hours Impressions Chest X-Ray 05/03/18 0000 Signed Impressions: CONCLUSION: Radiographic findings consistent with congestive heart failure. Overall appeara nce of the heart size and lungs have improved as compared to the prior exam. Assessment and Plan Problem List: (1) HTN (hypertension) ICD Codes: I10 - Essential (primary) hypertension (2) Cardiomyopathy ICD Codes: I42.9 - Cardiomyopathy, unspecified (3) Amphetamine abuse ICD Codes: F15.10 - Other stimulant abuse, uncomplicated (4) Adjustment disorder with mixed disturbance of emotions and conduct ICD Codes: F43.25 - Adjustment disorder with mixed disturbance of emotions and conduct (5) DAVIE (acute kidney injury) ICD Codes: N17.9 - Acute kidney failure, unspecified Status: Acute (6) Rhabdomyolysis ICD Codes: M62.82 - Rhabdomyolysis Status: Acute (7) Substance abuse ICD Codes: F19.10 - Other psychoactive substance abuse, uncomplicated Status: Acute (8) Acute respiratory failure with hypoxia and hypercapnia ICD Codes: J96.01 - Acute respiratory failure with hypoxia; J96.02 - Acute respiratory failure with hypercapnia Status: Acute Assessment and Plan no further VT. Cleared for transfer Kiko Dunaway MD May 03, 2018 11:08
--- NOTE | 2018-05-03 13:32 | HHI.DS ---
Discharge Summary Admission Date April 26, 2018 at 12:02 Discharge Date: May 03, 2018 Admitting Diagnosis Acute hypoxic, hypercapnic respiratory failure (1) HTN (hypertension) ICD Code: I10 - Essential (primary) hypertension (2) Cardiomyopathy ICD Code: I42.9 - Cardiomyopathy, unspecified (3) Amphetamine abuse ICD Code: F15.10 - Other stimulant abuse, uncomplicated (4) DAVIE (acute kidney injury) ICD Code: N17.9 - Acute kidney failure, unspecified Status: Acute (5) Hyperammonemia ICD Code: E72.20 - Disorder of urea cycle metabolism, unspecified Status: Acute (6) Rhabdomyolysis ICD Code: M62.82 - Rhabdomyolysis Status: Acute Procedures intubation Brief History - From Admission HPI This is a 48yo female with unknown PMH that was transferred to [facility] ED for possible overdose. Per report the patient was in a hotel and pt was scheduled to check out of the hotel, and upon evaluation [facility] was called . The patient was found pt on the floor, mumbling and not responding appropriately. Per report there was drug paraphernalia on the floor in the hotel around the patient. The patient was noted to be in respiratory distress and O2 sat was in the 70s on room air. Pt placed on 100% nonrebreather mask and the O2 saturation increased to the 80s. In the ED , the patient was moving all extremities but was not oriented or answering questions. Pt was tachypneic with diffuse coarse breath sounds in bilateral lungs. Pt was emergently intubated. Imaging and laboratory studies reveal urine toxicity positive for amphetamines unable to obtain further history. Critical care medicine was consulted Allergies-Medications (Allergen,Severity, Reaction): Coded Allergies: No Allergy Information Available (Unverified , 04/26/18) Reported Meds & Prescriptions Reported Meds & Active Scripts Active Active Prescriptions or Reported Medications Unobtainable CBC/BMP: 05/02/18 0650 05/02/18 1634 Significant Findings Laboratory Tests Test 04/30/18 20:30 05/01/18 05:41 05/02/18 06:50 6/1/18 16:34 Red Blood Count 3.36 MIL/MM3 (4.00-5.30) 3.61 MIL/MM3 (4.00-5.30) Hemoglobin 10.2 GM/DL (11.6-15.3) 10.9 GM/DL (11.6-15.3) Hematocrit 30.4 % (35.0-46.0) 32.0 % (35.0-46.0) Neutrophils (%) (Auto) 71.9 % (16.0-70.0) 72.3 % (16.0-70.0) Monocytes (%) (Auto) 9.3 % (0.0-8.0) 9.3 % (0.0-8.0) Lymphocytes # (Auto) 0.8 TH/MM3 (1.0-4.8) 0.9 TH/MM3 (1.0-4.8) Random Glucose 58 MG/DL (74-106) 151 MG/DL (74-106) Total Protein 6.0 GM/DL (6.4-8.2) Albumin 2.0 GM/DL (3.4-5.0) 2.1 GM/DL (3.4-5.0) Phosphorus Level 2.3 MG/DL (2.5-4.9) 2.2 MG/DL (2.5-4.9) Alkaline Phosphatase 185 U/L (45-117) Total Bilirubin 1.2 MG/DL (0.2-1.0) Direct Bilirubin 0.7 MG/DL (0.0-0.2) Potassium Level 2.9 MEQ/L (3.5-5.1) 2.9 MEQ/L (3.5-5.1) Blood Urea Nitrogen 6 MG/DL (7-18) Procalcitonin 0.18 ng/mL (0.00-0.08) PE at Discharge course BS BL AAO x 3 Hospital Course Pt was admitted, intubated. Treated with antibiotics for obvious pneumonia noted on CT chest. Echo showed depressed EF. Eventually was extubated and weaned down to room air successfully. Was noted to be encephalopathic likely secondary to infection and drug abuse. Mental status returned to normal. Cardiology co-managed and helped stabilize tachyarrhythmia w/ Coreg w/ no recurrence. Psychiatry enforced Rondon act on the patient. pt tolerated po intake well, doing well on RA. Patient has met maximal benefit from hospitalization and is clinically stable for discharge to a med/psych facility. Will need to complete course of antibiotics for remainder of 9 days of Levaquin. Pt Condition on Discharge: Stable Discharge Disposition: Disch to Another Hospital Discharge Time: <= 30 minutes Discharge Instructions DIET: Follow Instructions for: Heart Healthy Diet Fluid Restrictions: 1500 Activities you can perform: See Additionl Instruction Other Activity Instructions: per PT Lamont Cain MD May 03, 2018 13:32
== END 2018-05-03 13:17 | DRG 917 ==
LOC: NEPC 10:42 → NEDA 12:02 → HIME 15:30
PROVIDERS: ADMIT Hospitalist; ATTEND Hospitalist
PROC: 5A1945Z Respiratory Ventilation, 24-96 Consecutive Hours (ICD-10-PCS; principal; 2018-04-26)
PROC: 0BH17EZ Insertion of Endotracheal Airway into Trachea, Via Natural or Artificial Opening (ICD-10-PCS; 2018-04-26)
DX: T42.6X4A Poisoning by other antiepileptic and sedative-hypnotic drugs, undetermined, initial encounter (principal); J96.02 Acute respiratory failure with hypercapnia; J69.0 Pneumonitis due to inhalation of food and vomit; G92 Toxic encephalopathy; I47.2 Ventricular tachycardia; J96.01 Acute respiratory failure with hypoxia; N17.9 Acute kidney failure, unspecified; E72.20 Disorder of urea cycle metabolism, unspecified; E87.2 Acidosis; I42.9 Cardiomyopathy, unspecified; M62.82 Rhabdomyolysis; F19.939 Other psychoactive substance use, unspecified with withdrawal, unspecified; I11.0 Hypertensive heart disease with heart failure; T17.990A Other foreign object in respiratory tract, part unspecified in causing asphyxiation, initial encounter; I50.9 Heart failure, unspecified; E83.39 Other disorders of phosphorus metabolism; Z78.1 Physical restraint status; F15.10 Other stimulant abuse, uncomplicated; Z91.5 Personal history of self-harm; F43.25 Adjustment disorder with mixed disturbance of emotions and conduct; Z59.0 Homelessness; Y92.59 Other trade areas as the place of occurrence of the external cause; E87.6 Hypokalemia; Z90.49 Acquired absence of other specified parts of digestive tract; F41.9 Anxiety disorder, unspecified
CPT/HCPCS: 31500; 36600; 51702; 70450; 71045; 71275; 76705; 80048; 80053; 80069; 80074; 80076; 80307; 81001; 82140; 82533; 82550; 82552; 82805; 83036; 83605; 83735; 83880; 83930; 84100; 84132; 84145; 84155; 84443; 84484; 84703; 85007; 85025; 85027; 85379; 85610; 85730; 87040; 87070; 87205; 87641; 93005; 93306; 93971; 94002; 94003; 94640; 94664; 95819; 96365; 96375; J0330; J0456; J0610; J1644; J1940; J2060; J2543; J3010; J3370; J3411; J3475; J3480; J7030; J7040; J7050; J7070; Q9967

== ENCOUNTER 2018-05-03 11:42 | Inpatient (IN) | payer SELFPAY ==
[~2018-05-03 11:42] MED LIST: CARV6.25 PO; KLYTECL PO; LEVO750T3 PO; LISI-519 PO; SPIR25TA PO
[2018-05-03] MEDS ORDERED: ALUMINUM/MAGNESIUM/SIMETH 30 ML CUP PO PRN (16:00)
[2018-05-03] MEDS ORDERED: ACETAMINOPHEN 325 MG TAB PO PRN (16:00)
[2018-05-03] MEDS ORDERED: MAGNESIUM HYDROXIDE SUSP 30 ML CUP PO PRN (16:00)
--- NOTE | 2018-05-03 16:10 | HHI.PYPN ---
Subjective Remarks Patient is transferred from medical floor was seen in consultation with Dr. Curtis who had initiated a Rondon act. Patient is admitted to that he has for overdose suicide attempt with multiple drugs including amphetamines. Patient is been medically cleared and transferred to [facility]. Dr. Curtis's H&P can be reviewed in his under visit [id number]. Patient seen by me today she is alert oriented white female appears stated age somewhat calmer did acknowledge this being a suicide attempt continues to have significant stress with relationship with her 6 children are in various placements at this time a quite vague placement issues and relationship issues. She continues to acknowledge the depression with poor sleep, poor appetite, though she denies voices or visions at this time she does acknowledge crying spells. We will start patient on Zoloft 25 mg daily. We will refrain from any benzodiazepines or opiates. We will have the hospitalist continue the consultation with us Review of Systems Except as stated in HPI: all other systems reviewed are Neg Mental Status Examination Appearance: Appropriate Consciousness: Alert Orientation: x4 Motor Activity: Normal gait Speech: Unremarkable, Pressured (Mildly), Rapid (Mildly) Language: Adequate Fund of Knowledge: Adequate Attention and Concentration: Other (Fair) Memory: Unremarkable Mood: Sad Affect: Other (Later increased range and intensity) Thought Process & Associations: Intact Thought Content: Appropriate Hallucination Type: None Delusion Type: None Suicidal Ideation: No (Denies at this time) Suicidal Plan: No Suicidal Intention: No Homicidal Ideation: No Homicidal Plan: No Homicidal Intention: No Insight: Fair Judgment: Impulsive Assessment & Plan Problem List: (1) Adjustment disorder with mixed disturbance of emotions and conduct ICD Codes: F43.25 - Adjustment disorder with mixed disturbance of emotions and conduct Assessment & Plan Estimated LOS: days 7 patient meets Rondon criteria will continue to be correct at this time I will do first opinion request second opinion. I feel she is able to sign for medications we will start her on Zoloft 25 mg daily. Hopeless be fairly short stay we will also continue the hospitalist consultation will us she can be returned to her living situation Justification for Cont. Inpt. At this time patient would decompensate a place to a lower level of care Discharge Planning Be determined Request HC Surrog/Guard Advoc?: No Pawan Garrido MD May 03, 2018 16:10
[2018-05-03] MEDS ORDERED: PILL SPLITTER OTHER PRN (16:15)
[2018-05-03] MEDS: SERTRALINE HCL 50 MG TAB PO SCH (16:25)
[2018-05-03 18:00] VITALS: BP 110/67; PULSE 80; RESP 17; TEMP 98.1; O2SAT 95
[2018-05-03] MEDS: CARVEDILOL 6.25 MG TAB PO SCH (20:32)
[2018-05-03] MEDS: hydrOXYzine HCL 50 MG TAB PO PRN ×2 (20:35→21:45)
[2018-05-04 05:22] VITALS: BP 117/57; PULSE 104; RESP 17; TEMP 98.4; O2SAT 95
--- NOTE | 2018-05-04 07:29 | PD.CONS ---
HPI Service [facility] Hospitalists Consult Requested By Primary Care Physician No Primary Care Physician Diagnoses: History of Present Illness Ms. Mckeon is a 48 year old female who was initially brought in by [facility] on 04/26 for a suspected drug overdose as she was found altered in a hotel room with drug paraphernalia. Her UDS was positive for amphetamines and she was emergently intubated in the ED for respiratory failure. She was found to have pneumonia, rhabdomyolysis, and hyperammonemia. Cardiology was consulted to assist in management of cardiomyopathy with EF 30-35% and tachyarrhythmias that were largely attributes to her amphetamine use. Psychiatry was also consulted who Rondon Acted the patient and recommended transfer to psychiatric unit once medically clear. The patient was stabilized and transferred to med/psych on 05/03 with a hospitalist consult for medical management. The patient is currently being treated for cardiomyopathy, tachyarrhythmia, and pneumonia. She is evaluated in the presence of her boyfriend. She has no acute complaints. Denies CP, edema, or SOB. Endorses occasional cough. She is looking forward to going home hopefully soon. Review of Systems Except as stated in HPI: all other systems reviewed are Neg Past Family Social History Allergies: Coded Allergies: No Known Allergies (Unverified , 05/03/18) Past Medical History HTN Methamphetamine abuse Dilated cardiomyopathy Past Surgical History Cholecystectomy Partial hysterectomy Sinus surgery Reported Medications Spironolactone 25 Mg Tab 12.5 Mg PO DAILY Lisinopril 5 Mg Tab 5 Mg PO DAILY Levofloxacin 750 Mg Tablet 750 Mg PO DAILY Effervescent Potassium Chloride 25 Meq (Potassium Bicarb/Potassium Chloride) 25 Meq Tab 50 Meq PO DAILY Coreg (Carvedilol) 6.25 Mg Tab 6.25 Mg PO Q12HR Active Ordered Medications Acetaminophen (Tylenol) 650 mg Q4H PRN PO Last administered on 05/03/18at 20:36; Admin Dose 650 MG; Start 05/03/18 at 16:00 Al Hydrox/Mg Hydrox/Simethicone (Mag-Al Plus Susp Liq) 30 ml Q6H PRN PO; Start 05/03/18 at 16:00 Albuterol/ Ipratropium (Duoneb Neb) 1 ampule Q6HR NEB PRN NEB; Start 05/04/18 at 07:30 Carvedilol (Coreg) 6.25 mg Q12HR PO Last administered on 05/04/18at 09:19; Admin Dose 6.25 MG; Start 05/03/18 at 21:00 Hydroxyzine HCl (Atarax) 50 mg Q6H PRN PO Last administered on 05/03/18at 21:45; Admin Dose 50 MG; Start 05/03/18 at 16:00 Levofloxacin (Levaquin) 750 mg DAILY PO Last administered on 05/04/18at 09:19; Admin Dose 750 MG; Start 05/04/18 at 09:00 Lisinopril (Prinivil) 5 mg DAILY PO Last administered on 05/04/18at 09:19; Admin Dose 5 MG; Start 05/04/18 at 09:00 Magnesium Hydroxide (Milk Of Ch[place] Liq) 30 ml DAILY PRN PO; Start 05/03/18 at 16:00 Miscellaneous (Pill Splitter) 1 ea UNSCH PRN OTHER; Start 05/03/18 at 16:15 Potassium Bicarb/ Potassium Chloride (K-Lyte Cl Eff) 50 meq DAILY PO Last administered on 05/04/18at 09:18; Admin Dose 50 MEQ; Start 05/04/18 at 09:00 Sertraline HCl (Zoloft) 25 mg DAILY PO Last administered on 05/04/18at 09:21; Admin Dose 25 MG; Start 05/03/18 at 16:15 Spironolactone (Aldactone) 12.5 mg DAILY PO Last administered on 05/04/18at 09:19 ; Admin Dose 12.5 MG; Start 05/04/18 at 09:00 Family History Cancer on both parents side Social History Lives with significant other Unemployed Daily drinker Physical Exam Vital Signs Vital Signs Date Time Temp Pulse Resp B/P (MAP) Pulse Ox O2 Delivery O2 Flow Rate FiO2 05/04/18 05:22 98.4 104 17 117/57 (77) 95 05/03/18 18:00 98.1 80 17 110/67 (81) 95 Physical Exam GENERAL: WN, WD female resting in bed in [facility]. SKIN: Warm and dry. HEENT: AT/NC. Pupils equal and round. MMM. NECK: Supple no tender LAD or JVD. HEART: RRR no m/r/g. LUNGS: CTAB without wheezes or crackles. ABDOMEN: +BS, soft, NT, ND. EXTREMITIES: No LE edema. 2+ pedal pulses. NEURO: Awake and alert. Nonfocal. PSYCH: Appropriate mood and affect. Assessment and Plan Assessment and Plan 48 year old female recently admitted on 04/28 for suspected amphetamine overdose resulting in acute respiratory failure, pneumonia, hyperammonemia, and rhabdomyolysis. She was medically optimized and transferred to [facility]/psych on 05/03. Hospitalist consulted for medical management. 1. Pneumonia - CXR on 05/03 showing cardiomegaly with diffuse cephalization of pulmonary vessels with resolution of previous airspace opacities; lungs grossly clear - Continue Levaquin until 05/12 - Supplemental O2 to maintain sats >92% - DuoNeb PRN 2. Tachyarrhythmia - Previously evaluated by cardiology on medical floor - Continue Coreg - Monitor vitals - Cessation of amphetamines 3. Cardiomyopathy with reduced EF of 30-35% - Continue Lisinopril, Spironolactone, and Carvedilol - Cessation of amphetamines 4. Normocytic anemia - Likely from acute illness - Continue to periodically monitor 5. Hypokalemia - Continue K-Lyte - Monitor metabolic profile - Check magnesium in the morning 6. Depression, drug overdose - Managed per psych Devi Walters MD May 04, 2018 07:29
[2018-05-04] MEDS ORDERED: RESP: ALBUTEROL 2.5 MG/IPRATROPIUM 0.5 MG NEB (PRN) NEB (07:30)
[2018-05-04] MEDS: POTASSIUM CHLORIDE 25 MEQ EFFERVESCENT TAB PO SCH (09:18)
[2018-05-04] MEDS: SPIRONOLACTONE 25 MG TAB PO SCH (09:19)
[2018-05-04] MEDS: CARVEDILOL 6.25 MG TAB PO SCH ×2 (09:19→20:21)
[2018-05-04] MEDS: LEVOFLOXACIN 750 MG TAB PO SCH (09:19)
[2018-05-04] MEDS: LISINOPRIL 5 MG TAB PO SCH (09:19)
[2018-05-04] MEDS: SERTRALINE HCL 50 MG TAB PO SCH (09:21)
--- NOTE | 2018-05-04 10:35 | HHI.PYPN ---
Subjective Remarks Patient is seen today with nurse Segundo, chart reviewed, patient compliant medications. Patient alert oriented still somewhat elevated with the mood space to consider somewhat rapid and pressured. Says her sleep is intermittent last night there are her roommate was somewhat noisy. She denies suicidality at this time, feels somewhat better knowing that her ex- is helping to take care of her 20-year-old daughter who is significant illness. For now continue treatment Review of Systems Except as stated in HPI: all other systems reviewed are Neg Mental Status Examination Appearance: Appropriate Consciousness: Alert Orientation: x4 Motor Activity: Normal gait Speech: Unremarkable, Pressured (Mildly), Rapid (Mildly) Language: Adequate Fund of Knowledge: Adequate Attention and Concentration: Other (Fair) Memory: Unremarkable Mood: Sad Affect: Other (Later increased range and intensity) Thought Process & Associations: Intact Thought Content: Appropriate Hallucination Type: None Delusion Type: None Suicidal Ideation: No (Denies at this time) Suicidal Plan: No Suicidal Intention: No Homicidal Ideation: No Homicidal Plan: No Homicidal Intention: No Insight: Fair Judgment: Impulsive Results Vitals/IOs Vital Signs Date Time Temp Pulse Resp B/P (MAP) Pulse Ox O2 Delivery O2 Flow Rate FiO2 05/04/18 05:22 98.4 104 17 117/57 (13) 95 Assessment & Plan Problem List: (1) Adjustment disorder with mixed disturbance of emotions and conduct ICD Codes: F43.25 - Adjustment disorder with mixed disturbance of emotions and conduct Assessment & Plan Estimated LOS: days patient is still depressed mood is improving somewhat she denies suicidality at this time. Feels better knowing her ex is helping to care for her 20-year-old daughter Justification for Cont. Inpt. At this time patient would decompensate a place to the lower level of care Discharge Planning To be determined Request HC Surrog/Guard Advoc?: No Pawan Garrido MD May 04, 2018 10:35
--- NOTE | 2018-05-04 13:07 | HHI.PYPN ---
Subjective Remarks This is a request for second opinion. Admission note was reviewed and I agree with the history. Patient was seen and case was discussed with nursing. Patient reveals to me that beside ending her life she had plans off ending the life of her terminally ill daughter. She becomes tearful and has guilty feelings about her attempt. She says she no longer has ideation intent or plans of hurting herself or her daughter. She is looking forward to greater future. Compliant with her medications. Safety plan reviewed. Mental Status Examination Appearance: Appropriate Consciousness: Alert Orientation: x4 Motor Activity: Normal gait Speech: Unremarkable, Rapid Language: Adequate Fund of Knowledge: Adequate Attention and Concentration: Other (Fair) Memory: Unremarkable Mood: Sad Affect: Labile, Other (Tearful) Thought Process & Associations: Intact Thought Content: Appropriate Hallucination Type: None Delusion Type: None Suicidal Ideation: No (Denies at this time) Suicidal Plan: No Suicidal Intention: No Homicidal Ideation: No Homicidal Plan: No Homicidal Intention: No Insight: Fair Judgment: Impulsive Results Vitals/IOs Vital Signs Date Time Temp Pulse Resp B/P (MAP) Pulse Ox O2 Delivery O2 Flow Rate FiO2 05/04/18 05:22 98.4 104 17 117/57 (77) 95 Intake and Output 05/04/18 05/04/18 05/05/18 08:00 16:00 00:00 Intake Total 240 ml Balance 240 ml Assessment & Plan Problem List: (1) Adjustment disorder with mixed disturbance of emotions and conduct ICD Codes: F43.25 - Adjustment disorder with mixed disturbance of emotions and conduct Assessment & Plan I suggest that her psychiatrist further explore her intent of harming her daughter and possibly make the daughter aware. Coal Feeder Operator, Dr. Kunz was called and told about the statement. Criteria for the first opinion include suicide attempt Justification for Cont. Inpt. Patient would decompensate in a less restrictive setting Request HC Surrog/Guard Advoc?: No Wai Hodge DO May 04, 2018 13:07
[2018-05-04 17:32] VITALS: BP 88/53; PULSE 74; RESP 16; TEMP 97.7; O2SAT 94
[2018-05-04] MEDS: hydrOXYzine HCL 50 MG TAB PO PRN (20:26)
[2018-05-05 06:04] VITALS: BP 99/64; PULSE 80; RESP 15; TEMP 98.2; O2SAT 97
[2018-05-05] MEDS: SPIRONOLACTONE 25 MG TAB PO SCH (09:00)
[2018-05-05] MEDS: LISINOPRIL 5 MG TAB PO SCH (09:00)
[2018-05-05] MEDS: POTASSIUM CHLORIDE 25 MEQ EFFERVESCENT TAB PO SCH (09:00)
[2018-05-05 10:14] LABS: AUTOMATED NEUTROPHIL # 7.1 TH/MM3 (1.8-7.7); BASOPHIL % 0.4 % (0.0-2.0); EOSINOPHIL # 0.1 TH/MM3 (0-0.4); EOSINOPHIL % 1.4 % (0.0-4.0); LYMPH % 16.2 % (9.0-44.0); LYMPHOCYTE # 1.5 TH/MM3 (1.0-4.8); MEAN CELL VOLUME 90.6 FL (80.0-100.0); MEAN CORPUSCULAR HEMOGLOBIN 30.2 PG (27.0-34.0); MEAN CORPUSCULAR HGB CONC 33.3 % (32.0-36.0); MEAN PLATELET VOLUME 8.4 FL (7.0-11.0); MONO % 6.1 % (0.0-8.0); MONOCYTE # 0.6 TH/MM3 (0-0.9); NEUT % 75.9 % (16.0-70.0); PLATELET COUNT 374 TH/MM3 (150-450); RED BLOOD COUNT 4.31 MIL/MM3 (4.00-5.30); RED CELL DISTRIBUTION WIDTH 14.8 % (11.6-17.2); WHITE BLOOD COUNT 9.3 TH/MM3 (4.0-11.0)
[2018-05-05 11:07] LABS: BICARBONATE 25.2 MEQ/L (21.0-32.0); CALCIUM 10.3 MG/DL (8.5-10.1); CREATININE 0.97 MG/DL (0.50-1.00); MAGNESIUM 2.3 MG/DL (1.5-2.5)
[2018-05-05] MEDS: LEVOFLOXACIN 750 MG TAB PO SCH (11:17)
[2018-05-05] MEDS: SERTRALINE HCL 50 MG TAB PO SCH (11:17)
[2018-05-05] MEDS: CARVEDILOL 6.25 MG TAB PO SCH ×2 (11:17→21:00)
--- NOTE | 2018-05-05 12:59 | HHI.HP ---
Provisional Diagnosis Admission Date May 03, 2018 at 13:34 [place] I. Adjustment disorder with mixed disturbances of emotion and conduct, amphetamine abuse Certification of Person's Competence To Provide Express and Informed Consent I have personally examined Cheryl Mckeon , a person being served at [facility] on, May 05, 2018 12:51. Express and informed consent means consent voluntarily given in writing, by a competent person, after sufficient explanation and disclosure of the subject matter involved to enable the person to make a knowing and willful decision without any element of force, fraud, deceit, duress, or other form of constraint or coercion. This person is 18 years of age or older, is not now known to be incompetent to consent to treatment with a guardian advocate, and does not have a health care surrogate or proxy currently making medical treatment decisions. I have found this person to be one of the following: [] Competent to provide express and informed consent, as defined above, for voluntary admission to this facility and is competent to provide express and informed consent for treatment. He/she has the consistent capacity to make well reasoned, willful, and knowing decisions concerning his or her medical or mental health treatment. The person fully and consistently understands the purpose of the admission for examination/placement and is fully capable of personally exercising all rights assured [place] [] Incompetent to provide express and informed consent to voluntary admission, and this is incompetent to provide express and informed consent to treatment. The person must be transferred to involuntary status and a petition for a guardian advocate filed with the Circuit Court. [] Refusing to provide express and informed consent to voluntary admission but is competent to provide express and informed consent for treatment. The person must be discharged or transferred to involuntary status. Form shall be completed within 24 hours of a person's arrival at the receiving facility and filed in the clinical record of each person: 1. Admitted on a voluntary basis 2. Permitted to provide express and informed consent to his/her own treatment 3. Allowed to transfer from involuntary to voluntary status 4. Prior to permitting a person to consent to his or her own treatment after having been previously found incompetent to consent to treatment. History of Present Illness Capacity: Lacks Capacity (Patient lacks capacity sign for admission patient is capacity signed for medication) HPI This is a late entry initial psychiatric history and physical on the above patient. Patient was initially admitted to the medical service 04/26 through visit [id number] patient is seen in consultation by Dr. Curtis recommended continuation of the [place] act. Patient came in overdosed on medication and urine toxicology positive for methamphetamine. Patient was transferred on 05/03 to the [facility] psych 4 E. unit where I saw her on 05/03 and dictated a detailed progress note on this lady. It appears an H&P should have been dictated thus there is this late entry. When patient seen on 05/03 she was alert oriented and some but still aroused and labile stating she was depressed over the exacerbation of her young adult daughters chronic disease. And being away from her. She also gave a somewhat confusing story about relationships between them and she has lived with intermittently in [place], with a man she is living with now appears to be caring for her, and her ex- who lives in [place]. Patient acknowledges that this was a suicide attempt. At that time if the patient met criteria under the [place]ondon act thus thus we initiated the first and second opinion petition's. I have also seen the patient done a progress note on 05/04 and I seen her already today 05/05 Review of Systems Except as stated in HPI: all other systems reviewed are Neg Past Psych History Psychological trauma history Patient denies Violence risk - others (6 mos) Low Violence risk - self (6 mos) Moderate patient had severe overdose suicide attempt Substance Abuse History Drugs/Alcohol past 12 months Patient methamphetamine abuser Past Family Social History Coded Allergies: No Known Allergies (Unverified , 05/03/18) Active Scripts Spironolactone (Spironolactone) 25 Mg Tab, 12.5 MG PO DAILY for heart failure, # 15 TAB 0 Refills Prov:Lamont Cain MD 05/03/18 Lisinopril (Lisinopril) 5 Mg Tab, 5 MG PO DAILY for heart failure, #30 TAB 0 Refills Prov:Lamont Cain MD 05/03/18 Levofloxacin (Levofloxacin) 750 Mg Tablet, 750 MG PO DAILY for Infection, #8 TAB 0 Refills Prov:Lamont Cain MD 05/03/18 Potassium Bicarb-Chloride Effervescent (Effervescent Potassium Chloride 25 Meq) 25 Meq Tab, 50 MEQ PO DAILY for Electrolyte Replacement, #60 TAB Prov:Lamont Cain MD 05/03/18 Carvedilol (Coreg) 6.25 Mg Tab, 6.25 MG PO Q12HR for heart failure and arhythmia , #60 TAB Prov:Lamont Cain MD 05/03/18 Current Medications Medications (Trade) Dose Ordered Sig/Alfa Route Start Time Stop Time Status Last Admin (Tylenol) 650 mg Q4H PRN PO 05/03/18 16:00 05/03/18 20:36 (Milk Of Magnesia Liq) 30 ml DAILY PRN PO 05/03/18 16:00 (Mag-Al Plus Susp Liq) 30 ml Q6H PRN PO 05/03/18 16:00 (Atarax) 50 mg Q6H PRN PO 05/03/18 16:00 05/04/18 20:26 (Coreg) 6.25 mg Q12HR PO 05/03/18 21:00 05/05/18 11:17 (Levaquin) 750 mg DAILY PO 05/04/18 09:00 05/05/18 11:17 (Prinivil) 5 mg DAILY PO 05/04/18 09:00 05/04/18 09:19 (K-Lyte Cl Eff) 50 meq DAILY PO 05/04/18 09:00 05/04/18 09:18 (Aldactone) 12.5 mg DAILY PO 05/04/18 09:00 05/04/18 09:19 (Zoloft) 25 mg DAILY PO 05/03/18 16:15 05/05/18 11:17 (Pill Splitter) 1 ea UNSCH PRN OTHER 05/03/18 16:15 (Duoneb Neb) 1 ampule Q6HR NEB PRN NEB 05/04/18 07:30 Family Psych History Unknown at this time Social History Patient 2 living with another man here [place] Patient's Strengths (min. 2) Patient verbal able access healthcare Physical Exam Patient medically cleared through prior admission Vital Signs Vital Signs Date Time Temp Pulse Resp B/P (MAP) Pulse Ox O2 Delivery O2 Flow Rate FiO2 05/05/18 06:04 98.2 80 15 99/64 (76) 97 I/O 05/05/18 05/05/18 05/06/18 08:00 16:00 00:00 Intake Total 720 ml 240 ml Balance 720 ml 240 ml Lab Results Test 05/05/18 09:19 White Blood Count 9.3 TH/MM3 Red Blood Count 4.31 MIL/MM3 Hemoglobin 13.0 GM/DL Hematocrit 39.0 % Mean Corpuscular Volume 90.6 FL Mean Corpuscular Hemoglobin 30.2 PG Mean Corpuscular Hemoglobin Concent 33.3 % Red Cell Distribution Width 14.8 % Platelet Count 374 TH/MM3 Mean Platelet Volume 8.4 FL Neutrophils (%) (Auto) 75.9 % Lymphocytes (%) (Auto) 16.2 % Monocytes (%) (Auto) 6.1 % Eosinophils (%) (Auto) 1.4 % Basophils (%) (Auto) 0.4 % Neutrophils # (Auto) 7.1 TH/MM3 Lymphocytes # (Auto) 1.5 TH/MM3 Monocytes # (Auto) 0.6 TH/MM3 Eosinophils # (Auto) 0.1 TH/MM3 Basophils # (Auto) 0.0 TH/MM3 CBC Comment DIFF FINAL Differential Comment Blood Urea Nitrogen 15 MG/DL Creatinine 0.97 MG/DL Random Glucose 123 MG/DL Calcium Level 10.3 MG/DL Magnesium Level 2.3 MG/DL Sodium Level 136 MEQ/L Potassium Level 4.4 MEQ/L Chloride Level 100 MEQ/L Carbon Dioxide Level 25.2 MEQ/L Anion Gap 11 MEQ/L Estimat Glomerular Filtration Rate 61 ML/MIN Mental Status Examination Appearance: Appropriate Consciousness: Alert Orientation: x4 Motor Activity: Normal gait Speech: Unremarkable, Rapid Language: Adequate Fund of Knowledge: Adequate Attention and Concentration: Other (Fair) Memory: Unremarkable Mood: Sad Affect: Labile, Other (Tearful) Thought Process & Associations: Intact Thought Content: Appropriate Hallucination Type: None Delusion Type: None Suicidal Ideation: No (Denies at this time) Suicidal Plan: No Suicidal Intention: No Homicidal Ideation: No Homicidal Plan: No Homicidal Intention: No Insight: Fair Judgment: Impulsive Assessment & Plan Problem List: (1) Adjustment disorder with mixed disturbance of emotions and conduct ICD Codes: F43.25 - Adjustment disorder with mixed disturbance of emotions and conduct (2) Amphetamine abuse ICD Codes: F15.10 - Other stimulant abuse, uncomplicated Assessment & Plan Estimated LOS: 5-7 days at time of admission to [facility]. patient met criteria for acute psychiatric hospitalization thus at the first opinion request second opinion. Continue the medication per the med reconciliation. Discharge plans need to be addressed perhaps return home with her friend Discharge Planning To be determined Request HC Surrog/Guard Advoc?: No Pawan Garrido MD May 05, 2018 12:58
--- NOTE | 2018-05-05 13:03 | HHI.PYPN ---
Subjective Remarks Patient seen in her room with nurse Segundo and medical student Maria M, chart reviewed, patient compliant medications. Patient still has a fairly rapid pressured speech, she is fairly intense low today she denies suicidality homicidality voice or visions. She still gets a little tearful when speaking about her daughter who is gravely ill she also states she does have a safe place to go to man she has been living with his family here. For now continue treatment. The patient remains stable the next 24-36 hours consider discharge with follow-up in the community Review of Systems Except as stated in HPI: all other systems reviewed are Neg Mental Status Examination Appearance: Appropriate Consciousness: Alert Orientation: x4 Motor Activity: Normal gait Speech: Unremarkable, Rapid Language: Adequate Fund of Knowledge: Adequate Attention and Concentration: Other (Fair) Memory: Unremarkable Mood: Sad Affect: Labile, Other (Tearful) Thought Process & Associations: Intact Thought Content: Appropriate Hallucination Type: None Delusion Type: None Suicidal Ideation: No (Denies at this time) Suicidal Plan: No Suicidal Intention: No Homicidal Ideation: No Homicidal Plan: No Homicidal Intention: No Insight: Fair Judgment: Impulsive Results Labs Test 05/05/18 09:19 White Blood Count 9.3 TH/MM3 Red Blood Count 4.31 MIL/MM3 Hemoglobin 13.0 GM/DL Hematocrit 39.0 % Mean Corpuscular Volume 90.6 FL Mean Corpuscular Hemoglobin 30.2 PG Mean Corpuscular Hemoglobin Concent 33.3 % Red Cell Distribution Width 14.8 % Platelet Count 374 TH/MM3 Mean Platelet Volume 8.4 FL Neutrophils (%) (Auto) 75.9 % Lymphocytes (%) (Auto) 16.2 % Monocytes (%) (Auto) 6.1 % Eosinophils (%) (Auto) 1.4 % Basophils (%) (Auto) 0.4 % Neutrophils # (Auto) 7.1 TH/MM3 Lymphocytes # (Auto) 1.5 TH/MM3 Monocytes # (Auto) 0.6 TH/MM3 Eosinophils # (Auto) 0.1 TH/MM3 Basophils # (Auto) 0.0 TH/MM3 CBC Comment DIFF FINAL Differential Comment Blood Urea Nitrogen 15 MG/DL Creatinine 0.97 MG/DL Random Glucose 123 MG/DL Calcium Level 10.3 MG/DL Magnesium Level 2.3 MG/DL Sodium Level 136 MEQ/L Potassium Level 4.4 MEQ/L Chloride Level 100 MEQ/L Carbon Dioxide Level 25.2 MEQ/L Anion Gap 11 MEQ/L Estimat Glomerular Filtration Rate 61 ML/MIN Vitals/IOs Vital Signs Date Time Temp Pulse Resp B/P (MAP) Pulse Ox O2 Delivery O2 Flow Rate FiO2 05/05/18 06:04 98.2 80 15 99/64 (76) 97 Intake and Output 05/05/18 05/05/18 05/06/18 08:00 16:00 00:00 Intake Total 720 ml 240 ml Balance 720 ml 240 ml Assessment & Plan Problem List: (1) Adjustment disorder with mixed disturbance of emotions and conduct ICD Codes: F43.25 - Adjustment disorder with mixed disturbance of emotions and conduct (2) Amphetamine abuse ICD Codes: F15.10 - Other stimulant abuse, uncomplicated Assessment & Plan Estimated LOS: days patient continues to show some signs of residual psychostimulant, she is overall somewhat calmer now denying suicidality. The patient continues to do well to discharge 2436 hrs. Justification for Cont. Inpt. At this time patient would decompensate a place to a lower level of care Discharge Planning Return to living with friend Request HC Surrog/Guard Advoc?: No Pawan Garrido MD May 05, 2018 13:03
--- NOTE | 2018-05-05 14:09 | HHI.PR ---
Subjective Remarks Follow-up visit drug overdose, pneumonia, rhabdomyolysis. Patient seen and examined today. Reports she is doing well. She reports occasional cough otherwise she is not short of breath, no dyspnea. States she has some sweating overnight but she thinks this is related to still withdrawal from drugs. Denies any SI/HI. Denies chest pain, palpitations, headaches, dizziness. Denies fevers, dysuria. Objective Vitals Vital Signs Date Time Temp Pulse Resp B/P (MAP) Pulse Ox O2 Delivery O2 Flow Rate FiO2 05/05/18 06:04 98.2 80 15 99/64 (76) 97 05/04/18 17:32 97.7 74 16 88/53 (65) 94 I/O 05/04/18 05/04/18 05/04/18 05/05/18 05/05/18 05/05/18 07:00 15:00 23:00 07:00 15:00 23:00 Intake Total 600 ml 480 ml 240 ml 720 ml Balance 600 ml 480 ml 240 ml 720 ml Intake Oral 600 ml 480 ml 240 ml 720 ml # Voids 1 1 Result Diagram: 05/05/1819 05/05/18918 Objective Remarks GENERAL: This is a well-nourished, well-developed patient, in no apparent distress. SKIN: Warm and dry. HEENT: Normocephalic. Pupils equal round and reactive. Nose without bleeding. Airway patent. NECK: Trachea midline. No JVD. Supple. CARDIOVASCULAR: Regular rate and rhythm without murmurs, gallops, or rubs. RESPIRATORY: Right base diminished. No wheezes, rales, or rhonchi. GASTROINTESTINAL: Abdomen soft, non-tender, nondistended. Bowel Sounds normoactive x4. MUSCULOSKELETAL: Extremities without clubbing, cyanosis, or edema. NEUROLOGICAL: Awake and alert. Oriented to time, place, person. No focal neuro deficit. Moves all extremities. Normal speech. A/P Assessment and Plan 48 year old female recently admitted on 04/28 for suspected amphetamine overdose resulting in acute respiratory failure, pneumonia, hyperammonemia, and rhabdomyolysis. She was medically optimized and transferred to med/psych on 05/03. Hospitalist consulted for medical management. Depression, drug overdose - Managed per psych Pneumonia - CXR on 05/03 showing cardiomegaly with diffuse cephalization of pulmonary vessels with resolution of previous airspace opacities; lungs grossly clear - Continue Levaquin until 05/12 - Supplemental O2 PRN to maintain sats >92% - DuoNeb PRN Tachyarrhythmia - Previously evaluated by cardiology on medical floor - Continue Coreg - Monitor vitals - Cessation of amphetamines Cardiomyopathy with reduced EF of 30-35% - Continue Lisinopril, Spironolactone, and Carvedilol - Cessation of amphetamines Normocytic anemia - Likely from acute illness - Continue to periodically monitor Hypokalemia -Recent potassium 4.4 -magnesium 2.3 -Check BMP tomorrow. DC potassium supplementation DVT prop early ambulation Rikki Sanchez May 05, 2018 14:09
[2018-05-05 18:00] VITALS: BP 102/60; PULSE 82; RESP 15; TEMP 98.3; O2SAT 96
[2018-05-06 06:00] VITALS: BP 103/53; PULSE 79; RESP 16; TEMP 98.9; O2SAT 98
[2018-05-06 07:50] LABS: BICARBONATE 24.2 MEQ/L (21.0-32.0); CALCIUM 10.3 MG/DL (8.5-10.1); CREATININE 1.08 MG/DL (0.50-1.00)
[2018-05-06] MEDS ORDERED: LISI-519 PO (09:39)
[2018-05-06] MEDS ORDERED: ZOLO25TA PO (09:39)
[2018-05-06] MEDS ORDERED: SPIR25TA PO (09:39)
[2018-05-06] MEDS ORDERED: CARV6.25 PO (09:39)
[2018-05-06] MEDS ORDERED: KLYTECL PO (09:39)
--- NOTE | 2018-05-06 09:44 | HHI.DS ---
Psychiatry Discharge Summary Inpatient Psychiatric care?: Yes Advance Directive: No Reason Not Provided: DOESN'T HAVE ONE Mental Health AdvanceDirective: No Health Care Proxy: No Admission Admission Date May 03, 2018 at 13:34 Admission Diagnosis: (1) Amphetamine abuse ICD Code: F15.10 - Other stimulant abuse, uncomplicated (2) Adjustment disorder with mixed disturbance of emotions and conduct ICD Code: F43.25 - Adjustment disorder with mixed disturbance of emotions and conduct Brief History This is a late entry initial psychiatric history and physical on the above patient. Patient was initially admitted to the medical service 04/26 through visit [id number] patient is seen in consultation by Dr. Curtis recommended continuation of the Rondon act. Patient came in overdosed on medication and urine toxicology positive for methamphetamine. Patient was transferred on 05/03 to the [facility] psych 4 E. unit where I saw her on 05/03 and dictated a detailed progress note on this lady. It appears an H&P should have been dictated thus there is this late entry. When patient seen on 05/03 she was alert oriented and some but still aroused and labile stating she was depressed over the exacerbation of her young adult daughters chronic disease. And being away from her. She also gave a somewhat confusing story about relationships between them and she has lived with intermittently in [place], with a man she is living with now appears to be caring for her, and her ex- who lives in [place]. Patient acknowledges that this was a suicide attempt. At that time if the patient met criteria under the [place]ondon act thus thus we initiated the first and second opinion petition's. I have also seen the patient done a progress note on 05/04 and I seen her already today 05/05 Tobacco Use In Past 30 Days: Smokeless Tobacco Alcohol Use: 4 or More Times Per Week Hospital Course Patient's hospital course was uneventful, she showed continued improvement from her stay on the medical side after the overdose of drugs and methamphetamine. She was compliant with medications. The intensity of her affect slowly softened so that by today the range and intensity were affect are within normal limits. She was persistent and denying suicidality homicidality voice or visions. We did meet today with Counselor Kumar medical student Maria M patient' s boyfriend Adryan with whom she will be living. The etiology of that she is doing well she is able to contract to do no harm she is also joey to absolute sobriety to follow up with Evin frye and with AA/NA no cervical patient is reached maximum benefit of this hospitalization patient to be discharged today with Rx 1 month over blood pressure medications and also Zoloft at 25 mg daily Results Blood Pressure 103 / 53 Vital Signs Date Time Temp Pulse Resp B/P (MAP) Pulse Ox O2 Delivery O2 Flow Rate FiO2 05/06/18 06:00 98.9 79 16 103/53 (70) 98 Laboratory Tests Test 05/05/18 09:19 05/06/18 06:54 Neutrophils (%) (Auto) 75.9 % (16.0-70.0) Random Glucose 123 MG/DL (74-106) 118 MG/DL (74-106) Calcium Level 10.3 MG/DL (8.5-10.1) 10.3 MG/DL (8.5-10.1) Estimat Glomerular Filtration Rate 61 ML/MIN (>89) 54 ML/MIN (>89) Blood Urea Nitrogen 19 MG/DL (7-18) Creatinine 1.08 MG/DL (0.50-1.00) Sodium Level 135 MEQ/L (136-145) Summary of Procedures None done Pending results at discharge: No Medications # of Antipsychotic meds at D/C: 0 Approp Antipsych med options 1 - Minimum of three failed multiple trials of monotherapy. 2 - Documented plan to taper to monotherapy due to previous use of multiple meds OR cross-taper in progress at D/C. 3 - Documentation of augmentation of Clozapine. 4 - Justification other than those listed in allowable values 1-3, document here : Discharge Discharge Date: May 06, 2018 Discharge Diagnosis: (1) Amphetamine abuse Diagnosis: Secondary ICD Code: F15.10 - Other stimulant abuse, uncomplicated (2) Adjustment disorder with mixed disturbance of emotions and conduct Diagnosis: Principal ICD Code: F43.25 - Adjustment disorder with mixed disturbance of emotions and conduct Pt Condition on Discharge: Stable Discharge Disposition: Discharge Home Discharge Instructions Diet Instructions: As Tolerated, No Restrictions Activities you can perform: Regular-No Restrictions Scheduled Appointment: Evin Frye (Also follow-up with AA/NA) Discharge Time > 30 minutes Mental Status Examination Appearance: Appropriate Consciousness: Alert Orientation: x4 Motor Activity: Normal gait Speech: Unremarkable, Rapid Language: Adequate Fund of Knowledge: Adequate Attention and Concentration: Other (Fair) Memory: Unremarkable Mood: Sad Affect: Labile, Other (Tearful) Thought Process & Associations: Intact Thought Content: Appropriate Hallucination Type: None Delusion Type: None Suicidal Ideation: No (Denies at this time) Suicidal Plan: No Suicidal Intention: No Homicidal Ideation: No Homicidal Plan: No Homicidal Intention: No Insight: Fair Judgment: Impulsive Discharge/Advance Care Plan Health Problems: (1) Adjustment disorder with mixed disturbance of emotions and conduct (2) Amphetamine abuse Goals to promote your health * To prevent worsening of your condition and complications * To maintain your health at the optimal level Directions to meet your goals Take your medications as prescribed Follow your dietary instruction Follow activity as directed Keep your appointments as scheduled Take your immunizations and boosters as scheduled If your symptoms worsen call your PCP, if no PCP go to Urgent Care Center or Emergency Room For 24/06 questions related to your inpatient stay or results of tests pending at discharge, please contact Dr. Pawan Garrido at Smoking is Dangerous to Your Health. Avoid second hand smoking Pawan Garrido MD May 06, 2018 09:44
[2018-05-06] MEDS ORDERED: LEVA750T9 PO (10:26)
--- NOTE | 2018-05-06 10:37 | HHI.PR ---
Subjective Remarks Follow-up visit drug overdose, pneumonia, rhabdomyolysis. Patient seen and examined today. Reports she is doing well. No acute issues overnight. Ready to go home. Discuss medication compliance and hydration, as well as follow up visits with PCP and Cardiology. Objective Vitals Vital Signs Date Time Temp Pulse Resp B/P (MAP) Pulse Ox O2 Delivery O2 Flow Rate FiO2 05/06/18 06:00 98.9 79 16 103/53 (70) 98 05/05/18 18:00 98.3 82 15 102/60 (74) 96 I/O 05/05/18 05/05/18 05/05/18 05/06/18 05/06/18 05/06/18 07:00 15:00 23:00 07:00 15:00 23:00 Intake Total 240 ml 1440 ml 960 ml 300 ml 240 ml Balance 240 ml 1440 ml 960 ml 300 ml 240 ml Intake Oral 240 ml 1440 ml 960 ml 300 ml 240 ml # Voids 1 1 Result Diagram: 05/05/18 0919 05/06/18 0654 Objective Remarks GENERAL: This is a well-nourished, well-developed patient, in no apparent distress. SKIN: Warm and dry. HEENT: Normocephalic. Pupils equal round and reactive. Nose without bleeding. Airway patent. NECK: Trachea midline. No JVD. Supple. CARDIOVASCULAR: Regular rate and rhythm without murmurs, gallops, or rubs. RESPIRATORY: Right base diminished. No wheezes, rales, or rhonchi. GASTROINTESTINAL: Abdomen soft, non-tender, nondistended. Bowel Sounds normoactive x4. MUSCULOSKELETAL: Extremities without clubbing, cyanosis, or edema. NEUROLOGICAL: Awake and alert. Oriented to time, place, person. No focal neuro deficit. Moves all extremities. Normal speech. A/P Assessment and Plan 48 year old female recently admitted on 04/28 for suspected amphetamine overdose resulting in acute respiratory failure, pneumonia, hyperammonemia, and rhabdomyolysis. She was medically optimized and transferred to med/psych on 05/03. Hospitalist consulted for medical management. Depression, drug overdose - Managed per psych Pneumonia - CXR on 05/03 showing cardiomegaly with diffuse cephalization of pulmonary vessels with resolution of previous airspace opacities; lungs grossly clear - Continue Levaquin until 05/12, decrease dose 500mg secondary to slight increase in MINER OPERATOR - Supplemental O2 PRN to maintain sats >92%. On RA no SOB - DuoNeb PRN Tachyarrhythmia - Previously evaluated by cardiology on medical floor - Continue Coreg - Monitor vitals - Cessation of amphetamines. counseled, receptive Cardiomyopathy with reduced EF of 30-35% - Continue Lisinopril, Spironolactone, and Carvedilol - Cessation of amphetamines -Discuss extensively compliance with medications. Follow up with PCP and Cardiology. Normocytic anemia - Likely from acute illness - Continue to periodically monitor Hypokalemia -Recent potassium 4.4 -magnesium 2.3 DVT prop early ambulation Clear for medical standpoint to Rikki Caceres May 06, 2018 10:37
[2018-05-06] MEDS: LISINOPRIL 5 MG TAB PO SCH (10:51)
[2018-05-06] MEDS: SPIRONOLACTONE 25 MG TAB PO SCH (10:51)
[2018-05-06] MEDS: CARVEDILOL 6.25 MG TAB PO SCH (10:52)
[2018-05-06] MEDS: SERTRALINE HCL 50 MG TAB PO SCH (10:52)
[2018-05-07] MEDS ORDERED: LEVOFLOXACIN 750 MG TAB PO SCH (09:00)
== END 2018-05-06 12:00 | disposition home or self-care (01) | DRG 882 ==
LOC: H4EA 13:34
PROVIDERS: ADMIT Psychiatry & Neurology Psychiatry; ATTEND Psychiatry & Neurology Psychiatry
DX: F43.25 Adjustment disorder with mixed disturbance of emotions and conduct (principal); J18.9 Pneumonia, unspecified organism; I42.9 Cardiomyopathy, unspecified; M62.82 Rhabdomyolysis; F15.10 Other stimulant abuse, uncomplicated; I10 Essential (primary) hypertension; R00.0 Tachycardia, unspecified; D64.9 Anemia, unspecified; E87.6 Hypokalemia; F32.9 Major depressive disorder, single episode, unspecified; Z91.5 Personal history of self-harm; Z90.710 Acquired absence of both cervix and uterus; Z90.49 Acquired absence of other specified parts of digestive tract
CPT/HCPCS: 80048; 83036; 83735; 85025